=== PATIENT | female | born 1965 | race Caucasian/White ===

== ENCOUNTER → 2018-01-21 | Outpatient (CLI) | payer OTHER ==
[~2018-01-21] MED LIST: CLONAZEPAM 1 MG1 M1 PO; LEXAPRO20 MG PO; NEURONTIN 300M300 M2 PO; NORCO 5-325 TA1 EACH PO; PHENERGAN 25 MG25 M1 PO; SEROQUEL; ZOCOR 10 MG TAB10 MG PO; ZOFRAN4 MG PO; [UNRECOGNIZED DRUG - OTHER] PO
== END ==
LOC: M.NUC 01-15 07:30
DX: K21.9 Gastro-esophageal reflux disease without esophagitis (principal)

== ENCOUNTER 2018-12-30 16:48 | Emergency (ER) | payer OTHER ==
[~2018-12-30] VITALS: Ht 167.6 cm; Wt 104.3 kg
[2018-12-30] MEDS ORDERED: REGLAN 10 MG TA10 MG PO (17:04)
[2018-12-30 17:40] LABS: ABSOLUTE BASOPHILS 0.1 thou/uL (0.0-0.2); ABSOLUTE EOSINOPHILS 0.1 thou/uL (0.0-0.7); ABSOLUTE LYMPHOCYTES 1.3 thou/uL (0.8-5.3); ABSOLUTE MONOCYTES 0.4 thou/uL (0.0-1.2); ABSOLUTE NEUTROPHILS 5.2 thou/uL (1.6-8.1); BASOPHILS 0.7 %; HEMATOCRIT 38.4 % (37.0-47.0); HEMOGLOBIN 13.2 gm/dL (12.0-15.0); LYMPHOCYTES 18.7 %; MCH 30.1 pg (26.0-34.0); MCHC 34.2 g/dL (28.0-37.0); MCV 87.9 fL (80.0-100.0); MPV 8.3 fl. (7.2-11.1); NUCLEATED RBCS 0 /100WBC; PLATELET COUNT* 181 thou/uL (150-400); POLYS 73.6 %; RBC 4.37 mil/uL (4.20-5.00); RDW-CV 15.6 % (10.5-14.5)
[2018-12-30 17:55] LABS: CREATININE 1.1 mg/dL (0.6-1.3)
[2018-12-30 17:58] LABS: POTASSIUM 2.9 mmol/L (3.5-5.1)
[2018-12-30 17:59] LABS: ALBUMIN 3.3 g/dL (3.4-5.0); MAGNESIUM 1.8 mg/dL (1.8-2.4); TOTAL BILIRUBIN 0.2 mg/dL (<0.1-1.0); TOTAL PROTEIN 7.3 g/dL (6.4-8.2)
[2018-12-30 18:52] LABS: URINE BILIRUBIN NEGATIVE (Negative); URINE BLOOD 1+ (Negative); URINE CLARITY CLEAR; URINE COLOR YELLOW; URINE GLUCOSE-RANDOM NEGATIVE (Negative); URINE KETONES NEGATIVE (Negative); URINE LEUKOCYTES-REFLEX NEGATIVE (Negative); URINE NITRITE-REFLEX NEGATIVE (Negative); URINE PROTEIN NEGATIVE (Negative); URINE UROBILINOGEN 0.2 E.U./dl (0.2-1.0)
[2018-12-30 19:02] LABS: BACTERIA-REFLEX 1-9 Few /HPF (None Seen); CRYSTALS None Seen /LPF (None Seen); HYALINE CASTS 0-3 Few /LPF (None Seen); MUCUS 0-3 Light strn/LPF (None Seen); SQUAMOUS >10 Many /LPF (0-3); URINE RBC 0-2 Rare /HPF (0-2); URINE WBC-REFLEX 0-5 Rare /HPF (0-5)
[2018-12-30 19:13] LABS: AMP/METHAMP Negative (Negative); BARBITURATES Negative (Negative); BENZODIAZEPINES POSITIVE (Negative); COCAINE Negative (Negative); METHADONE Negative (Negative); OPIATES Negative (Negative); PCP Negative (Negative); THC POSITIVE (Negative)
[2018-12-30 20:23] VITALS: BP 128/74
--- NOTE | 2018-12-31 10:05 | EKG ---
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: MEKA : 1965 Requested By: Anel Irby Order Number: [id number] MD: Reilly Laughlin Measurements Intervals [place] Rate: 98 P: 38 [place]: 167 QRS: -15 QRSD: 99 T: 62 QT: 369 QTc: 472 Interpretive Statements Sinus rhythm Probable left atrial enlargement Borderline left axis deviation Low voltage, precordial leads Abnormal R-wave progression, early transition No previous ECG available for comparison Electronically Signed On 12-31-2018 10:04:49 CDT by Reilly Laughlin [email or web address] <ELECTRONICALLY SIGNED> By: Reilly Laughlin MD, [facility] 12/31/18 1004 05 05 Reilly Laughlin MD, [facility] /EPI
== END 2018-12-30 19:46 | disposition home or self-care (01) ==
LOC: M.ERS 16:48
PROVIDERS: Personal Emergency Response Attendant
DX: E87.6 Hypokalemia (principal); R20.0 Anesthesia of skin; R20.2 Paresthesia of skin; F32.9 Major depressive disorder, single episode, unspecified; F41.9 Anxiety disorder, unspecified; Z90.710 Acquired absence of both cervix and uterus; Z90.49 Acquired absence of other specified parts of digestive tract; Z85.118 Personal history of other malignant neoplasm of bronchus and lung

== ENCOUNTER 2019-09-27 16:30 | Observation (INO) | payer OTHER ==
[~2019-09-27] VITALS: Ht 167.6 cm; Wt 90.7 kg
[~2019-09-27 16:30] MED LIST changes: +REGLAN 10 MG TA10 MG PO; -SEROQUEL; +SEROQUEL XR150 MG PO
[2019-09-27 16:38] VITALS: BP 126/78
[2019-09-27 16:55] LABS: ABSOLUTE BASOPHILS 0.1 thou/uL (0.0-0.2); ABSOLUTE EOSINOPHILS 0.1 thou/uL (0.0-0.7); ABSOLUTE LYMPHOCYTES 1.6 thou/uL (0.8-5.3); ABSOLUTE MONOCYTES 0.3 thou/uL (0.0-1.2); ABSOLUTE NEUTROPHILS 2.4 thou/uL (1.6-8.1); BASOPHILS 1.2 %; HEMATOCRIT 44.6 % (37.0-47.0); HEMOGLOBIN 15.6 gm/dL (12.0-15.0); LYMPHOCYTES 36.4 %; MCH 35.2 pg (26.0-34.0); MCHC 34.9 g/dL (28.0-37.0); MCV 100.6 fL (80.0-100.0); MONOCYTES 6.7 %; MPV 8.2 fl. (7.2-11.1); NUCLEATED RBCS 0 /100WBC; PLATELET COUNT* 136 thou/uL (150-400); POLYS 53.7 %; RBC 4.43 mil/uL (4.20-5.00); RDW-CV 15.8 % (10.5-14.5); WBC 4.4 thou/uL (4.0-11.0)
[2019-09-27 17:03] LABS: CALCIUM 8.9 mg/dL (8.5-10.1)
[2019-09-27 17:06] LABS: APTT 25.9 Seconds (25.0-31.3); PROTIME 10.7 Seconds (9.20-11.50)
[2019-09-27 17:14] LABS: ALBUMIN 3.4 g/dL (3.4-5.0); TOTAL BILIRUBIN 0.4 mg/dL (<0.1-1.0); TOTAL PROTEIN 6.7 g/dL (6.4-8.2)
[2019-09-27 21:30] LABS: URINE BILIRUBIN NEGATIVE (Negative); URINE BLOOD 1+ (Negative); URINE CLARITY CLEAR; URINE COLOR YELLOW; URINE GLUCOSE-RANDOM NEGATIVE (Negative); URINE KETONES NEGATIVE (Negative); URINE LEUKOCYTES-REFLEX NEGATIVE (Negative); URINE NITRITE-REFLEX NEGATIVE (Negative); URINE PROTEIN NEGATIVE (Negative); URINE SPECIFIC GRAVITY 1.025 (1.005-1.030)
[2019-09-27 21:41] LABS: BACTERIA-REFLEX 1-9 Few /HPF (None Seen); CASTS None Seen /LPF (None Seen); CRYSTALS None Seen /LPF (None Seen); SQUAMOUS 0-3 Few /LPF (0-3); URINE RBC 0-2 Rare /HPF (0-2); URINE WBC-REFLEX 0-5 Rare /HPF (0-5)
[2019-09-27 22:00] VITALS: BP 131/94
[2019-09-27 22:02] VITALS: BP 109/71
[2019-09-28] VITALS (8 sets, daily range): BP systolic 73–132; BP diastolic 51–84
--- NOTE | 2019-09-28 02:59 | NUR ---
ASSUMED CARE OF PT AT 2200 FROM THE ER. PT IS ALERT AND ORIENTED. VSS. PERRLA. NO COMPLAINTS OF PAIN. STEADY GAIT. PT IS IN SINUS RYTHM ON THE TELEMETRY. PT IS RESTING COMFORTABLY IN BED. RESPIRATIONS ARE EVEN AND NONLABORED. WILL CONTINUE TO MONITOR PT.
[2019-09-28] MEDS ORDERED: FLUCONAZOLE 10100 MG PO (07:53)
[2019-09-28] MEDS ORDERED: LEVAQUIN 750 M750 MG PO (07:53)
[2019-09-28 08:37] LABS: ABSOLUTE LYMPHOCYTES 1.1 thou/uL (0.8-5.3); ABSOLUTE MONOCYTES 0.4 thou/uL (0.0-1.2); ABSOLUTE NEUTROPHILS 2.6 thou/uL (1.6-8.1); BASOPHILS 0.7 %; EOSINOPHILS 1.2 %; HEMOGLOBIN 14.2 gm/dL (12.0-15.0); LYMPHOCYTES 25.8 %; MCH 34.8 pg (26.0-34.0); MCHC 34.7 g/dL (28.0-37.0); MCV 100.3 fL (80.0-100.0); MONOCYTES 9.4 %; MPV 7.6 fl. (7.2-11.1); NUCLEATED RBCS 0 /100WBC; PLATELET COUNT* 118 thou/uL (150-400); POLYS 62.9 %; RBC 4.09 mil/uL (4.20-5.00); RDW-CV 15.7 % (10.5-14.5); WBC 4.1 thou/uL (4.0-11.0)
[2019-09-28 09:04] LABS: ALBUMIN 3.2 g/dL (3.4-5.0); CALCIUM 8.3 mg/dL (8.5-10.1); CREATININE 0.9 mg/dL (0.6-1.3); POTASSIUM 3.2 mmol/L (3.5-5.1); TOTAL BILIRUBIN 0.5 mg/dL (<0.1-1.0); TOTAL PROTEIN 6.3 g/dL (6.4-8.2)
--- NOTE | 2019-09-28 13:42 | 2DMMODE ---
[place] [address] 2 D/M-MODE ECHOCARDIOGRAM Name: JAMESON BENOITNikos Knott Room: [address] [place]#: [id number] Admission: 09/27/19 Attend Phys: Rosalina Shepherd, Discharge: Date of : 67 Date of Service: 09/28/19 1341 Report #: [id number] THIS REPORT FOR: cc: Summer Alexander,Summer Valerio,Doug Schilling MD [facility] ~ APPROVED REPORT Study performed: 09/28/2019 10:06:59 EXAM: Comprehensive 2D, Doppler, and color-flow Echocardiogram Patient Location: In-Patient BSA: 2.00 HR: 94 bpm BP: 114/73 mmHg Other Information Study Quality: Fair Indications Atrial Fibrillation 2D Dimensions IVSd: 10.63 (7-11mm) LVOT Diam: 19.92 (18-24mm) LVDd: 44.24 mm PWd: 11.12 (7-11mm) Ascending Ao: 25.64 (22-36mm) LVDs: 35.22 (25-40mm) Aortic Root: 24.91 mm Volumes Left Atrial Volume (Systole) LA ESV Index: 19.60 mL/m2 Aortic Valve AoV Peak Tank.: 1.06 m/s AO Peak Gr.: 4.48 mmHg LVOT Max P.73 mmHg AO Mean Gr.: 2.43 mmHg LVOT Mean P.67 mmHg LVOT Max V: 0.83 m/s AO V2 VTI: 20.86 cm LVOT Mean V: 0.61 m/s JACQUELINE (VTI): 3.10 cm2 LVOT V1 VTI: 20.72 cm Mitral Valve E/A Ratio: 1.15 [place] [address] 2 D/M-MODE ECHOCARDIOGRAM Name: PRICE BENOIT Room: [address]#: [id number] Admission: 09/27/19 Attend Phys: Rosalina Shepherd, Discharge: Date of : 67 Date of Service: 09/28/19 1341 Report #: [id number] MV Decel. Time: 206.16 ms MV E Max Tank.: 0.87 m/s MV PHT: 59.79 ms MVA (PHT): 3.68 cm2 TDI E/Lateral E': 9.67 E/Medial E': 9.67 Medial E' Tank.: 0.09 m/s Lateral E' Tank.: 0.09 m/s Pulmonary Valve PV Peak Tank.: 0.77 m/s PV Peak Gr.: 2.35 mmHg Tricuspid Valve RAP Estimate: 5.00 mmHg TR Peak Gr.: 6.11 mmHg RVSP: 11.11 mmHg PA Pressure: 11.11 mmHg Left Ventricle The left ventricle is normal size. There is normal LV segmental wall motion. There is normal left ventricular wall thickness. Left ventricular systolic function is normal. The left ventricular ejection fraction is within the normal range. LVEF is 60-65%. The left ventricular diastolic function is normal. Right Ventricle The right ventricle is normal size. The right ventricular systolic function is normal. Atria The left atrium size is normal. The right atrium size is normal. Aortic Valve The aortic valve is normal in structure. No aortic regurgitation is present. There is no aortic valvular stenosis. Mitral Valve The mitral valve is normal in structure. There is no mitral valve regurgitation noted. No evidence of mitral valve stenosis. Tricuspid Valve The tricuspid valve is normal in structure. Trace tricuspid regurgitation. [place] [address] 2 D/M-MODE ECHOCARDIOGRAM Name: PRICE BENOIT Room: [address]#: [id number] Admission: 09/27/19 Attend Phys: Rosalina Shepherd, Discharge: Date of : 67 Date of Service: 09/28/19 1341 Report #: [id number] The pulmonary valve is normal in structure. There is no pulmonic valvular regurgitation. Great Vessels The aortic root is normal in size. IVC is normal in size and collapses >50% with inspiration. Pericardium There is no pericardial effusion. <Conclusion> The left ventricle is normal size. There is normal left ventricular wall thickness. Left ventricular systolic function is normal. The left ventricular ejection fraction is within the normal range. LVEF is 60-65%. The left ventricular diastolic function is normal. The right ventricle is normal size. The left atrium size is normal. The aortic valve is normal in structure. The mitral valve is normal in structure. The tricuspid valve is normal in structure. IVC is normal in size and collapses >50% with inspiration. There is no pericardial effusion. There is normal LV segmental wall motion. <ELECTRONICALLY SIGNED> By: Doug King MD, FACC 09/28/19 1341 1341 1341 Doug King MD, FACC /INF
--- NOTE | 2019-09-28 17:00 | NUR ---
ASSUMED CARE OF PT AROUND 0730 THIS AM. REFER TO ASSESSMENT. PT IN SR THIS SHIFT. ECHO OBTAINED. PT GIVEN HEART MONITOR FROM CARDIOLOGY TO TAKE HOME WITH HER. PT GIVEN IV BOLUS X2 TO CORRECT ORTHOSTATIC HYPOTENSION. PT GIVEN ROBERT HOSE TO WEAR AT HOME. OK WITH DISCHARGE FROM CARDIOLOGY AND HOSPITALIST. PT GIVEN DC INSTRUCTIONS AND VERBALIZES UNDERSTANDING. AWAITING US CAROTIDS BEFORE DC. NO OTHER CONCERNS AT THIS TIME. CLWR. WCTM.
--- NOTE | 2019-09-28 17:10 | NUR ---
PT.HAD PHYSICAL THERAPY. THEY RECOMMENDED A FRONT WHEEL WALKER FOR HOME. ROSARIO/PROVIDER [employer]US DAVIDE Knott FWW. ORDER OBTAINED AND FAXED TO HER. ORIGINAL COPY FOR David TO DISPENSE A WALKER FROM THEIR CONSIGNMENT CLOSET, IN FRONT OF CHART.
--- NOTE | 2019-09-29 08:38 | EKG ---
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 : 1965 Requested By: Dheeraj Gomez Order Number: [id number] MD: Jacky Rosenberg Measurements Intervals [place] Rate: 82 P: [place]: QRS: -29 QRSD: 120 T: 62 QT: 396 QTc: 463 Interpretive Statements Sinus rhythm with premature atrial contractions Baseline wander in lead(s) II,aVR,aVF Compared to ECG 12/30/2018 17:06:56 Premature atrial contractions now present Electronically Signed On 09-29-2019 8:38:00 CDT by Jacky Rosenberg [email or web address] <ELECTRONICALLY SIGNED> By: Jacky Rosenberg MD, FACC 09/29/19 0838 170 00 Jacky Rosenberg MD, FACC /EPI
--- NOTE | 2019-09-29 08:39 | EKG ---
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 : 1965 Requested By: Dheeraj Gomez Order Number: [id number] MD: Jacky Rosenberg Measurements Intervals [place] Rate: 81 P: [place]: QRS: -19 QRSD: 108 T: 50 QT: 413 QTc: 480 Interpretive Statements Sinus rhythm with premature atrial contractions borderline prolonged QT interval Compared to ECG 09/27/2019 17:01:19 No significant changes noted Electronically Signed On 09-29-2019 8:38:26 CDT by Jacky Rosenberg [email or web address] <ELECTRONICALLY SIGNED> By: Jacky Rosenberg MD, FAC 09/29/19 0838 1742 1742 Jacky Rosenberg MD, [facility] /EPI
== END 2019-09-28 17:30 | disposition home or self-care (01) ==
LOC: M.ERS 16:30 → M.TBA 18:18 → M.2W 18:18
PROVIDERS: Family Medicine; ADMIT Internal Medicine; ATTEND Internal Medicine
DX: I49.9 Cardiac arrhythmia, unspecified (principal); I48.91 Unspecified atrial fibrillation; I10 Essential (primary) hypertension; R42 Dizziness and giddiness; F41.9 Anxiety disorder, unspecified; F32.9 Major depressive disorder, single episode, unspecified

== ENCOUNTER 2019-10-03 18:16 | Observation (INO) | payer OTHER ==
[~2019-10-03] VITALS: Ht 167.6 cm; Wt 86.2 kg
[~2019-10-03 18:16] MED LIST changes: +FLUCONAZOLE 10100 MG PO; +LEVAQUIN 750 M750 MG PO
[2019-10-03 18:25] VITALS: BP 162/100
[2019-10-03 19:48] LABS: ABSOLUTE MONOCYTES 0.6 thou/uL (0.0-1.2); ABSOLUTE NEUTROPHILS 4.4 thou/uL (1.6-8.1); BASOPHILS 0.5 %; EOSINOPHILS 0.6 %; HEMATOCRIT 41.1 % (37.0-47.0); HEMOGLOBIN 14.2 gm/dL (12.0-15.0); LYMPHOCYTES 16.1 %; MCH 35.2 pg (26.0-34.0); MCHC 34.6 g/dL (28.0-37.0); MCV 101.7 fL (80.0-100.0); MONOCYTES 9.4 %; MPV 8.3 fl. (7.2-11.1); NUCLEATED RBCS 0 /100WBC; PLATELET COUNT* 109 thou/uL (150-400); POLYS 73.4 %; RBC 4.04 mil/uL (4.20-5.00); RDW-CV 15.7 % (10.5-14.5)
[2019-10-03 20:00] LABS: CALCIUM 8.8 mg/dL (8.5-10.1)
[2019-10-03 20:04] LABS: ALBUMIN 3.1 g/dL (3.4-5.0); TOTAL BILIRUBIN 0.5 mg/dL (<0.1-1.0); TOTAL PROTEIN 6.4 g/dL (6.4-8.2)
[2019-10-03 20:05] LABS: POTASSIUM 2.9 mmol/L (3.5-5.1)
[2019-10-03 20:18] LABS: MAGNESIUM 1.4 mg/dL (1.8-2.4)
[2019-10-03 20:51] LABS: URINE BILIRUBIN NEGATIVE (Negative); URINE BLOOD 1+ (Negative); URINE CLARITY CLEAR; URINE COLOR YELLOW; URINE GLUCOSE-RANDOM NEGATIVE (Negative); URINE KETONES NEGATIVE (Negative); URINE LEUKOCYTES-REFLEX NEGATIVE (Negative); URINE NITRITE-REFLEX NEGATIVE (Negative); URINE PROTEIN NEGATIVE (Negative); URINE SPECIFIC GRAVITY 1.025 (1.005-1.030)
[2019-10-03 21:01] LABS: BACTERIA-REFLEX 1-9 Few /HPF (None Seen); CASTS None Seen /LPF (None Seen); CRYSTALS None Seen /LPF (None Seen); SQUAMOUS 0-3 Few /LPF (0-3); URINE RBC 0-2 Rare /HPF (0-2); URINE WBC-REFLEX 0-5 Rare /HPF (0-5)
[2019-10-04] VITALS (7 sets, daily range): BP systolic 113–152; BP diastolic 72–90
[2019-10-04 09:05] LABS: CALCIUM 7.9 mg/dL (8.5-10.1); CREATININE 0.7 mg/dL (0.6-1.3); MAGNESIUM 1.4 mg/dL (1.8-2.4); POTASSIUM 3.1 mmol/L (3.5-5.1)
--- NOTE | 2019-10-04 09:07 | EKG ---
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: IN : 1965 Requested By: Anel Irby Order Number: [id number] MD: Jacky Rosenberg Measurements Intervals [place] Rate: 105 P: 58 NE: 164 QRS: -16 QRSD: 110 T: 84 QT: 364 QTc: 482 Interpretive Statements Sinus tachycardia Borderline left axis deviation Compared to ECG 09/27/2019 17:42:31 No significant changes Electronically Signed On 10-04-2019 9:07:29 CDT by Jacky Rosenberg [email or web address] <ELECTRONICALLY SIGNED> By: Jacky Rosenberg MD, FACC 10/04/19906 15 15 Jacky Rosenberg MD, [facility] /EPI
[2019-10-04 17:25] LABS: URINE POTASSIUM-RANDOM 36.8 mmol/L
[2019-10-04] MEDS ORDERED: SEROQUEL400 MG PO (21:48)
[2019-10-05] VITALS (9 sets, daily range): BP systolic 101–142; BP diastolic 50–91
[2019-10-05 08:09] LABS: POTASSIUM 3.3 mmol/L (3.5-5.1)
[2019-10-05 08:56] LABS: CREATININE 0.7 mg/dL (0.6-1.3); MAGNESIUM 1.5 mg/dL (1.8-2.4); PHOSPHORUS* 2.4 mg/dL (2.5-4.9)
[2019-10-05] MEDS ORDERED: LEVAQUIN 750 M750 MG PO ×3 (09:17→09:45)
[2019-10-05] MEDS ORDERED: FLUCONAZOLE 10100 MG PO ×3 (09:17→09:45)
[2019-10-05] MEDS ORDERED: NORCO 5-325 TA1 EAC1 PO ×2 (09:35→09:45)
[2019-10-05] MEDS ORDERED: ONDANSETRON HCL4 M2 PO ×2 (09:35→09:45)
[2019-10-05] MEDS ORDERED: MIDODRINE HCL 55 M1 PO (16:25)
--- NOTE | 2019-10-07 10:17 | CON ---
[address] [address] CONSULTATION Name: PRICE BENOIT Room: [address] Noelle Cuenca#: [id number] Admission: 10/03/19 Attend Phys: Sonny Drummond Discharge: 10/05/19 Date of : 67 Report #: [id number] THIS REPORT FOR: //name// cc: Summer Alexander Anna S. DO ~ THIS REPORT FOR: //name// CC: Summer Allen DATE OF SERVICE: 10/05/2019 REQUESTING PHYSICIAN: Ed Cannon DO. REASON FOR CONSULTATION: Hypokalemia, which is a recurrent problem. HISTORY OF PRESENT ILLNESS: The patient is a 54-year-old female with medical history significant for orthostatic hypotension, chronic atrial fibrillation, depression, history of COPD, history of lung cancer, restless legs syndrome, she presents with complaints of weakness. She was found to have recurrent syncopal episode and recurrent hypokalemia. Potassium is around 2.9-3.0. MEDICATIONS: At home reviewed. She is not on any medication that can cause hypokalemia. FAMILY HISTORY: Negative for hypokalemia. SOCIAL HISTORY: Former user of tobacco, current use of marijuana. No alcohol abuse. REVIEW OF SYSTEMS: Positive for overall weakness, poor appetite, depression, frequent dizziness. PAST SURGICAL HISTORY: Partial right pneumonectomy due to lung cancer. There is no evidence of residual mass or pneumonia or pneumothorax. PHYSICAL EXAMINATION: GENERAL: Awake, alert, oriented, in no acute distress. VITAL SIGNS: Blood pressure 101/67, heart rate is 95, afebrile. HEENT: Pupils are round. NECK: Fatty. LUNGS: Clear. CARDIOVASCULAR: Regular rate. ABDOMEN: Soft. LOWER EXTREMITIES: [place] [address] CONSULTATION Name: PRICE BENOIT Nikos Room: [address] Noelle Cuenca#: [id number] Admission: 10/03/19 Attend Phys: Sonny p[place] Discharge: 10/05/19 Date of : 67 Report #: [id number] LABORATORY DATA: Serum sodium 142, potassium 3.3, chloride 109, carbon dioxide 27, BUN 5, creatinine 0.7, magnesium 1.5, phosphorus 2.4, calcium 8.0. ASSESSMENT: Hypokalemia, coupled with hypocalcemia, hypophosphatemia and hypomagnesemia. Most likely, I think this is due to poor nutrition. Cannot rule out loss through the urine. PLAN: My plan is to collect a 24-hour urine for total potassium. If her potassium is high in the urine while it is low in the blood that would point towards renal potassium waste. So plan again is a 24-hour urine collection and will follow on potassium. Make sure we replace potassium, replace magnesium per protocol for now. <ELECTRONICALLY SIGNED> By: Paramjit Lora MD 10/07/19 1017 1529 1952Alexmarlon Lora MD /nt
== END 2019-10-05 17:15 | disposition home or self-care (01) ==
LOC: M.ERS 18:16 → M.TBA-ER 23:27 → M.2W 23:27
PROVIDERS: Internal Medicine; Personal Emergency Response Attendant; Registered Nurse; ADMIT Family Medicine; ATTEND Family Medicine
DX: E87.6 Hypokalemia (principal); I95.1 Orthostatic hypotension; M54.9 Dorsalgia, unspecified; G89.29 Other chronic pain; J44.9 Chronic obstructive pulmonary disease, unspecified; F41.9 Anxiety disorder, unspecified; B37.9 Candidiasis, unspecified; C34.91 Malignant neoplasm of unspecified part of right bronchus or lung; E83.51 Hypocalcemia; E83.39 Other disorders of phosphorus metabolism; E83.42 Hypomagnesemia; Z87.891 Personal history of nicotine dependence; Z90.49 Acquired absence of other specified parts of digestive tract; Z79.899 Other long term (current) drug therapy

== ENCOUNTER 2019-10-12 16:35 | Emergency (ER) | payer OTHER ==
[~2019-10-12] VITALS: Ht 167.6 cm; Wt 88.5 kg
[~2019-10-12 16:35] MED LIST changes: +MIDODRINE HCL 55 M1 PO; +NORCO 5-325 TA1 EAC1 PO; +ONDANSETRON HCL4 M2 PO; +SEROQUEL400 MG PO
[2019-10-12 18:50] VITALS: BP 100/69
[2019-10-12 18:56] LABS: URINE BILIRUBIN NEGATIVE (Negative); URINE BLOOD TRACE (Negative); URINE CLARITY CLEAR; URINE COLOR YELLOW; URINE GLUCOSE-RANDOM NEGATIVE (Negative); URINE KETONES NEGATIVE (Negative); URINE LEUKOCYTES-REFLEX NEGATIVE (Negative); URINE NITRITE-REFLEX NEGATIVE (Negative); URINE PROTEIN TRACE (Negative); URINE SPECIFIC GRAVITY >= 1.030 (1.005-1.030)
== END 2019-10-12 18:51 | disposition home or self-care (01) ==
LOC: M.ERS 16:35
PROVIDERS: Family Medicine
DX: E86.0 Dehydration (principal); R33.9 Retention of urine, unspecified; Z90.710 Acquired absence of both cervix and uterus; Z90.49 Acquired absence of other specified parts of digestive tract; Z98.51 Tubal ligation status; Z96.652 Presence of left artificial knee joint; Z85.118 Personal history of other malignant neoplasm of bronchus and lung

== ENCOUNTER 2019-10-17 23:59 | Observation (INO) | payer OTHER ==
[~2019-10-17] VITALS: Ht 170.2 cm; Wt 111.1 kg
[2019-10-18] VITALS (7 sets, daily range): BP systolic 93–138; BP diastolic 65–88
[2019-10-18 00:29] LABS: ABSOLUTE EOSINOPHILS 0.1 thou/uL (0.0-0.7); ABSOLUTE LYMPHOCYTES 1.3 thou/uL (0.8-5.3); ABSOLUTE MONOCYTES 0.4 thou/uL (0.0-1.2); ABSOLUTE NEUTROPHILS 2.8 thou/uL (1.6-8.1); BASOPHILS 0.6 %; EOSINOPHILS 1.5 %; HEMATOCRIT 42.5 % (37.0-47.0); HEMOGLOBIN 14.7 gm/dL (12.0-15.0); LYMPHOCYTES 28.3 %; MCH 35.1 pg (26.0-34.0); MCHC 34.7 g/dL (28.0-37.0); MCV 101.2 fL (80.0-100.0); MPV 7.7 fl. (7.2-11.1); NUCLEATED RBCS 0 /100WBC; PLATELET COUNT* 128 thou/uL (150-400); POLYS 60.6 %; RDW-CV 15.6 % (10.5-14.5); WBC 4.7 thou/uL (4.0-11.0)
[2019-10-18 00:38] LABS: CALCIUM 8.4 mg/dL (8.5-10.1); CREATININE 1.1 mg/dL (0.6-1.3); POTASSIUM 3.3 mmol/L (3.5-5.1)
[2019-10-18 00:42] LABS: TOTAL BILIRUBIN 0.4 mg/dL (<0.1-1.0); TOTAL PROTEIN 6.1 g/dL (6.4-8.2)
[2019-10-18 01:07] LABS: URINE BILIRUBIN NEGATIVE (Negative); URINE BLOOD TRACE (Negative); URINE CLARITY CLEAR; URINE COLOR YELLOW; URINE GLUCOSE-RANDOM NEGATIVE (Negative); URINE KETONES NEGATIVE (Negative); URINE LEUKOCYTES-REFLEX NEGATIVE (Negative); URINE NITRITE-REFLEX NEGATIVE (Negative); URINE PROTEIN NEGATIVE (Negative)
--- NOTE | 2019-10-18 04:06 | NUR ---
DAJUAN NOTIFIED UPON PT RETURN FROM CT. PT CONNECTED TO MONITOR
--- NOTE | 2019-10-18 05:50 | NUR ---
PATIENT PLACED ON HOSPITAL BED IN ED.
[2019-10-18 10:59] LABS: CALCIUM 7.9 mg/dL (8.5-10.1); CREATININE 0.8 mg/dL (0.6-1.3); MAGNESIUM 1.8 mg/dL (1.8-2.4); POTASSIUM 3.6 mmol/L (3.5-5.1)
--- NOTE | 2019-10-18 13:26 | EKG ---
[place] [address] ELECTROCARDIOGRAM REPORT Name: PRICE BENOIT Room: [address]#: [id number] Admission: 10/18/19 Attend Phys: Rosalina Shepherd, Discharge: Date of : 67 Date of Service: 10/18/19 0007 Report #: [id number] THIS REPORT FOR: //name// [facility] ED Test Date: 2019-10-18 Test Time: 00:07:38 Pat Name: PRICE BENOIT Department: Room: 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: : 1965 Requested By: Yola Brown Order Number: [id number] MD: Reilly Laughlin Measurements Intervals [place] Rate: 126 P: 45 [place]: 153 QRS: 13 QRSD: 102 T: 163 QT: 355 QTc: 515 Interpretive Statements Sinus tachycardia Probable left atrial enlargement RSR' in V1 or V2, right VCD or RVH Nonspecific T abnrm, anterolateral leads Prolonged QT interval Compared to ECG 10/03/2019 19:16:45 RSR' in V1 or V2 now present Prolonged QT interval now present Electronically Signed On 10-18-2019 13:26:49 CDT by Reilly Laughlin [email or web address] <ELECTRONICALLY SIGNED> By: Reilly Laughlin MD, [facility] 10/18/19 1326 Reilly Laughlin MD, [facility] /EPI
--- NOTE | 2019-10-18 15:51 | NUR ---
PT ADMITTED TO ROOM 226 AROUND 0825 THIS AM. REFER TO ASSESSMENT. CARDIOLOGY AND PSYCHOLOGY CONSULTED THIS SHIFT. AWAITING PSYCHOLOGISTS RECOMMENDATIONS AT THIS TIME. ANTICIPATE TILT TABLE TEST WITH CARDIOLOGY TOMORROW. PT TO BE NPO AFTER MIDNIGHT. ORTHOSTAT VSS OBTAINED THIS EVENING AND PT POSITIVE. PRN MIDODRINE ADMINISTERED. US TO CAROTIDS OBTAINED THIS SHIFT. POTASSIUM REPLACED THIS SHIFT. FALL PRECAUTIONS IN PLACE. NO OTHER CONCERNS AT THIS TIME. CLWR. WCTM.
--- NOTE | 2019-10-18 16:33 | NUR ---
Pt lives at home with . Pt has RW. Pt struggling with anxiety, medications contributing to symptoms according to the team and nurse says that she has informed the pt at recent previous admissions. Psych consulted. SW to continue to follow to assist with safe dc planning.
[2019-10-19] VITALS (16 sets, daily range): BP systolic 81–139; BP diastolic 52–90
--- NOTE | 2019-10-19 07:48 | NUR ---
Assumed pt care at approx 1930. Pt is awake and oriented x4. surveillance system monitor in place and is tracing SR. Pt is not in any distress. Pt c/o back pain relieved by pain meds given per JUN. Orthostatic BP is positive. Pt said she is not as dizzy as she has been. No acute changes overnight. Pt is advised to have nothing by mouth after midnight. Call light within reach. Hourly rounding done for pt safety. High fall precautions in place.
[2019-10-19] MEDS ORDERED: NEURONTIN 300M300 M2 PO (09:18)
[2019-10-19] MEDS ORDERED: SEROQUEL 100 M100 M1 PO (09:18)
[2019-10-19] MEDS ORDERED: MIDODRINE HCL10 MG PO (12:46)
--- NOTE | 2019-10-19 13:42 | NUR ---
PATIENT NPO FOR TILT TABLE TEST THIS AM, RESULTS SENT TO CARDIOLOGY AND ALEXANDRA GORDON HERE TO SEE PATIENT. PATIENT OK TO DISCHARGE HOME, FIRST DOSE OF INCREASED MIDODRINE GIVEN ORDERED. DR. WEINSTEIN NOTIFIED AND OK TO DISCHARGE. IV DC'D. PATIENT UP WITH ASSISTANCE THIS SHIFT. PRN HYDROCODONE GIVEN FOR BACK PAIN X 1. ORTHOSTATICS THIS AM WERE GIVEN TO DR. WEINSTEIN. VERBALIZES UNDERSTANDING OF PAPERWORK AND SCRIPT. PATIENT TAKEN OUT VIA WHEELCHAIR.
--- NOTE | 2019-10-21 14:43 | PROC ---
[address] [address] PROCEDURE REPORT Name: PRICE BENOIT Room: [address] Noelle Cuenca#: [id number] Admission: 10/18/19 Attend Phys: Rosalina Shepherd MD Discharge: 10/19/19 Date of : 67 Report #: [id number] THIS REPORT FOR: //name// cc: Summer Alexander Anna S. DO THIS REPORT FOR: //name// CC: Summer Shepherd DATE OF SERVICE: 10/19/2019 HEAD UPRIGHT TILT TABLE TEST TITLE OF PROCEDURE: Head upright tilt table testing. INDICATIONS: Head upright tilt-table testing was requested in this patient with a history of dizziness. PROCEDURE IN DETAIL: Head upright table testing was performed by placing the patient in the supine position. Vital signs were obtained in the resting position. ECG monitoring was performed throughout the procedure. RESULTS: The patient initially had a blood pressure of 103/74 with a pulse of 76. ECG showed a normal sinus rhythm. The patient was then elevated in the 70 degrees head upright position on the tilt table. After 5 minutes, the patient became lightheaded and blood pressure noted to be 93/72. The patient continued to complain of lightheadedness and blood pressure noted to be 80/55 with a pulse of 80 and in sinus rhythm. Because of the patient's symptoms and hypotensive findings, the procedure was abandoned. The patient was placed back into the supine position. At this time, blood pressure 134/66, pulse of 90 and she remained in sinus rhythm. IMPRESSION: 1. Suspicious head upright tilt-table testing for neurocardiogenic syncope. 2. The patient did demonstrate an orthostatic hypotensive response to head upright tilt-table testing. 3. Because of hypotension, the patient was not administered sublingual nitroglycerin. 4. There was no true syncope during the procedure. <ELECTRONICALLY SIGNED> By: Reilly Laughlin MD, [facility] 10/21/19 1443 1827 1905Reilly Laughlin MD, [facility] /nt
== END 2019-10-19 13:28 | disposition home or self-care (01) ==
LOC: M.ERS 23:59 → M.2W 10-18 05:24 → M.TBA-ER 10-18 05:24 → M.2W 10-18 08:36
PROVIDERS: Emergency Medicine; Internal Medicine; ADMIT Internal Medicine; ATTEND Internal Medicine
DX: Z03.818 Encounter for observation for suspected exposure to other biological agents ruled out (principal); R55 Syncope and collapse; G25.81 Restless legs syndrome; K31.84 Gastroparesis; G62.9 Polyneuropathy, unspecified; F32.9 Major depressive disorder, single episode, unspecified; F41.1 Generalized anxiety disorder; G47.00 Insomnia, unspecified; J44.9 Chronic obstructive pulmonary disease, unspecified; E87.6 Hypokalemia; Z85.118 Personal history of other malignant neoplasm of bronchus and lung

== ENCOUNTER 2019-10-23 19:34 | Emergency (ER) | payer OTHER ==
[~2019-10-23] VITALS: Ht 167.6 cm; Wt 78.9 kg
[~2019-10-23 19:34] MED LIST changes: +MIDODRINE HCL10 MG PO; +SEROQUEL 100 M100 M1 PO
[2019-10-23] MEDS ORDERED: PROAIR HFA8.5 GM INH (19:46)
[2019-10-23] MEDS ORDERED: SEROQUEL 100 M100 M1 PO (19:49)
[2019-10-23 19:55] LABS: ABSOLUTE BASOPHILS 0.1 thou/uL (0.0-0.2); ABSOLUTE EOSINOPHILS 0.1 thou/uL (0.0-0.7); ABSOLUTE LYMPHOCYTES 2.1 thou/uL (0.8-5.3); ABSOLUTE MONOCYTES 0.5 thou/uL (0.0-1.2); BASOPHILS 0.8 %; EOSINOPHILS 1.8 %; HEMATOCRIT 43.4 % (37.0-47.0); LYMPHOCYTES 30.8 %; MCH 35.3 pg (26.0-34.0); MCHC 34.7 g/dL (28.0-37.0); MCV 101.9 fL (80.0-100.0); MONOCYTES 7.9 %; MPV 7.8 fl. (7.2-11.1); NUCLEATED RBCS 0 /100WBC; PLATELET COUNT* 153 thou/uL (150-400); POLYS 58.7 %; RBC 4.25 mil/uL (4.20-5.00); RDW-CV 15.9 % (10.5-14.5); WBC 6.9 thou/uL (4.0-11.0)
[2019-10-23 20:07] LABS: INR 1.1; PROTIME 10.9 Seconds (9.20-11.50)
[2019-10-23 20:15] LABS: ALBUMIN 3.1 g/dL (3.4-5.0); TOTAL BILIRUBIN 0.4 mg/dL (<0.1-1.0); TOTAL PROTEIN 6.3 g/dL (6.4-8.2)
[2019-10-23 21:08] LABS: URINE BILIRUBIN NEGATIVE (Negative); URINE BLOOD NEGATIVE (Negative); URINE CLARITY CLEAR; URINE COLOR YELLOW; URINE GLUCOSE-RANDOM NEGATIVE (Negative); URINE KETONES NEGATIVE (Negative); URINE LEUKOCYTES-REFLEX NEGATIVE (Negative); URINE NITRITE-REFLEX NEGATIVE (Negative); URINE PROTEIN NEGATIVE (Negative); URINE SPECIFIC GRAVITY 1.025 (1.005-1.030); URINE UROBILINOGEN 0.2 E.U./dl (0.2-1.0)
[2019-10-23 22:47] VITALS: BP 123/85
--- NOTE | 2019-10-24 11:21 | EKG ---
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: : 1965 Requested By: Yola Brown Order Number: [id number] MD: Reilly Laughlin Measurements Intervals [place] Rate: 104 P: 56 MT: 154 QRS: -4 QRSD: 106 T: 88 QT: 330 QTc: 434 Interpretive Statements Sinus tachycardia Probable left atrial enlargement RSR' in V1 or V2, probably normal variant Compared to ECG 10/18/2019 00:07:38 rate has slowed Prolonged QT interval no longer present Electronically Signed On 10-24-2019 11:21:32 CDT by Reilly Laughlin [email or web address] <ELECTRONICALLY SIGNED> By: Reilly Laughlin MD, FAC 10/24/19 1121 1939 1939 Reilly Laughlin MD, [facility] /EPI
[2020-01-28] MEDS ORDERED: FLUDROCORTISON0.1 MG PO (09:21)
== END 2019-10-23 22:48 | disposition home or self-care (01) ==
LOC: M.ERS 19:34
PROVIDERS: Emergency Medicine
DX: F41.9 Anxiety disorder, unspecified (principal); R07.89 Other chest pain; R10.13 Epigastric pain; R10.32 Left lower quadrant pain; G25.81 Restless legs syndrome; G62.9 Polyneuropathy, unspecified; G89.29 Other chronic pain; F32.9 Major depressive disorder, single episode, unspecified; Z90.710 Acquired absence of both cervix and uterus; Z90.49 Acquired absence of other specified parts of digestive tract; Z98.51 Tubal ligation status; Z85.118 Personal history of other malignant neoplasm of bronchus and lung; Z96.652 Presence of left artificial knee joint

== ENCOUNTER 2019-10-24 21:52 | Emergency (ER) | payer OTHER ==
[~2019-10-24] VITALS: Ht 170.2 cm; Wt 81.7 kg
[~2019-10-24 21:52] MED LIST changes: +PROAIR HFA8.5 GM INH
[2019-10-24 22:17] LABS: ABSOLUTE EOSINOPHILS 0.1 thou/uL (0.0-0.7); ABSOLUTE LYMPHOCYTES 1.1 thou/uL (0.8-5.3); ABSOLUTE MONOCYTES 0.4 thou/uL (0.0-1.2); ABSOLUTE NEUTROPHILS 4.6 thou/uL (1.6-8.1); BASOPHILS 0.6 %; HEMATOCRIT 44.9 % (37.0-47.0); HEMOGLOBIN 15.4 gm/dL (12.0-15.0); MCHC 34.2 g/dL (28.0-37.0); MCV 102.3 fL (80.0-100.0); MONOCYTES 5.9 %; MPV 7.8 fl. (7.2-11.1); NUCLEATED RBCS 0 /100WBC; PLATELET COUNT* 149 thou/uL (150-400); POLYS 74.5 %; RBC 4.39 mil/uL (4.20-5.00); RDW-CV 16.2 % (10.5-14.5); WBC 6.2 thou/uL (4.0-11.0)
[2019-10-24 22:27] LABS: CALCIUM 9.2 mg/dL (8.5-10.1)
[2019-10-24 22:32] LABS: ALBUMIN 3.5 g/dL (3.4-5.0); TOTAL BILIRUBIN 0.5 mg/dL (<0.1-1.0); TOTAL PROTEIN 6.7 g/dL (6.4-8.2)
[2019-10-24 23:33] LABS: URINE BILIRUBIN NEGATIVE (Negative); URINE BLOOD TRACE (Negative); URINE CLARITY CLEAR; URINE COLOR YELLOW; URINE GLUCOSE-RANDOM NEGATIVE (Negative); URINE KETONES TRACE (Negative); URINE LEUKOCYTES-REFLEX NEGATIVE (Negative); URINE NITRITE-REFLEX NEGATIVE (Negative); URINE PROTEIN NEGATIVE (Negative); URINE SPECIFIC GRAVITY 1.025 (1.005-1.030); URINE UROBILINOGEN 0.2 E.U./dl (0.2-1.0)
[2019-10-25 00:48] VITALS: BP 146/95
== END 2019-10-25 00:48 | disposition home or self-care (01) ==
LOC: M.ERS 21:52
PROVIDERS: Emergency Medicine
DX: K31.84 Gastroparesis (principal); R11.2 Nausea with vomiting, unspecified; G25.81 Restless legs syndrome; G62.9 Polyneuropathy, unspecified; G89.29 Other chronic pain; F32.9 Major depressive disorder, single episode, unspecified; F41.9 Anxiety disorder, unspecified; Z90.710 Acquired absence of both cervix and uterus; Z90.49 Acquired absence of other specified parts of digestive tract; Z98.51 Tubal ligation status; Z96.652 Presence of left artificial knee joint; Z85.118 Personal history of other malignant neoplasm of bronchus and lung

== ENCOUNTER 2019-10-27 19:55 | Emergency (ER) | payer OTHER ==
[~2019-10-27] VITALS: Ht 167.6 cm; Wt 81.7 kg
[2019-10-27 21:02] LABS: ABSOLUTE LYMPHOCYTES 0.9 thou/uL (0.8-5.3); ABSOLUTE MONOCYTES 0.9 thou/uL (0.0-1.2); ABSOLUTE NEUTROPHILS 6.6 thou/uL (1.6-8.1); BASOPHILS 0.3 %; EOSINOPHILS 0.5 %; HEMATOCRIT 41.1 % (37.0-47.0); HEMOGLOBIN 14.1 gm/dL (12.0-15.0); LYMPHOCYTES 10.8 %; MCH 34.9 pg (26.0-34.0); MCHC 34.4 g/dL (28.0-37.0); MCV 101.5 fL (80.0-100.0); MONOCYTES 10.2 %; MPV 8.1 fl. (7.2-11.1); NUCLEATED RBCS 0 /100WBC; PLATELET COUNT* 124 thou/uL (150-400); POLYS 78.2 %; RBC 4.05 mil/uL (4.20-5.00); RDW-CV 15.7 % (10.5-14.5); WBC 8.4 thou/uL (4.0-11.0)
[2019-10-27 21:10] LABS: CALCIUM 8.6 mg/dL (8.5-10.1); CREATININE 0.9 mg/dL (0.6-1.3); POTASSIUM 3.4 mmol/L (3.5-5.1)
[2019-10-27 21:20] LABS: ALBUMIN 3.2 g/dL (3.4-5.0); TOTAL BILIRUBIN 0.6 mg/dL (<0.1-1.0); TOTAL PROTEIN 5.9 g/dL (6.4-8.2)
[2019-10-27 22:35] LABS: URINE BILIRUBIN NEGATIVE (Negative); URINE BLOOD NEGATIVE (Negative); URINE CLARITY CLEAR; URINE COLOR YELLOW; URINE GLUCOSE-RANDOM NEGATIVE (Negative); URINE KETONES NEGATIVE (Negative); URINE LEUKOCYTES-REFLEX NEGATIVE (Negative); URINE NITRITE-REFLEX NEGATIVE (Negative); URINE PROTEIN NEGATIVE (Negative)
[2019-10-27 22:43] LABS: AMP/METHAMP Negative (Negative); BARBITURATES Negative (Negative); BENZODIAZEPINES Negative (Negative); COCAINE Negative (Negative); METHADONE Negative (Negative); OPIATES POSITIVE (Negative); PCP Negative (Negative); THC POSITIVE (Negative)
[2019-10-27] MEDS ORDERED: HYDROCODON-ACE1 EAC7 PO (23:18)
[2019-10-27] MEDS ORDERED: MELOXICAM15 MG PO (23:18)
[2019-10-27 23:50] VITALS: BP 161/95
[2020-01-28] MEDS ORDERED: FLUDROCORTISON0.1 MG PO (09:21)
== END 2019-10-27 23:50 | disposition home or self-care (01) ==
LOC: M.ERS 19:55
PROVIDERS: Personal Emergency Response Attendant
DX: S83.8X2A Sprain of other specified parts of left knee, initial encounter (principal); I95.1 Orthostatic hypotension; G62.9 Polyneuropathy, unspecified; G25.81 Restless legs syndrome; F32.9 Major depressive disorder, single episode, unspecified; F41.9 Anxiety disorder, unspecified; Z90.710 Acquired absence of both cervix and uterus; Z98.51 Tubal ligation status; Z90.49 Acquired absence of other specified parts of digestive tract; Z96.652 Presence of left artificial knee joint; Z85.118 Personal history of other malignant neoplasm of bronchus and lung; W18.39XA Other fall on same level, initial encounter; Y93.89 Activity, other specified; Y92.89 Other specified places as the place of occurrence of the external cause; Y99.8 Other external cause status

== ENCOUNTER 2019-11-06 23:14 | Emergency (ER) | payer OTHER ==
[~2019-11-06 23:14] MED LIST changes: +HYDROCODON-ACE1 EAC7 PO; +MELOXICAM15 MG PO
[2020-01-05] MEDS ORDERED: GABAPENTIN100 MG PO ×2 (20:15)
[2020-01-05] MEDS ORDERED: QUETIAPINE FUM100 MG PO ×4 (20:16)
[2020-01-05] MEDS ORDERED: MIDODRINE HCL10 MG PO ×2 (20:17)
[2020-01-05] MEDS ORDERED: FLUDROCORTISON0.1 MG PO ×2 (20:18)
[2020-01-08] MEDS ORDERED: PROTONIX40 M2 PO ×2 (12:14)
[2020-01-08] MEDS ORDERED: SENNA S TABLET1 EACH PO ×2 (12:15)
== END 2019-11-06 23:29 | disposition left against medical advice (07) ==
LOC: M.ERS 23:14
DX: Z53.21 Procedure and treatment not carried out due to patient leaving prior to being seen by health care provider (principal)

== ENCOUNTER 2019-11-07 05:41 | Emergency (ER) | payer OTHER ==
[~2019-11-07] VITALS: Ht 167.6 cm; Wt 81.7 kg
[2019-11-07 06:52] LABS: URINE BILIRUBIN NEGATIVE (Negative); URINE BLOOD NEGATIVE (Negative); URINE CLARITY CLEAR; URINE COLOR YELLOW; URINE GLUCOSE-RANDOM NEGATIVE (Negative); URINE KETONES NEGATIVE (Negative); URINE LEUKOCYTES-REFLEX NEGATIVE (Negative); URINE NITRITE-REFLEX NEGATIVE (Negative); URINE PROTEIN NEGATIVE (Negative); URINE UROBILINOGEN 0.2 E.U./dl (0.2-1.0)
[2019-11-07 08:36] VITALS: BP 122/70
== END 2019-11-07 08:37 | disposition home or self-care (01) ==
LOC: M.ERS 05:41
PROVIDERS: Emergency Medicine
DX: R33.9 Retention of urine, unspecified (principal); G89.29 Other chronic pain; G62.9 Polyneuropathy, unspecified; G25.81 Restless legs syndrome; Z90.710 Acquired absence of both cervix and uterus; Z90.49 Acquired absence of other specified parts of digestive tract; Z98.51 Tubal ligation status; Z96.652 Presence of left artificial knee joint; Z85.118 Personal history of other malignant neoplasm of bronchus and lung

== ENCOUNTER 2019-11-21 00:10 | Emergency (ER) | payer OTHER ==
[~2019-11-21] VITALS: Ht 167.6 cm; Wt 81.7 kg
[2019-11-21 01:08] LABS: ABSOLUTE EOSINOPHILS 0.1 thou/uL (0.0-0.7); ABSOLUTE LYMPHOCYTES 1.3 thou/uL (0.8-5.3); ABSOLUTE MONOCYTES 0.5 thou/uL (0.0-1.2); BASOPHILS 0.7 %; HEMATOCRIT 42.9 % (37.0-47.0); HEMOGLOBIN 14.8 gm/dL (12.0-15.0); LYMPHOCYTES 21.9 %; MCHC 34.5 g/dL (28.0-37.0); MCV 101.3 fL (80.0-100.0); MONOCYTES 8.3 %; MPV 7.9 fl. (7.2-11.1); NUCLEATED RBCS 0 /100WBC; PLATELET COUNT* 160 thou/uL (150-400); POLYS 68.1 %; RBC 4.23 mil/uL (4.20-5.00); RDW-CV 15.3 % (10.5-14.5); WBC 5.9 thou/uL (4.0-11.0)
[2019-11-21 01:13] LABS: APTT 25.1 Seconds (25.0-31.3); PROTIME 10.6 Seconds (9.20-11.50)
[2019-11-21 01:18] LABS: ALBUMIN 2.9 g/dL (3.4-5.0); CALCIUM 8.9 mg/dL (8.5-10.1); CREATININE 0.9 mg/dL (0.6-1.3); POTASSIUM 3.6 mmol/L (3.5-5.1); TOTAL BILIRUBIN 0.4 mg/dL (<0.1-1.0); TOTAL PROTEIN 6.2 g/dL (6.4-8.2)
[2019-11-21] MEDS ORDERED: HYDROCODON-ACE1 EAC7 PO (02:29)
[2019-11-21 02:51] VITALS: BP 131/94
--- NOTE | 2019-11-22 14:39 | EKG ---
[place] [address] ELECTROCARDIOGRAM REPORT Name: PRICE BENOIT Room: [facility]#: [id number] Admission: 11/21/19 Attend Phys: Discharge: 11/21/19 Date of : 67 Date of Service: 11/21/19 0016 Report #: [id number] THIS REPORT FOR: //name// [facility] ED Test Date: 2019-11-21 Test Time: 00:16:07 Pat Name: PRICE BENOIT Department: Room: Gender: Pattern Filer: : 1965 Requested By: Anel Irby Order Number: [id number] MD: Doug King Measurements Intervals [place] Rate: 120 P: [place]: QRS: -11 QRSD: 100 T: 88 QT: 315 QTc: 445 Interpretive Statements Sinus tachycardia RSR' in V1 or V2, right VCD or RVH Compared to ECG 10/23/2019 19:39:58 sinus tachycardia persists Electronically Signed On 11-22-2019 14:39:15 CDT by Doug King [email or web address] <ELECTRONICALLY SIGNED> By: Doug King MD, [facility] 11/22/19 1439 0016 0016 Doug King MD, [facility] /EPI
== END 2019-11-21 02:53 | disposition home or self-care (01) ==
LOC: M.ERS 00:10
PROVIDERS: Personal Emergency Response Attendant
DX: S80.02XA Contusion of left knee, initial encounter (principal); R55 Syncope and collapse; G62.9 Polyneuropathy, unspecified; G25.81 Restless legs syndrome; G89.29 Other chronic pain; F32.9 Major depressive disorder, single episode, unspecified; F41.9 Anxiety disorder, unspecified; Z90.710 Acquired absence of both cervix and uterus; Z90.49 Acquired absence of other specified parts of digestive tract; Z98.51 Tubal ligation status; Z96.652 Presence of left artificial knee joint; Z85.118 Personal history of other malignant neoplasm of bronchus and lung; W18.39XA Other fall on same level, initial encounter; Y93.89 Activity, other specified; Y92.89 Other specified places as the place of occurrence of the external cause; Y99.8 Other external cause status

== ENCOUNTER 2019-12-01 20:55 | Emergency (ER) | payer OTHER ==
[~2019-12-01] VITALS: Ht 167.6 cm; Wt 81.7 kg
[2019-12-01 21:52] LABS: ABSOLUTE BASOPHILS 0.1 thou/uL (0.0-0.2); ABSOLUTE EOSINOPHILS 0.1 thou/uL (0.0-0.7); ABSOLUTE LYMPHOCYTES 0.9 thou/uL (0.8-5.3); ABSOLUTE MONOCYTES 0.4 thou/uL (0.0-1.2); ABSOLUTE NEUTROPHILS 6.6 thou/uL (1.6-8.1); BASOPHILS 0.8 %; HEMATOCRIT 46.7 % (37.0-47.0); HEMOGLOBIN 15.9 gm/dL (12.0-15.0); LYMPHOCYTES 11.8 %; MCH 34.5 pg (26.0-34.0); MCHC 34.1 g/dL (28.0-37.0); MCV 101.3 fL (80.0-100.0); MONOCYTES 4.6 %; MPV 8.2 fl. (7.2-11.1); NUCLEATED RBCS 0 /100WBC; PLATELET COUNT* 211 thou/uL (150-400); POLYS 81.8 %; RBC 4.61 mil/uL (4.20-5.00); RDW-CV 15.1 % (10.5-14.5)
[2019-12-01 21:57] LABS: CALCIUM 9.2 mg/dL (8.5-10.1); CREATININE 0.9 mg/dL (0.6-1.3); POTASSIUM 3.8 mmol/L (3.5-5.1)
[2019-12-01 22:01] LABS: ALBUMIN 3.5 g/dL (3.4-5.0); TOTAL BILIRUBIN 0.6 mg/dL (<0.1-1.0); TOTAL PROTEIN 6.9 g/dL (6.4-8.2)
[2019-12-01 23:25] VITALS: BP 141/105
== END 2019-12-01 23:40 | disposition home or self-care (01) ==
LOC: M.ERS 20:55
PROVIDERS: Personal Emergency Response Attendant
DX: K56.41 Fecal impaction (principal); R11.10 Vomiting, unspecified; F12.90 Cannabis use, unspecified, uncomplicated; G25.81 Restless legs syndrome; G89.29 Other chronic pain; Z79.899 Other long term (current) drug therapy; Z90.710 Acquired absence of both cervix and uterus; Z90.49 Acquired absence of other specified parts of digestive tract; Z98.51 Tubal ligation status; Z96.652 Presence of left artificial knee joint; Z85.118 Personal history of other malignant neoplasm of bronchus and lung

== ENCOUNTER 2019-12-02 03:50 | Emergency (ER) | payer OTHER ==
[~2019-12-02] VITALS: Ht 167.6 cm; Wt 81.7 kg
[2019-12-02 06:38] VITALS: BP 137/100
== END 2019-12-02 06:39 | disposition home or self-care (01) ==
LOC: M.ERS 03:50
DX: K31.84 Gastroparesis (principal); G25.81 Restless legs syndrome; G89.29 Other chronic pain; G62.9 Polyneuropathy, unspecified; Z90.710 Acquired absence of both cervix and uterus; Z90.49 Acquired absence of other specified parts of digestive tract; Z98.51 Tubal ligation status; Z96.652 Presence of left artificial knee joint; Z85.118 Personal history of other malignant neoplasm of bronchus and lung

== ENCOUNTER 2020-01-05 20:00 | Observation (INO) | payer OTHER ==
[~2020-01-05] VITALS: Ht 167.6 cm; Wt 82.6 kg
[2020-01-05 20:11] VITALS: BP 105/78
[2020-01-05] MEDS ORDERED: GABAPENTIN100 MG PO (20:15)
[2020-01-05] MEDS ORDERED: QUETIAPINE FUM100 MG PO ×2 (20:16)
[2020-01-05] MEDS ORDERED: MIDODRINE HCL10 MG PO (20:17)
[2020-01-05] MEDS ORDERED: FLUDROCORTISON0.1 MG PO (20:18)
[2020-01-05 20:35] LABS: URINE BILIRUBIN NEGATIVE (Negative); URINE BLOOD TRACE (Negative); URINE CLARITY CLEAR; URINE COLOR DARK YELLOW; URINE GLUCOSE-RANDOM NEGATIVE (Negative); URINE KETONES NEGATIVE (Negative); URINE LEUKOCYTES-REFLEX NEGATIVE (Negative); URINE NITRITE-REFLEX POSITIVE (Negative); URINE PROTEIN TRACE (Negative); URINE SPECIFIC GRAVITY >= 1.030 (1.005-1.030)
[2020-01-05 20:40] LABS: BACTERIA-REFLEX >30 Many /HPF (None Seen); CRYSTALS None Seen /LPF (None Seen); HYALINE CASTS 0-3 Few /LPF (None Seen); MUCUS >6 Heavy strn/LPF (None Seen); SQUAMOUS 0-3 Few /LPF (0-3); URINE RBC 0-2 Rare /HPF (0-2); URINE WBC-REFLEX 0-5 Rare /HPF (0-5)
[2020-01-05 20:58] LABS: ABSOLUTE LYMPHOCYTES 0.9 thou/uL (0.8-5.3); ABSOLUTE MONOCYTES 0.3 thou/uL (0.0-1.2); ABSOLUTE NEUTROPHILS 2.3 thou/uL (1.6-8.1); BASOPHILS 0.7 %; EOSINOPHILS 1.3 %; HEMATOCRIT 43.6 % (37.0-47.0); HEMOGLOBIN 15.1 gm/dL (12.0-15.0); MCH 34.5 pg (26.0-34.0); MCHC 34.7 g/dL (28.0-37.0); MCV 99.5 fL (80.0-100.0); MONOCYTES 8.8 %; MPV 7.9 fl. (7.2-11.1); NUCLEATED RBCS 0 /100WBC; PLATELET COUNT* 131 thou/uL (150-400); POLYS 63.2 %; RBC 4.38 mil/uL (4.20-5.00); RDW-CV 14.5 % (10.5-14.5); WBC 3.6 thou/uL (4.0-11.0)
[2020-01-05 21:08] LABS: CALCIUM 8.7 mg/dL (8.5-10.1)
[2020-01-05 21:12] LABS: ALBUMIN 3.1 g/dL (3.4-5.0); MAGNESIUM 1.7 mg/dL (1.8-2.4); TOTAL BILIRUBIN 0.6 mg/dL (<0.1-1.0)
[2020-01-05 21:17] LABS: POTASSIUM 2.6 mmol/L (3.5-5.1)
[2020-01-06 02:25] VITALS: BP 133/88; BP 142/88
[2020-01-06 08:00] VITALS: BP 114/70
[2020-01-06 11:11] LABS: ABSOLUTE MONOCYTES 0.4 thou/uL (0.0-1.2); BASOPHILS 0.5 %; EOSINOPHILS 0.9 %; HEMATOCRIT 40.9 % (37.0-47.0); HEMOGLOBIN 14.1 gm/dL (12.0-15.0); LYMPHOCYTES 21.5 %; MCH 34.2 pg (26.0-34.0); MCHC 34.3 g/dL (28.0-37.0); MCV 99.6 fL (80.0-100.0); MONOCYTES 8.3 %; MPV 7.8 fl. (7.2-11.1); NUCLEATED RBCS 0 /100WBC; PLATELET COUNT* 143 thou/uL (150-400); POLYS 68.8 %; RBC 4.11 mil/uL (4.20-5.00); RDW-CV 14.6 % (10.5-14.5); WBC 4.4 thou/uL (4.0-11.0)
[2020-01-06 11:19] LABS: CALCIUM 8.2 mg/dL (8.5-10.1); CREATININE 0.9 mg/dL (0.6-1.3); MAGNESIUM 2.2 mg/dL (1.8-2.4)
[2020-01-06 11:22] LABS: POTASSIUM 2.9 mmol/L (3.5-5.1)
[2020-01-06 12:00] VITALS: BP 103/62
--- NOTE | 2020-01-06 13:53 | EKG ---
[place] [address] ELECTROCARDIOGRAM REPORT Name: KAYCEEPRICE Room: [address]#: [id number] Admission: 01/06/20 Attend Phys: Rosalina Shepherd, Discharge: Date of : 67 Date of Service: 01/05/202102 Report #: [id number] THIS REPORT FOR: //name// [facility] ED Test Date: 2020-01-05 Test Time: 21:03:01 Pat Name: PRICE BENOIT Department: Room: [facility] Gender: F Tmh Teacher: : 1965 Requested By: Yola Brown Order Number: [id number] MD: Doug King Measurements Intervals [place] Rate: 109 P: 60 [place]: 163 QRS: -34 QRSD: 109 T: 80 QT: 350 QTc: 472 Interpretive Statements Sinus tachycardia Left axis deviation RSR' in V1 or V2, probably normal variant Compared to ECG 11/21/2019 00:16:07 Left-axis deviation now present Right ventricular hypertrophy no longer present Electronically Signed On 01-06-2020 13:53:16 CDT by Doug King [email or web address] <ELECTRONICALLY SIGNED> By: Doug King MD, FACC 01/06/20 1353 02 02 Doug King MD, FACC /EPI
[2020-01-06 15:58] VITALS: BP 110/70
[2020-01-06 20:00] VITALS: BP 126/77
[2020-01-06 23:40] VITALS: BP 122/80
[2020-01-07 04:00] VITALS: BP 115/76
[2020-01-07 05:09] LABS: HEMATOCRIT 37.1 % (37.0-47.0); HEMOGLOBIN 12.7 gm/dL (12.0-15.0); MCH 34.3 pg (26.0-34.0); MCHC 34.2 g/dL (28.0-37.0); MCV 100.2 fL (80.0-100.0); MPV 8.2 fl. (7.2-11.1); RBC 3.7 mil/uL (4.20-5.00); RDW-CV 14.4 % (10.5-14.5); WBC 3.8 thou/uL (4.0-11.0)
[2020-01-07 05:37] LABS: ALBUMIN 2.4 g/dL (3.4-5.0); CREATININE 0.8 mg/dL (0.6-1.3); MAGNESIUM 1.8 mg/dL (1.8-2.4); TOTAL BILIRUBIN 0.3 mg/dL (<0.1-1.0); TOTAL PROTEIN 4.8 g/dL (6.4-8.2)
[2020-01-07 05:47] LABS: POTASSIUM 2.8 mmol/L (3.5-5.1)
[2020-01-07 07:41] VITALS: BP 120/81
[2020-01-07 12:00] VITALS: BP 118/74
[2020-01-07 16:00] VITALS: BP 114/78
[2020-01-07 20:00] VITALS: BP 132/77
[2020-01-08] VITALS: BP 95/63
[2020-01-08 04:00] VITALS: BP 125/81
[2020-01-08 04:58] LABS: HEMATOCRIT 37.4 % (37.0-47.0); HEMOGLOBIN 12.7 gm/dL (12.0-15.0); MCH 34.1 pg (26.0-34.0); MCHC 33.9 g/dL (28.0-37.0); MCV 100.6 fL (80.0-100.0); MPV 7.9 fl. (7.2-11.1); RBC 3.72 mil/uL (4.20-5.00); RDW-CV 14.3 % (10.5-14.5); WBC 3.3 thou/uL (4.0-11.0)
[2020-01-08 05:27] LABS: ALBUMIN 2.4 g/dL (3.4-5.0); CALCIUM 8.2 mg/dL (8.5-10.1); CREATININE 0.7 mg/dL (0.6-1.3); POTASSIUM 3.3 mmol/L (3.5-5.1); TOTAL BILIRUBIN 0.3 mg/dL (<0.1-1.0); TOTAL PROTEIN 4.8 g/dL (6.4-8.2)
[2020-01-08 07:27] VITALS: BP 135/87
[2020-01-08] MEDS ORDERED: CEFDINIR300 MG PO (09:24)
[2020-01-08 12:00] VITALS: BP 117/77
[2020-01-08] MEDS ORDERED: PROTONIX40 M2 PO (12:14)
[2020-01-08] MEDS ORDERED: SENNA S TABLET1 EACH PO (12:15)
[2020-01-08] MEDS ORDERED: REGLAN 10 MG TA10 MG PO (12:15)
[2020-01-08 12:17] VITALS: BP 135/87
--- NOTE | 2020-01-10 18:07 | PATH ---
[address] [address] PATHOLOGY RPT PROCEDURE Name: SHANNON BENOIT Nikos Room: [address] Noelle Cuenca#: [id number] Admission: 01/06/20 Date of : 67 Discharge: 01/08/20 Report #: [id number] Path Case #: [id number] [facility] Accession Number: [id number] . 01 Material submitted: . PART A: small bowel - SMALL BOWEL BIOPSY PART B: stomach - ANTRAL BIOPSY PART C: colon - MID TRANSVERSE COLON POLYP. Modifiers: mid, transverse PART D: sigmoid colon - SIGMOID COLON POLYP . 01 Clinical history: . A. FOR IRON DEFICIENCY B. FOR H PYLORI HYPOALKEMIA/MAGNESEMIA, UTI, CONSTIPATION, ANOREXIA . 02 Diagnosis: A. Small bowel biopsy: - Moderate non-specific active duodenitis, negative for granulomas, significant intraepithelial lymphocytosis/villous atrophy, viral inclusions and dysplasia. . B. Antral biopsy: - Mild non-specific chronic antral gastritis, negative for Helicobacter pylori organisms, granulomas and dysplasia. . C. Mid transverse colon polyp: - Tubular adenoma, negative for high-grade dysplasia. . D. Sigmoid colon polyp: - Hyperplastic polyp. (EDMUND:pit 01/10/2020) [facility] 01/10/2020 1417 Local . 02 Comment: Special stain on B: H. pylori immuno ([facility]MUND:[facility] 01/10/2020) . 02 Electronically signed: . Tod Arora MD, Pathologist NPI- [id number] . 01 Gross description: . A. The specimen is received in formalin, labeled "Shannon Benoit, small bowel biopsy". Received are two segments of pale coleman soft tissue ranging in size from 0.4 to 0.6 cm in maximum dimensions. The specimen is submitted entirely in cassette A1. . B. The specimen is received in formalin, labeled "Shannon Benoit, [place] [address] PATHOLOGY RPT PROCEDURE Name: SHANNON BENOIT Room: [address]#: [id number] Admission: 01/06/20 Date of : 67 Discharge: 01/08/20 Report #: [id number] Path Case #: [id number] biopsy". Received are two segments of pale coleman soft tissue ranging in size from 0.5 to 0.7 cm in maximum dimensions. The specimen is submitted entirely in cassette B1. . C. The specimen is received in formalin, labeled "Shannon Grazyna, mid transverse colon polyp". Received is a segment of pale coleman soft tissue measuring 0.5 cm in maximum dimensions. The specimen is submitted entirely in cassette C1. . D. The specimen is received in formalin, labeled "Shannon Grazyna, sigmoid colon polyp". Received is a segment of pale coleman soft tissue measuring 0.4 cm in maximum dimensions. The specimen is submitted entirely in cassette D1. ([facility]; 01/09/2020) QAC/QAC 01/09/2020 1738 Local . 02 Pathologist provided ICD-10: K29.80, K29.50, D12.3, K63.5 . 02 CPT . 418105, 307225, 702609, 637440, J00947 Specimen Comment: A courtesy copy of this report has been sent to [phone] Specimen Comment: [phone], Specimen Comment: Report sent to ,DR PETERSEN / DR AKHTAR Performed at: 01 [facility] [address] [place] [address] [address], [place], [place] [id number] MD Steven Chirinos MD Phone: [phone] Performed at: [address] [facility] [address], [place] [id number] MD Tod Arora MD Phone: [phone]
--- NOTE | 2020-01-13 07:38 | CON ---
[address] [address] CONSULTATION Name: PRICE BENOIT Room: [address] Noelle Cuenca#: [id number] Admission: 01/06/20 Attend Phys: Rosalina Shepherd MD Discharge: 01/08/20 Date of : 67 Report #: [id number] THIS REPORT FOR: //name// cc: Summer Alexander Anna S. DO THIS REPORT FOR: //name// CC: Summer Renee DICTATED BY: Ashley Childs [facility] DATE OF SERVICE: 01/06/2020 PRIMARY CARE PHYSICIAN: Dr. Summer Alexander. Please note at the time of this dictation, the patient was seen and physically examined by myself. REASON FOR CONSULTATION: Abdominal pain, constipation. HISTORY OF PRESENT ILLNESS: This is a 54-year-old female who presented to the Emergency Room after having difficulty with urinating for the last 3-4 days, but she has also been having issues of constipation, which has gotten worse over the last couple of months. She states typically she goes about every 3-4 days, but this time, it seems like it has been a little bit longer and they have been very hard pellets. She did get a suppository last night and she had a small, she states, evacuation at that time. She does not typically take anything for her bowels at this time. She did have a colonoscopy back in 2018 that showed 4 out of the 6 polyps were tubular adenoma with repeat in 3 years. She also had an upper scope that showed hiatal hernia 2 cm that was noted and also on the colonoscopy some external hemorrhoids at that time. She also was noted to have idiopathic gastroparesis. The patient has noticed that over the last month, she has had a 30-pound weight loss and a decreased appetite and has not been wanting to eat very much, which could be contributing to her constipation that is keeping her very full and decreasing her appetite. Otherwise, no other issues noted at this time. ALLERGIES: No known drug allergies. MEDICATIONS: From home include clonazepam, metoclopramide, albuterol, ProAir inhaler, gabapentin, Seroquel, midodrine, fludrocortisone acetate, Zofran and some pantoprazole. PAST MEDICAL HISTORY: Idiopathic gastroparesis, constipation, [place] [address] CONSULTATION Name: PRICE BENOIT Room: [address]#: [id number] Admission: 01/06/20 Attend Phys: Rosalina Shepherd MD Discharge: 01/08/20 Date of : 67 Report #: [id number] cancer and some mental health issues. PAST SURGICAL HISTORY: Cholecystectomy, hysterectomy, tubal ligation and a right lobectomy for her lung cancer. FAMILY HISTORY: Negative for any GI or female cancers. SOCIAL HISTORY: Quit smoking about a year ago. She smokes marijuana about once a month and denies any alcohol use. REVIEW OF SYSTEMS: Twelve-point review of systems is essentially negative except what is mentioned in the HPI. PHYSICAL EXAMINATION: VITAL SIGNS: Temperature 36.3, pulse 104, respirations 18, blood pressure 142/88. HEART: Regular rate and rhythm. LUNGS: Diminished, absent on the right upper lobe. ABDOMEN: Soft, positive bowel sounds in all 4 quadrants with some left lower quadrant tenderness noted to palpation. LABORATORY DATA: Hemoglobin 15.1, white count 3.6, platelets 131. Potassium was low at 2.6 and getting replaced. GFR is 58 and she had positive nitrites. CT scan shows circumferential wall thickening in the lower rectum with adjacent edema. IMPRESSION: 1. Abdominal pain, left lower quadrant. 2. Chronic constipation. 3. Decreased appetite. 4. Weight loss about 30 pounds. 5. Idiopathic gastroparesis. 6. History of colon polyps, tubular adenoma, colonoscopy due next year in 2020. 7. Urinary tract infection. PLAN: 1. Dulcolax 5 mg 4 tablets now. 2. Continue with her clear liquids. 3. Await above results. She is also on MiraLax b.i.d. 4. The patient may benefit from a colonoscopy while she is here with her abnormality in the lower rectal area. Further recommendations to be made once Dr. Izaguirre sees [place] [address] CONSULTATION Name: PRICE BENOIT Nikos Room: [address] Noelle Cuenca#: [id number] Admission: 01/06/20 Attend Phys: Rosalina Shepherd MD Discharge: 01/08/20 Date of : 67 Report #: [id number] Thank you for allowing us to participate in this patient's care. Please do not hesitate to call with any questions in regard to this consult. <ELECTRONICALLY SIGNED> By: Milad Izaguirre DO 01/13/20 0738 1106 1159Milad Izaguirre DO /nt
== END 2020-01-08 16:11 | disposition home or self-care (01) ==
LOC: M.ERS 20:00 → M.TBA-ER 01-06 00:06 → M.2W 01-06 00:06
PROVIDERS: Emergency Medicine; Internal Medicine; ADMIT Internal Medicine; ATTEND Internal Medicine
DX: R10.9 Unspecified abdominal pain (principal); K59.00 Constipation, unspecified; E87.6 Hypokalemia; E83.42 Hypomagnesemia; N39.0 Urinary tract infection, site not specified; B96.89 Other specified bacterial agents as the cause of diseases classified elsewhere; F32.9 Major depressive disorder, single episode, unspecified; G47.00 Insomnia, unspecified; F41.1 Generalized anxiety disorder; J44.9 Chronic obstructive pulmonary disease, unspecified; R33.9 Retention of urine, unspecified; G25.81 Restless legs syndrome; I95.1 Orthostatic hypotension; M54.9 Dorsalgia, unspecified; G89.29 Other chronic pain; G62.9 Polyneuropathy, unspecified; Z85.118 Personal history of other malignant neoplasm of bronchus and lung; Z87.891 Personal history of nicotine dependence; Z79.899 Other long term (current) drug therapy

== ENCOUNTER 2020-01-26 04:17 | Emergency (ER) | payer OTHER ==
[~2020-01-26] VITALS: Ht 167.6 cm; Wt 79.4 kg
[~2020-01-26 04:17] MED LIST changes: +CEFDINIR300 MG PO; +FLUDROCORTISON0.1 MG PO; +GABAPENTIN100 MG PO; +PROTONIX40 M2 PO; +QUETIAPINE FUM100 MG PO; +SENNA S TABLET1 EACH PO
[2020-01-26 04:37] LABS: ABSOLUTE LYMPHOCYTES 0.6 thou/uL (0.8-5.3); ABSOLUTE MONOCYTES 0.4 thou/uL (0.0-1.2); ABSOLUTE NEUTROPHILS 4.6 thou/uL (1.6-8.1); BASOPHILS 0.7 %; EOSINOPHILS 0.4 %; HEMATOCRIT 43.2 % (37.0-47.0); HEMOGLOBIN 14.7 gm/dL (12.0-15.0); LYMPHOCYTES 10.9 %; MCH 33.6 pg (26.0-34.0); MCHC 34.1 g/dL (28.0-37.0); MCV 98.6 fL (80.0-100.0); MONOCYTES 7.1 %; MPV 7.3 fl. (7.2-11.1); NUCLEATED RBCS 0 /100WBC; PLATELET COUNT* 170 thou/uL (150-400); POLYS 80.9 %; RBC 4.38 mil/uL (4.20-5.00); RDW-CV 15.3 % (10.5-14.5); WBC 5.7 thou/uL (4.0-11.0)
[2020-01-26 04:54] LABS: CALCIUM 8.9 mg/dL (8.5-10.1); CREATININE 0.8 mg/dL (0.6-1.3); POTASSIUM 3.6 mmol/L (3.5-5.1)
[2020-01-26 04:58] LABS: ALBUMIN 2.9 g/dL (3.4-5.0); TOTAL BILIRUBIN 0.5 mg/dL (<0.1-1.0); TOTAL PROTEIN 6.3 g/dL (6.4-8.2)
[2020-01-26 06:06] LABS: URINE BILIRUBIN NEGATIVE (Negative); URINE BLOOD TRACE (Negative); URINE CLARITY CLEAR; URINE COLOR YELLOW; URINE GLUCOSE-RANDOM NEGATIVE (Negative); URINE KETONES TRACE (Negative); URINE LEUKOCYTES-REFLEX NEGATIVE (Negative); URINE NITRITE-REFLEX NEGATIVE (Negative); URINE PROTEIN NEGATIVE (Negative)
[2020-01-26 06:34] VITALS: BP 148/96
[2020-01-28] MEDS ORDERED: FLUDROCORTISON0.1 MG PO (09:21)
== END 2020-01-26 06:35 | disposition home or self-care (01) ==
LOC: M.ERS 04:17
PROVIDERS: Family Medicine
DX: R11.2 Nausea with vomiting, unspecified (principal); K59.00 Constipation, unspecified; R10.9 Unspecified abdominal pain; J44.9 Chronic obstructive pulmonary disease, unspecified; Z90.710 Acquired absence of both cervix and uterus; Z90.49 Acquired absence of other specified parts of digestive tract; Z79.899 Other long term (current) drug therapy

== ENCOUNTER 2020-01-27 02:30 | Observation (INO) | payer OTHER ==
[~2020-01-27] VITALS: Ht 167.6 cm; Wt 75.3 kg
[2020-01-27] VITALS (9 sets, daily range): BP systolic 83–160; BP diastolic 40–89
--- NOTE | ~2020-01-27 | CON ---
[address] [address] CONSULTATION Name: PRICE BENOIT Room: [address] MToyR.#: [id number] Admission: 01/27/20 Attend Phys: Gautam Arias MD Discharge: Date of : 67 Report #: [id number] THIS REPORT FOR: //name// cc: Summer Alexander Anna S. DO ~ DATE OF SERVICE: 01/27/2020 CONSULT REQUESTED BY: Ed Cannon DO. INDICATION FOR CONSULTATION: Shortness of breath and cough. HISTORY OF PRESENT ILLNESS: A 54-year-old female, extensive history of smoking, COPD as well as lung cancer, non-small cell, for which she has had surgery in the past. The patient also has a longstanding history of back pain and has had significant orthostatic hypotension. The patient is on Florinef as well as midodrine long-term for orthostatic hypotension. This time the patient is again admitted with a syncopal episode. She had fallen down and passed out, had injury to her left leg. She does have significant electrolyte abnormalities including markedly decreased potassium level and a low magnesium level as well. She does have shortness of breath as well as a cough, however, does not state that this is significantly worse than her baseline. She has some white sputum production, but again does not state that this is more than her baseline. She does not have chest pain. She does not have upper respiratory complaints. There is minor swelling of lower extremities, she has some pain in the left leg, which she attributes to the injury she has had earlier. REVIEW OF SYSTEMS: For 12 points is negative except as mentioned above. PAST MEDICAL HISTORY: Carcinoma lung. She had surgery for this. I do not have records available, but her history is consistent with non-small cell carcinoma in the right lung, status post resection in 2018. COPD, not on long-term oxygen, not on long-term prednisone. Hysterectomy, vaginal and rectal fistula repair, cholecystectomy, tubal ligation, anxiety, left knee replacement, insomnia, orthostatic hypotension requiring both midodrine as well as Florinef, longstanding back pain requiring stimulator, urine retention long-term, and peripheral neuropathy. Last available echocardiogram shows a normal left ventricular ejection fraction without significant elevation in right heart pressures. SOCIAL HISTORY: There is an extensive history of smoking more than 2 packs a day for more than 4 decades has now discontinued. No known history of heavy alcohol use or illegal drug use. CURRENT MEDICATIONS: List in [place] reviewed. HOME MEDICATIONS: [place] [address] CONSULTATION Name: PRICE BENOIT Room: [address] M.R.#: [id number] Admission: 01/27/20 Attend Phys: Gautam Arias MD Discharge: Date of : 67 Report #: [id number] FAMILY HISTORY: There is no pertinent family history known at this time. PHYSICAL EXAMINATION: GENERAL: She is alert, awake and oriented, does not appear in distress at this time. VITAL SIGNS: Pulse of 95 and a blood pressure of 102/50, saturating 98% on 2 liters nasal cannula with a respiratory rate of 16-17, afebrile with a temperature of 36.5. HEENT: Head is normocephalic and atraumatic. Pupils are equal and reactive. There is no throat erythema. There is no thrush in her throat. NECK: Does not show raised JVP, asymmetry, mass or lymph nodes. CHEST: Symmetrical expansion on inspection and palpation. On auscultation, breath sounds are bilaterally equal, but decreased. Expirations are prolonged. There are end-expiratory wheezes noted. HEART: Regular. There is no murmur. ABDOMEN: Soft and nontender. EXTREMITIES: Lower extremities show trace edema bilaterally. There is some bruising on her left leg. LABORATORY DATA: The patient's chest x-rays noted. There are some increase in interstitial markings are more on the left side, but these are more likely to be chronic changes than a new infiltrate. I see similar findings on the patient's previous chest x-rays as well. The patient's CT head as well as carotid artery Dopplers are in [facility] and these are reviewed. The patient's lab work, which does show severe hypokalemia as well as hypomagnesemia in [facility] reviewed. COVID-19 screen was negative. ASSESSMENT AND PLAN: 1. Chronic obstructive pulmonary disease. There are occasional end-expiratory wheezes on her exam; however, I do not get a definite sense that she is in an exacerbation and she does not describe her respiratory symptoms to be significantly worse than her baseline. Therefore, for now, I only ordered nebulized bronchodilators and I ordered one dose of Solu-Medrol depending on her response. If indicated, then a prednisone taper or more Solu-Medrol could be considered tomorrow. The patient may be hypoxemic, while asleep. It will also be possible that she has underlying obstructive sleep apnea, I recommend these be evaluated as an outpatient if not already done. 2. Interstitial infiltrates. There are some interstitial infiltrates noted in the left lung field, but this is not significantly changed compared with the patient's previous chest x-rays, that appears more likely to me that this is secondary to chronic scarring rather than pneumonia. I do not feel that I have enough to start antibiotics at this time; however, I will order a sputum culture in case the patient's respiratory status worsens certainly antibiotics can be considered. 3. Orthostatic hypotension/syncopal episode. Defer management to the [address] [address] CONSULTATION Name: PRICE BENOIT Room: [address] Noelle Cuenca#: [id number] Admission: 01/27/20 Attend Phys: Gautam Arias MD Discharge: Date of : 67 Report #: [id number] service and Cardiology. 4. Severe hypokalemia and hypomagnesemia. Note that the patient is on Florinef long-term, Florinef does drop potassium levels. The patient may therefore benefit from long-term close monitoring of her potassium and magnesium levels and replacement as indicated. 5. Deep vein thrombosis prophylaxis. Suggest considering subcutaneous Lovenox. Thanks for this consultation. By: [id number] 1554Aike Herman MD /nt
[2020-01-27 03:01] LABS: ABSOLUTE LYMPHOCYTES 1.3 thou/uL (0.8-5.3); ABSOLUTE MONOCYTES 0.4 thou/uL (0.0-1.2); BASOPHILS 0.8 %; HEMATOCRIT 41.2 % (37.0-47.0); HEMOGLOBIN 13.9 gm/dL (12.0-15.0); LYMPHOCYTES 26.7 %; MCH 33.7 pg (26.0-34.0); MCHC 33.7 g/dL (28.0-37.0); MONOCYTES 8.6 %; MPV 7.6 fl. (7.2-11.1); NUCLEATED RBCS 0 /100WBC; PLATELET COUNT* 147 thou/uL (150-400); POLYS 62.9 %; RBC 4.12 mil/uL (4.20-5.00); RDW-CV 15.6 % (10.5-14.5); WBC 4.7 thou/uL (4.0-11.0)
[2020-01-27 03:09] LABS: CALCIUM 8.6 mg/dL (8.5-10.1)
[2020-01-27 03:10] LABS: APTT 23.1 Seconds (25.0-31.3); PROTIME 10.6 Seconds (9.20-11.50)
[2020-01-27 03:14] LABS: ALBUMIN 2.8 g/dL (3.4-5.0); TOTAL BILIRUBIN 0.6 mg/dL (<0.1-1.0)
--- NOTE | 2020-01-27 03:52 | NUR ---
PATIENT ABLE TO STAND WITH ASSISTANCE AND TRANSFER TO COMMODE WITH ASSISTANCE
[2020-01-27 03:56] LABS: URINE BILIRUBIN NEGATIVE (Negative); URINE BLOOD NEGATIVE (Negative); URINE CLARITY CLEAR; URINE COLOR YELLOW; URINE GLUCOSE-RANDOM NEGATIVE (Negative); URINE KETONES NEGATIVE (Negative); URINE LEUKOCYTES-REFLEX NEGATIVE (Negative); URINE NITRITE-REFLEX NEGATIVE (Negative); URINE PROTEIN NEGATIVE (Negative)
--- NOTE | 2020-01-27 10:04 | NUR ---
CM SPOKE TO THE PT TO DISCUSS HER HOME SITUATION, DISCHARGE PLANNING, ADN TO INFORM OF THE ROLE OF CM. PT A&O, AND INDEPENDENT WITH ADL'S. PT INFORMS THAT SHE IS LEGALLY BLIND. PT RESIDES AT HOME WITH SPOUSE AND HE DOES ALL COOKING, CLEANING, AND DRIVING. PT HAS 0 HX OF HH OR SNF. PT INFORMS THAT SHE USES 0 DME. HOWEVER REVIEW OD PT'S CHART INFORMS THAT DURING HER PREVIOUS ADMISSION SHE WAS USING A WALKER FOR MOBILITY. PT CURRENTLY ON 2L OXYGEN. PT DOES NOT USE HOME O2. CM RECIEVED CONSULT FOR PLACEMENT FOR THIS PT. CM TO DISCUSS THIS WITH HOSPITALIST WELL NEED FOR PT AND OT EVALS FOR PT. CM WILL REMAIN AVAILABLE TO ASSIST AND FOLLOW NEEDED.
--- NOTE | 2020-01-27 11:30 | NUR ---
ASSUMED CARE OF PATIENT AT THIS TIME. REPORT RECEIVED FROM ET ORTIZ.
[2020-01-27 11:31] LABS: CALCIUM 8.3 mg/dL (8.5-10.1); CREATININE 0.9 mg/dL (0.6-1.3)
[2020-01-27 11:34] LABS: MAGNESIUM 1.7 mg/dL (1.8-2.4); PHOSPHORUS* 2.7 mg/dL (2.5-4.9)
[2020-01-27 11:35] LABS: POTASSIUM 2.8 mmol/L (3.5-5.1)
--- NOTE | 2020-01-27 15:13 | EKG ---
[place] [address] ELECTROCARDIOGRAM REPORT Name: KAYCEEPRICE A Room: [address]#: [id number] Admission: 01/27/20 Attend Phys: Gautam Arias, Discharge: Date of : 67 Date of Service: 01/27/20 0235 Report #: [id number] THIS REPORT FOR: //name// [facility] ED Test Date: 2020-01-27 Test Time: 02:35:03 Pat Name: PRICE BENOIT Department: Room: [facility] Gender: F Crozer Operator: [place] : 1965 Requested By: Dheeraj Gomez Order Number: [id number] MD: Doug King Measurements Intervals [place] Rate: 107 P: 62 NM: 157 QRS: -34 QRSD: 107 T: 81 QT: 360 QTc: 481 Interpretive Statements Sinus tachycardia RSR' in V1 or V2, probably normal variant Inferior infarct, old Baseline wander in lead(s) II,III,aVR,aVL,aVF Compared to ECG 01/05/2020 21:03:01 Myocardial infarct finding now present Left-axis deviation no longer present Electronically Signed On 01-27-2020 15:13:09 CDT by Doug King [email or web address] <ELECTRONICALLY SIGNED> By: Doug King MD, [facility] 01/27/20 1513 4 023 Doug King MD, [facility] /EPI
--- NOTE | 2020-01-27 15:34 | 2DMMODE ---
[place] [address] 2 D/M-MODE ECHOCARDIOGRAM Name: PRICE BENOIT Room: [address] MToyR.#: [id number] Admission: 01/27/20 Attend Phys: Gauatm Arias, Discharge: Date of : 67 Date of Service: 01/27/20 1533 Report #: [id number] THIS REPORT FOR: cc: Summer Alexander,Summer Valerio,Doug Schilling MD [facility] ~ APPROVED REPORT Study performed: 01/27/2020 13:37:57 EXAM: Comprehensive 2D, Doppler, and color-flow Echocardiogram Patient Location: Bedside BSA: 1.85 HR: 94 bpm BP: 160/78 mmHg Other Information Study Quality: Adequate Indications CAD Syncope 2D Dimensions IVSd: 15.75 (7-11mm) LVOT Diam: 20.64 (18-24mm) LVDd: 39.90 mm PWd: 10.73 (7-11mm) Ascending Ao: 28.40 (22-36mm) LVDs: 29.47 (25-40mm) Aortic Root: 22.05 mm Volumes Left Atrial Volume (Systole) LA ESV Index: 17.90 mL/m2 Aortic Valve AoV Peak Tank.: 1.36 m/s AO Peak Gr.: 7.38 mmHg LVOT Max P.22 mmHg AO Mean Gr.: 4.00 mmHg LVOT Mean P.80 mmHg LVOT Max V: 1.14 m/s AO V2 VTI: 23.50 cm LVOT Mean V: 0.79 m/s JACQUELINE (VTI): 3.00 cm2 LVOT V1 VTI: 21.03 [place] [address] 2 D/M-MODE ECHOCARDIOGRAM Name: PRICE BENOIT Room: [address] M.R.#: [id number] Admission: 01/27/20 Attend Phys: Gautam Arias, Discharge: Date of : 67 Date of Service: 01/27/20 1533 Report #: [id number] E/A Ratio: 1.36 MV Decel. Time: 111.88 ms MV E Max Tank.: 0.56 m/s MV PHT: 32.45 ms MVA (PHT): 6.78 cm2 TDI E/Lateral E': 5.60 E/Medial E': 5.60 Medial E' Tank.: 0.10 m/s Lateral E' Tank.: 0.10 m/s Pulmonary Valve PV Peak Tank.: 0.85 m/s PV Peak Gr.: 2.89 mmHg Tricuspid Valve RAP Estimate: 5.00 mmHg TR Peak Gr.: 15.94 mmHg RVSP: 20.94 mmHg PA Pressure: 20.94 mmHg Left Ventricle The left ventricle is normal size. There is normal LV segmental wall motion. There is normal left ventricular wall thickness. Left ventricular systolic function is normal. The left ventricular ejection fraction is within the normal range. LVEF is 60-65%. The left ventricular diastolic function is normal. Right Ventricle The right ventricle is normal size. The right ventricular systolic function is normal. Atria The left atrium size is normal. The right atrium size is normal. Aortic Valve The aortic valve is normal in structure. No aortic regurgitation is present. There is no aortic valvular stenosis. Mitral Valve The mitral valve is normal in structure. There is no mitral valve regurgitation noted. No evidence of mitral valve stenosis. Tricuspid Valve The tricuspid valve is normal in structure. [place] [address] 2 D/M-MODE ECHOCARDIOGRAM Name: PRICE BENOIT [address] [id number] Admission: 01/27/20 Attend Phys: Gautam Arias, Discharge: Date of : 67 Date of Service: 01/27/20 1533 Report #: [id number] Pulmonic Valve The pulmonary valve is normal in structure. There is no pulmonic valvular regurgitation. Great Vessels The aortic root is normal in size. IVC is normal in size and collapses >50% with inspiration. Pericardium There is no pericardial effusion. <Conclusion> The left ventricle is normal size. Left ventricular systolic function is normal. The left ventricular ejection fraction is within the normal range. LVEF is 60-65%. The left ventricular diastolic function is normal. The right ventricle is normal size. The left atrium size is normal. The aortic valve is normal in structure. The mitral valve is normal in structure. The tricuspid valve is normal in structure. IVC is normal in size and collapses >50% with inspiration. There is no pericardial effusion. There is normal LV segmental wall motion. <ELECTRONICALLY SIGNED> By: Doug King MD, FACC 01/27/20 1533 1533 1533 Doug King MD, FACC /INF
--- NOTE | 2020-01-27 18:00 | NUR ---
PATIENT RESTING IN BED. PATIENT IS UP STANDBY ASSIST. PATIENT IS POSITIVE FOR ORTHOSTATIC HYPOTENSION. PATIENT SEEN BY CARDIOLOGY AND PULMONOLOGY TODAY. PATIENT DENIES ANY PAIN. PATIENT IS ON ROOM AIR. BREATHING TREATMENTS STARTED, ONE TIME DOSE SOLUMEDROL GIVEN ORDERED. PATIENT DENIES ANY NEEDS AT THIS TIME. CALL LIGHT WITHIN REACH.
[2020-01-27 20:11] LABS: MAGNESIUM 2.4 mg/dL (1.8-2.4)
[2020-01-27 20:12] LABS: POTASSIUM 5.2 mmol/L (3.5-5.1)
[2020-01-28 00:03] VITALS: BP 100/60
[2020-01-28 02:06] LABS: GLYCOHEMOGLOBIN (HGB A1C) 4.8 % (4.8-5.6)
--- NOTE | 2020-01-28 02:26 | NUR ---
ASSUMED CARE OF PT AT 1900. PT IS ALERT AND ORIENTED. VSS. PERRLA. NO COMPLAINTS OF PAIN. UP WITH 1 ASSIST. PT IS IN SINUS RYTHM ON THE TELEMETRY. PT IS RESTING COMFORTABLY IN BED. RESPIRATIONS ARE EVEN AND NONLABORED. WILL CONTINUE TO MONITOR PT.
[2020-01-28 04:54] VITALS: BP 126/80
[2020-01-28] MEDS ORDERED: FLUDROCORTISON0.1 MG PO ×2 (09:21)
[2020-01-28 11:22] VITALS: BP 126/80
--- NOTE | 2020-01-31 09:39 | NUR ---
PT. DISCHARGED TO FAMILY'S HOUSE ON 01/27 PRIOR TO O.T. EVAL. PLEASE ORDER FURTHER O.T. SERVICES IF NEEDED.
== END 2020-01-28 11:51 | disposition home or self-care (01) ==
LOC: M.ERS 02:30 → M.2W 03:35 → M.TBA-ER 03:35 → M.2W 04:18
PROVIDERS: Family Medicine; Internal Medicine; ADMIT Internal Medicine; ATTEND Internal Medicine
DX: R55 Syncope and collapse (principal); I95.9 Hypotension, unspecified; E11.43 Type 2 diabetes mellitus with diabetic autonomic (poly)neuropathy; R11.10 Vomiting, unspecified; F12.20 Cannabis dependence, uncomplicated; E44.1 Mild protein-calorie malnutrition; J44.9 Chronic obstructive pulmonary disease, unspecified; I25.10 Atherosclerotic heart disease of native coronary artery without angina pectoris; K31.84 Gastroparesis; G62.9 Polyneuropathy, unspecified; F32.9 Major depressive disorder, single episode, unspecified; F41.9 Anxiety disorder, unspecified; G89.29 Other chronic pain; K59.00 Constipation, unspecified; R33.9 Retention of urine, unspecified; I48.91 Unspecified atrial fibrillation; Z79.899 Other long term (current) drug therapy; Z87.891 Personal history of nicotine dependence; Z20.828 Contact with and (suspected) exposure to other viral communicable diseases

== ENCOUNTER 2020-02-24 09:48 | Inpatient (IN) | payer OTHER ==
[~2020-02-24] VITALS: Ht 167.6 cm; Wt 76.7 kg
[2020-02-24 09:51] VITALS: BP 145/83
[2020-02-24 10:38] LABS: ABSOLUTE LYMPHOCYTES 0.9 thou/uL (0.8-5.3); ABSOLUTE MONOCYTES 0.9 thou/uL (0.0-1.2); ABSOLUTE NEUTROPHILS 9.3 thou/uL (1.6-8.1); BASOPHILS 0.4 %; EOSINOPHILS 0.1 %; HEMATOCRIT 36.9 % (37.0-47.0); HEMOGLOBIN 12.5 gm/dL (12.0-15.0); LYMPHOCYTES 7.8 %; MCH 32.8 pg (26.0-34.0); MCHC 33.9 g/dL (28.0-37.0); MCV 96.8 fL (80.0-100.0); MONOCYTES 8.1 %; MPV 8.1 fl. (7.2-11.1); NUCLEATED RBCS 0 /100WBC; PLATELET COUNT* 346 thou/uL (150-400); POLYS 83.6 %; RBC 3.82 mil/uL (4.20-5.00); RDW-CV 14.2 % (10.5-14.5); WBC 11.1 thou/uL (4.0-11.0)
[2020-02-24 10:47] LABS: CALCIUM 9.3 mg/dL (8.5-10.1); CREATININE 0.7 mg/dL (0.6-1.3)
[2020-02-24 10:49] LABS: APTT 24.8 Seconds (25.0-31.3); PROTIME 10.9 Seconds (9.20-11.50)
[2020-02-24 10:58] LABS: ALBUMIN 3.5 g/dL (3.4-5.0); TOTAL BILIRUBIN 0.8 mg/dL (<0.1-1.0); TOTAL PROTEIN 7.2 g/dL (6.4-8.2)
[2020-02-24 12:10] LABS: URINE BLOOD 1+ (Negative); URINE CLARITY CLEAR; URINE COLOR BROWN; URINE GLUCOSE-RANDOM NEGATIVE (Negative); URINE KETONES NEGATIVE (Negative); URINE LEUKOCYTES-REFLEX NEGATIVE (Negative); URINE PROTEIN 2+ (Negative); URINE SPECIFIC GRAVITY >= 1.030 (1.005-1.030)
[2020-02-24 12:12] LABS: URINE BILIRUBIN 2+ (Negative); URINE NITRITE-REFLEX POSITIVE (Negative)
[2020-02-24 12:13] LABS: ICTOTEST (BILI CONFIRMATORY) Negative (Negative)
[2020-02-24 12:15] LABS: SQUAMOUS >10 Many /LPF (0-3)
[2020-02-24 12:16] LABS: URINE WBC-REFLEX None Seen /HPF (0-5)
[2020-02-24 12:17] LABS: BACTERIA-REFLEX >30 Many /HPF (None Seen); CASTS None Seen /LPF (None Seen); CRYSTALS None Seen /LPF (None Seen); MUCUS 0-3 Light strn/LPF (None Seen); URINE RBC 3-10 Few /HPF (0-2)
--- NOTE | 2020-02-24 13:07 | EKG ---
[place] [address] ELECTROCARDIOGRAM REPORT Name: PRICE BENOIT Room: [place] [address] ADM IN [facility]#: [id number] Admission: 02/24/20 Attend Phys: Ed Cannon Discharge: Date of : 67 Date of Service: 02/24/20 1018 Report #: [id number] THIS REPORT FOR: //name// [facility] ED Test Date: 2020-02-24 Test Time: 10:18:26 Pat Name: PRICE BENOIT Department: Room: [facility] Gender: F Cutter Aluminum Sheet: MOUNIKA : 1965 Requested By: Elio Gold Order Number: [id number] MD: Reilly Laughlin Measurements Intervals [place] Rate: 98 P: 59 DC: 158 QRS: -20 QRSD: 104 T: 66 QT: 367 QTc: 469 Interpretive Statements Sinus rhythm Probable left atrial enlargement Borderline left axis deviation RSR' in V1 or V2, right VCD or RVH Baseline wander in lead(s) V2 Compared to ECG 01/27/2020 02:35:03 Sinus tachycardia no longer present Electronically Signed On 02-24-2020 13:07:22 WELDER/INSTALLER by Reilly Laughlin [email or web address] <ELECTRONICALLY SIGNED> By: Reilly Laughlin MD, FACC 02/24/20 1307 1018 1018 Reilly Laughlin MD, [facility] /EPI
[2020-02-24 15:52] VITALS: BP 125/70
[2020-02-24 16:00] VITALS: BP 115/74
[2020-02-24 16:15] VITALS: BP 135/73
[2020-02-24 18:23] LABS: CALCIUM 8.8 mg/dL (8.5-10.1); CREATININE 0.8 mg/dL (0.6-1.3); POTASSIUM 3.3 mmol/L (3.5-5.1)
[2020-02-24 18:26] LABS: MAGNESIUM 1.8 mg/dL (1.8-2.4); PHOSPHORUS* 3.6 mg/dL (2.5-4.9)
[2020-02-24 20:00] VITALS: BP 117/75
[2020-02-25 00:10] VITALS: BP 105/61
[2020-02-25 05:14] VITALS: BP 108/64
[2020-02-25 08:45] VITALS: BP 123/75
[2020-02-25 16:00] VITALS: BP 92/49
[2020-02-25 20:00] VITALS: BP 119/66
[2020-02-26] VITALS: BP 114/67
[2020-02-26 04:30] VITALS: BP 121/75
[2020-02-26 08:00] VITALS: BP 108/56
[2020-02-26] MEDS ORDERED: CELECOXIB100 MG PO (09:41)
[2020-02-26] MEDS ORDERED: HYDROCODON-ACE1 EAC7 PO (09:41)
[2020-02-26] MEDS ORDERED: CIPRO500 MG PO (10:52)
[2020-02-26 11:04] VITALS: BP 108/56
== END 2020-02-26 12:12 | disposition home or self-care (01) | DRG 640 ==
LOC: M.ERS 09:48 → M.TBA-ER 12:37 → M.2W 12:37
PROVIDERS: Emergency Medicine Emergency Medical Services; ADMIT Internal Medicine; ATTEND Internal Medicine
DX: E87.6 Hypokalemia (principal); G93.41 Metabolic encephalopathy; R65.11 Systemic inflammatory response syndrome (SIRS) of non-infectious origin with acute organ dysfunction; N39.0 Urinary tract infection, site not specified; C34.90 Malignant neoplasm of unspecified part of unspecified bronchus or lung; T43.595A Adverse effect of other antipsychotics and neuroleptics, initial encounter; F32.9 Major depressive disorder, single episode, unspecified; F41.1 Generalized anxiety disorder; G47.00 Insomnia, unspecified; I95.1 Orthostatic hypotension; G25.81 Restless legs syndrome; G89.29 Other chronic pain; M54.9 Dorsalgia, unspecified; R31.9 Hematuria, unspecified; G62.9 Polyneuropathy, unspecified; K59.00 Constipation, unspecified; R25.1 Tremor, unspecified; J44.9 Chronic obstructive pulmonary disease, unspecified; Z20.828 Contact with and (suspected) exposure to other viral communicable diseases; Z96.652 Presence of left artificial knee joint; Y92.89 Other specified places as the place of occurrence of the external cause; Z90.710 Acquired absence of both cervix and uterus; Z90.49 Acquired absence of other specified parts of digestive tract; Z79.899 Other long term (current) drug therapy; Z87.891 Personal history of nicotine dependence

== ENCOUNTER 2020-03-02 17:40 | Emergency (ER) | payer OTHER ==
[~2020-03-02] VITALS: Ht 167.6 cm; Wt 79.4 kg
[~2020-03-02 17:40] MED LIST changes: +CELECOXIB100 MG PO; +CIPRO500 MG PO
[2020-03-02 17:42] VITALS: BP 142/88
[2020-03-02 18:06] LABS: HEMATOCRIT 42.3 % (37.0-47.0); HEMOGLOBIN 14.2 gm/dL (12.0-15.0); MCH 32.5 pg (26.0-34.0); MCHC 33.5 g/dL (28.0-37.0); MPV 8.5 fl. (7.2-11.1); NUCLEATED RBCS 0 /100WBC; PLATELET COUNT* 281 thou/uL (150-400); RBC 4.36 mil/uL (4.20-5.00); RDW-CV 13.4 % (10.5-14.5); WBC 15.7 thou/uL (4.0-11.0)
[2020-03-02 18:17] LABS: CALCIUM 9.7 mg/dL (8.5-10.1); POTASSIUM 3.5 mmol/L (3.5-5.1)
[2020-03-02 18:18] LABS: APTT 23.9 Seconds (25.0-31.3); PROTIME 10.9 Seconds (9.20-11.50)
[2020-03-02 18:30] LABS: ALBUMIN 3.7 g/dL (3.4-5.0); TOTAL BILIRUBIN 0.5 mg/dL (<0.1-1.0); TOTAL PROTEIN 7.7 g/dL (6.4-8.2)
[2020-03-02 18:52] VITALS: BP 173/97
[2020-03-02 19:21] LABS: ABSOLUTE LYMPHOCYTES 0.6 thou/uL (0.8-5.3); ABSOLUTE MONOCYTES 0.6 thou/uL (0.0-1.2); ABSOLUTE NEUTROPHILS 14.4 thou/uL (1.6-8.1); PLATELET ESTIMATE ADEQUATE
--- NOTE | 2020-03-03 12:45 | EKG ---
[place] [address] ELECTROCARDIOGRAM REPORT Name: PRICE BENOIT Room: [facility]#: [id number] Admission: 03/02/20 Attend Phys: Discharge: 03/02/20 Date of : 67 Date of Service: 03/02/2018[address] Report #: [id number] THIS REPORT FOR: //name// [facility] ED Test Date: 2020-03-02 Test Time: 18:11:15 Pat Name: PRICE BENOIT Department: Room: [facility] Gender: F Bakery Technician: [place] : 1965 Requested By: Dheeraj Gomez Order Number: [id number] MD: Jacky Rosenberg Measurements Intervals [place] Rate: 120 P: 63 SD: 153 QRS: -33 QRSD: 97 T: 86 QT: 318 QTc: 450 Interpretive Statements Sinus tachycardia Left axis deviation RSR' in V1 or V2, right VCD or RVH Baseline wander in lead(s) II,III,aVL,aVF,V1,V2,V3 Compared to ECG 02/24/2020 10:18:26 Sinus rhythm no longer present Electronically Signed On 03-03-2020 12:45:45 HARP MAKER by Jacky Rosenberg [email or web address] <ELECTRONICALLY SIGNED> By: Jacky Rosenberg MD, FACC 03/03/20 1245 10 10 Jacky Rosenberg MD, FACC /EPI
== END 2020-03-02 18:52 | disposition home or self-care (01) ==
LOC: M.ERS 17:40 → M.TBA-ER 18:31 → M.ERS 18:31
PROVIDERS: Family Medicine
DX: F41.9 Anxiety disorder, unspecified (principal); R11.2 Nausea with vomiting, unspecified; R06.00 Dyspnea, unspecified; G25.81 Restless legs syndrome; J44.9 Chronic obstructive pulmonary disease, unspecified; G89.29 Other chronic pain; G62.9 Polyneuropathy, unspecified; Z90.710 Acquired absence of both cervix and uterus; Z90.49 Acquired absence of other specified parts of digestive tract; Z98.51 Tubal ligation status; Z85.118 Personal history of other malignant neoplasm of bronchus and lung; Z96.652 Presence of left artificial knee joint

== ENCOUNTER 2020-03-25 07:48 | Emergency (ER) | payer OTHER ==
[~2020-03-25] VITALS: Ht 167.6 cm; Wt 59.0 kg
[2020-03-25 08:55] LABS: HEMATOCRIT 40.2 % (37.0-47.0); HEMOGLOBIN 13.6 gm/dL (12.0-15.0); MCH 31.7 pg (26.0-34.0); MCHC 33.9 g/dL (28.0-37.0); MCV 93.7 fL (80.0-100.0); MPV 7.9 fl. (7.2-11.1); NUCLEATED RBCS 0 /100WBC; PLATELET COUNT* 225 thou/uL (150-400); RBC 4.29 mil/uL (4.20-5.00); WBC 5.9 thou/uL (4.0-11.0)
[2020-03-25 09:01] LABS: CALCIUM 8.9 mg/dL (8.5-10.1); CREATININE 0.8 mg/dL (0.6-1.3)
[2020-03-25 09:06] LABS: ALBUMIN 3.4 g/dL (3.4-5.0); POTASSIUM 2.9 mmol/L (3.5-5.1); TOTAL BILIRUBIN 0.5 mg/dL (<0.1-1.0); TOTAL PROTEIN 7.1 g/dL (6.4-8.2)
[2020-03-25 09:40] LABS: URINE BLOOD 2+ (Negative); URINE CLARITY SL CLOUDY; URINE COLOR DARK YELLOW; URINE GLUCOSE-RANDOM NEGATIVE (Negative); URINE KETONES TRACE (Negative); URINE LEUKOCYTES-REFLEX NEGATIVE (Negative); URINE NITRITE-REFLEX NEGATIVE (Negative); URINE PROTEIN 2+ (Negative); URINE SPECIFIC GRAVITY >= 1.030 (1.005-1.030); URINE UROBILINOGEN 0.2 E.U./dl (0.2-1.0)
[2020-03-25 09:56] LABS: ICTOTEST (BILI CONFIRMATORY) Positive (Negative); URINE BILIRUBIN 1+ (Negative)
[2020-03-25 10:04] LABS: ABSOLUTE LYMPHOCYTES 0.6 thou/uL (0.8-5.3); ABSOLUTE NEUTROPHILS 5.3 thou/uL (1.6-8.1); PLATELET ESTIMATE ADEQUATE
[2020-03-25 10:15] LABS: BACTERIA-REFLEX 1-9 Few /HPF (None Seen); CASTS None Seen /LPF (None Seen); CRYSTALS None Seen /LPF (None Seen); MUCUS None Seen strn/LPF (None Seen); SQUAMOUS 4-10 Moderate /LPF (0-3); URINE WBC-REFLEX 0-5 Rare /HPF (0-5)
[2020-03-25 10:20] LABS: AMP/METHAMP Negative (Negative); BARBITURATES Negative (Negative); BENZODIAZEPINES Negative (Negative); COCAINE Negative (Negative); METHADONE Negative (Negative); OPIATES Negative (Negative); PCP Negative (Negative); THC POSITIVE (Negative)
[2020-03-25] MEDS ORDERED: PROMS25 WY RECTAL (11:33)
[2020-03-25] MEDS ORDERED: PHENERGAN 25 MG25 M1 PO (11:33)
[2020-03-25 11:45] VITALS: BP 168/101
== END 2020-03-25 11:45 | disposition home or self-care (01) ==
LOC: M.ERS 07:48
PROVIDERS: Personal Emergency Response Attendant
DX: R11.2 Nausea with vomiting, unspecified (principal); Z20.828 Contact with and (suspected) exposure to other viral communicable diseases; G25.81 Restless legs syndrome; G62.9 Polyneuropathy, unspecified; J44.9 Chronic obstructive pulmonary disease, unspecified; Z90.710 Acquired absence of both cervix and uterus; Z90.49 Acquired absence of other specified parts of digestive tract; Z98.51 Tubal ligation status; Z85.118 Personal history of other malignant neoplasm of bronchus and lung; Z96.652 Presence of left artificial knee joint; Z79.899 Other long term (current) drug therapy

== ENCOUNTER 2020-04-25 10:07 | Inpatient (IN) | payer OTHER ==
[~2020-04-25] VITALS: Ht 167.6 cm; Wt 72.6 kg
--- NOTE | ~2020-04-25 | PROC ---
[address] [address] PROCEDURE REPORT Name: PRICE BENOIT Room: [address] IN M.R.#: [id number] Admission: 04/25/20 Attend Phys: Gautam Arias MD Discharge: 04/29/20 Date of : 67 Report #: [id number] THIS REPORT FOR: cc: Summer Alexander Anna S. DO ~ [facility],Medical Records Staff For GI report, please see the Provation report in Perceptive 7 content. By: [id number] Records Staff [facility] /[place]
[~2020-04-25 10:07] MED LIST changes: +PROMS25 WY RECTAL
[2020-04-25 10:17] VITALS: BP 161/102
[2020-04-25 10:32] LABS: HEMATOCRIT 46.7 % (37.0-47.0); HEMOGLOBIN 15.8 gm/dL (12.0-15.0); MCH 31.4 pg (26.0-34.0); MCHC 33.8 g/dL (28.0-37.0); MPV 7.9 fl. (7.2-11.1); NUCLEATED RBCS 0 /100WBC; PLATELET COUNT* 286 thou/uL (150-400); RBC 5.02 mil/uL (4.20-5.00); WBC 9.7 thou/uL (4.0-11.0)
[2020-04-25 10:40] LABS: CALCIUM 10.6 mg/dL (8.5-10.1); CREATININE 1.2 mg/dL (0.6-1.3); POTASSIUM 3.7 mmol/L (3.5-5.1)
[2020-04-25 10:44] LABS: ALBUMIN 4.2 g/dL (3.4-5.0); TOTAL BILIRUBIN 0.4 mg/dL (<0.1-1.0); TOTAL PROTEIN 8.5 g/dL (6.4-8.2)
[2020-04-25 10:54] LABS: ABSOLUTE LYMPHOCYTES 0.9 thou/uL (0.8-5.3); ABSOLUTE MONOCYTES 0.2 thou/uL (0.0-1.2); ABSOLUTE NEUTROPHILS 8.6 thou/uL (1.6-8.1); PLATELET ESTIMATE ADEQUATE
[2020-04-25 10:55] LABS: ANISOCYTOSIS 1+; POIKILOCYTOSIS 1+
[2020-04-25 11:23] LABS: URINE BLOOD 3+ (Negative); URINE CLARITY CLEAR; URINE COLOR DARK YELLOW; URINE GLUCOSE-RANDOM NEGATIVE (Negative); URINE KETONES TRACE (Negative); URINE LEUKOCYTES-REFLEX NEGATIVE (Negative); URINE NITRITE-REFLEX NEGATIVE (Negative); URINE PROTEIN 3+ (Negative); URINE SPECIFIC GRAVITY 1.025 (1.005-1.030)
[2020-04-25 11:31] LABS: ICTOTEST (BILI CONFIRMATORY) Negative (Negative); URINE BILIRUBIN 1+ (Negative)
[2020-04-25 11:34] LABS: BACTERIA-REFLEX 1-9 Few /HPF (None Seen); HYALINE CASTS 0-3 Few /LPF (None Seen); MUCUS >6 Heavy strn/LPF (None Seen); SQUAMOUS 0-3 Few /LPF (0-3); URINE RBC 3-10 Few /HPF (0-2); URINE WBC-REFLEX 0-5 Rare /HPF (0-5)
[2020-04-25 11:35] LABS: CRYSTALS None Seen /LPF (None Seen)
[2020-04-25 13:30] LABS: CALCIUM 9.1 mg/dL (8.5-10.1); CREATININE 1.9 mg/dL (0.6-1.3); POTASSIUM 4.3 mmol/L (3.5-5.1)
[2020-04-25 13:33] LABS: MAGNESIUM 2.4 mg/dL (1.8-2.4); PHOSPHORUS* 3.9 mg/dL (2.5-4.9)
--- NOTE | 2020-04-25 15:53 | EKG ---
[place] [address] ELECTROCARDIOGRAM REPORT Name: PRICE BENOIT Room: [place] [address] ADM IN [facility]#: [id number] Admission: 04/25/20 Attend Phys: Gautam Arias, Discharge: Date of : 67 Date of Service: 04/25/20 1047 Report #: [id number] THIS REPORT FOR: //name// [facility] ED Test Date: 2020-04-25 Test Time: 10:47:24 Pat Name: PRICE BENOIT Department: Room: [facility] Gender: F Inspector Watch Train: : 1965 Requested By: Elio Gold Order Number: [id number] MD: Reilly Laughlin Measurements Intervals [place] Rate: 133 P: -20 SC: 127 QRS: -90 QRSD: 162 T: 67 QT: 388 QTc: 578 Interpretive Statements Sinus tachycardia early transition Nonspecific IVCD with LAD Inferior infarct, old Lateral infarct, old Baseline wander in lead(s) I,II,III,aVL,aVF,V1,V2,V5,V6 Compared to ECG 03/02/2020 18:11:15 Intraventricular conduction delay now present Myocardial infarct finding now present Electronically Signed On 04-25-2020 15:53:35 HEAD OF ACQUISITIONS by Reilly Laughlin [email or web address] <ELECTRONICALLY SIGNED> By: Reilly Laughlin MD, [facility] 04/25/20 1553 1047 1047 Reilly Laughlin MD, [facility] /EPI
[2020-04-25 17:00] VITALS: BP 134/85
[2020-04-25 20:00] VITALS: BP 136/80; BP 160/94
[2020-04-26 00:20] VITALS: BP 146/89
[2020-04-26 04:08] LABS: HEMATOCRIT 39.4 % (37.0-47.0); MCH 31.4 pg (26.0-34.0); MCHC 33.8 g/dL (28.0-37.0); MCV 93.1 fL (80.0-100.0); RBC 4.23 mil/uL (4.20-5.00); RDW-CV 13.8 % (10.5-14.5); WBC 10.1 thou/uL (4.0-11.0)
[2020-04-26 04:24] LABS: HEMOGLOBIN 13.3 gm/dL (12.0-15.0)
[2020-04-26 04:27] LABS: CALCIUM 9.3 mg/dL (8.5-10.1); POTASSIUM 3.6 mmol/L (3.5-5.1)
[2020-04-26 04:32] VITALS: BP 154/92
[2020-04-26 04:32] LABS: ALBUMIN 3.4 g/dL (3.4-5.0); CREATININE 0.8 mg/dL (0.6-1.3); MAGNESIUM 1.8 mg/dL (1.8-2.4); TOTAL BILIRUBIN 0.4 mg/dL (<0.1-1.0); TOTAL PROTEIN 6.8 g/dL (6.4-8.2)
[2020-04-26 07:30] VITALS: BP 151/100
--- NOTE | 2020-04-26 07:39 | NUR ---
PT ADMITTED TO RN 210 @ ABOUT 1999. ALERT AND ORIENTED. VSS ON RA. PT ORIENTED TO RM AND CALL LIGHT. PT VERY ANXIOUS. VOICED BEING BIPOLAR. RLS. HOME MED RECONCILED. PT NPO. PT WANTED HER PO SEROQUEL. DR WEINSTEIN VOICED NOT BEING ABLE TO ORDER SEROQUEL PT HAS GASTRIC OBSTRUCTION. IV ATIVAN AND BENADRYL GIVEN THIS SHIFT. PRN IV PAIN MED ALSO GIVEN THIS SHIFT FOR LOWER BACK PAIN. PT HAS NEUROSTIMULATOR FOR HER BACK PAIN WHICH SHE VOICED DOES NOT WORK. PT CALLED OUT ALMOST CONSTANTLY TO HAVE A BM BUT NEVER HAD ANY. ALONSO IN PLACE FOR VOIDING. FALL PRECAUTION IN PLACE. CALL LIGHT WITHIN REACH. HOURLY ROUNDINGS MADE. GI CONSULT. WILL CONTINUE TO MONITOR.
[2020-04-26 12:27] VITALS: BP 146/102
--- NOTE | 2020-04-26 12:48 | NUR ---
Pt is A&O. Resides at home with her . assists with ADLs and completes IADLs. Pt states that she primarily uses a wc for mobility, has a walker, but states that when she stands her BP drops and she passes out. No home o2. No hx of HH or SNF. Goal is home at dc. Pt to have gastric emptying test today. Anticipate dc in a few days. No needs anticipated, Pt declined HH.
[2020-04-26 16:37] LABS: AMP/METHAMP Negative (Negative); BARBITURATES Negative (Negative); BENZODIAZEPINES Negative (Negative); COCAINE Negative (Negative); METHADONE Negative (Negative); OPIATES Negative (Negative); PCP Negative (Negative); THC POSITIVE (Negative)
[2020-04-26 16:43] VITALS: BP 165/88
[2020-04-26 20:00] VITALS: BP 152/96
[2020-04-27] VITALS: BP 165/97
[2020-04-27 03:58] LABS: ABSOLUTE LYMPHOCYTES 0.9 thou/uL (0.8-5.3); ABSOLUTE MONOCYTES 0.4 thou/uL (0.0-1.2); ABSOLUTE NEUTROPHILS 4.1 thou/uL (1.6-8.1); BASOPHILS 0.4 %; EOSINOPHILS 0.1 %; HEMATOCRIT 40.4 % (37.0-47.0); HEMOGLOBIN 13.7 gm/dL (12.0-15.0); LYMPHOCYTES 15.8 %; MCH 31.4 pg (26.0-34.0); MCHC 33.9 g/dL (28.0-37.0); MCV 92.6 fL (80.0-100.0); MONOCYTES 7.1 %; MPV 7.9 fl. (7.2-11.1); NUCLEATED RBCS 0 /100WBC; PLATELET COUNT* 215 thou/uL (150-400); POLYS 76.6 %; RBC 4.36 mil/uL (4.20-5.00); RDW-CV 14.1 % (10.5-14.5); WBC 5.4 thou/uL (4.0-11.0)
[2020-04-27 04:00] VITALS: BP 169/98
[2020-04-27 04:22] LABS: ALBUMIN 3.4 g/dL (3.4-5.0); CALCIUM 9.2 mg/dL (8.5-10.1); CREATININE 0.8 mg/dL (0.6-1.3); POTASSIUM 3.8 mmol/L (3.5-5.1); TOTAL BILIRUBIN 0.5 mg/dL (<0.1-1.0); TOTAL PROTEIN 6.8 g/dL (6.4-8.2)
--- NOTE | 2020-04-27 04:45 | NUR ---
ASSUMED PT CARE AT 1915. NURSING ASSESSMENT COMPLETED AT START OF SHIFT. PT ANXIOUS AND RESTLESS THIS SHIFT. C/O ABDOMINAL AND BACK PAIN THROUGHOUT SHIFT. C/O NAUSEA. PRN MEDS ADMINISTERED. SEE EMAR FOR DOCUMENTATION. NPO AFTER MIDNIGHT FOR GASTRIC EMPTYING TEST. SR ON ENGINEERING PRODUCTION LIAISON. HIGH FALL PRECAUTIONS IN PLACE. CALL LIGHT WITHIN REACH.
[2020-04-27 08:00] VITALS: BP 166/102
[2020-04-27] MEDS ORDERED: REGLAN10 MG PO (08:51)
[2020-04-27] MEDS ORDERED: ZOFRAN ODT4 MG PO (08:52)
[2020-04-27 14:00] VITALS: BP 131/82
[2020-04-27 21:00] VITALS: BP 160/97
[2020-04-28 00:23] VITALS: BP 114/74
--- NOTE | 2020-04-28 05:28 | NUR ---
Pt still complains of intermittent abdominal pain rated 8-9. Pt given fentanyl 25mcg x3 this shift with partial relief. Pt also had 1 episode of nausea, given x1 zofran with relief. Pt urban cath intact. Pt call light within reach, safety precaution in placed.
[2020-04-28 07:48] LABS: ABSOLUTE EOSINOPHILS 0.1 thou/uL (0.0-0.7); ABSOLUTE LYMPHOCYTES 1.7 thou/uL (0.8-5.3); ABSOLUTE MONOCYTES 0.4 thou/uL (0.0-1.2); ABSOLUTE NEUTROPHILS 2.4 thou/uL (1.6-8.1); BASOPHILS 1.1 %; EOSINOPHILS 1.5 %; HEMATOCRIT 36.4 % (37.0-47.0); HEMOGLOBIN 12.2 gm/dL (12.0-15.0); LYMPHOCYTES 37.2 %; MCH 30.9 pg (26.0-34.0); MCHC 33.6 g/dL (28.0-37.0); MCV 92.1 fL (80.0-100.0); MONOCYTES 9.1 %; MPV 8.1 fl. (7.2-11.1); NUCLEATED RBCS 0 /100WBC; PLATELET COUNT* 190 thou/uL (150-400); POLYS 51.1 %; RBC 3.96 mil/uL (4.20-5.00); RDW-CV 14.1 % (10.5-14.5); WBC 4.7 thou/uL (4.0-11.0)
[2020-04-28 07:53] LABS: CALCIUM 8.6 mg/dL (8.5-10.1); CREATININE 0.9 mg/dL (0.6-1.3); POTASSIUM 3.3 mmol/L (3.5-5.1)
[2020-04-28 08:00] VITALS: BP 147/87
[2020-04-28 15:30] VITALS: BP 132/52
--- NOTE | 2020-04-28 19:48 | NUR ---
ASSUMED CARE OF PATIENT THIS AM AT 0730. PATIENT IS ALERT AND ORIENTED X 4. SHE C/O ABD PAIN AND BACK PAIN THIS AM. PATIENT KEPT NPO FOR EGD THIS AM. CONSENT SIGNED AND PATIENT TAKEN TO PACU FOR PROCEDURE PER W/C. PATIENT RETURNED TO THE ROOM PER W/C IN THE AFTERNOON. PATIENT WAS MEDICATED FOR PAIN AGAIN THIS AFTERNOON AND EVENING. SHE NOW DENIES NAUSEA. ALONSO CATH DISCONTINUED THIS AM PER ORDER. PATIENT ASSISTED TO THE BSC THROUGHOUT THE DAY. NO FALLS OR INJURY. SHE IS TOLERATING HER MEALS WITHOUT DIFFICULTY.
[2020-04-28 23:56] VITALS: BP 100/60
[2020-04-29 04:30] LABS: CALCIUM 8.9 mg/dL (8.5-10.1); CREATININE 0.9 mg/dL (0.6-1.3); MAGNESIUM 2.1 mg/dL (1.8-2.4); POTASSIUM 3.2 mmol/L (3.5-5.1)
--- NOTE | 2020-04-29 07:39 | NUR ---
ASSUMED PT'S CARE @ ABOUT 1900. ALERT AND ORIENTED. VSS ON RA. MEDS GIVEN PER EMAR. PT SLEPT WELL THIS SHIFT. PAIN MED GIVEN PER EMAR. FALL PRECAUTION IN PLACE. CALL LIGHT WITHIN REACH. HOURLY ROUNDINGS MADE. WILL CONTINUE TO MONITOR.
[2020-04-29 08:00] VITALS: BP 137/84
[2020-04-29] MEDS ORDERED: REGLAN 5 MG TAB5 MG PO (08:30)
--- NOTE | 2020-04-29 14:41 | NUR ---
ASSUMED CARE OF PATIENT THIS AM AT 0730. PATIENT IS ALERT AND ORIENTED X 4. SHE C/O CONTINUED ABD AND BACK PAIN. PATIENT MEDICATED WITH PO TYLENOL. DR IN TO ROUND AND DISCHARGE ORDERS WERE WRITTEN. PATIENT IS TO DISCHARGE TODAY. POTASSIUM LEVEL WAS LOW. K+ REPLACEMENT GIVEN. PATIENT EDUCATED ON DISCHARGE PROCEDURE. ASSISTED WITH ADLS THROUGHOUT THE DAY. NO FALLS OR INJURY.
[2020-04-29 14:48] VITALS: BP 137/84
[2020-05-02] MEDS ORDERED: PROMS25 WY RECTAL (06:00)
== END 2020-04-29 15:45 | disposition home or self-care (01) | DRG 391 ==
LOC: M.ERS 10:07 → M.TBA-ER 13:06 → M.2W 13:06
PROVIDERS: Emergency Medicine Emergency Medical Services; Internal Medicine; Internal Medicine Gastroenterology; ADMIT Internal Medicine; ATTEND Internal Medicine
PROC: 0DJ08ZZ Inspection of Upper Intestinal Tract, Via Natural or Artificial Opening Endoscopic (ICD-10-PCS; principal; 2020-04-28)
DX: K31.84 Gastroparesis (principal); N17.0 Acute kidney failure with tubular necrosis; K31.1 Adult hypertrophic pyloric stenosis; D75.1 Secondary polycythemia; F32.9 Major depressive disorder, single episode, unspecified; F41.9 Anxiety disorder, unspecified; G62.9 Polyneuropathy, unspecified; J44.9 Chronic obstructive pulmonary disease, unspecified; G89.29 Other chronic pain; G25.81 Restless legs syndrome; F41.1 Generalized anxiety disorder; G47.00 Insomnia, unspecified; Z96.652 Presence of left artificial knee joint; R33.9 Retention of urine, unspecified; E86.9 Volume depletion, unspecified; F12.90 Cannabis use, unspecified, uncomplicated; Z20.822 Contact with and (suspected) exposure to COVID-19; E83.52 Hypercalcemia; K44.9 Diaphragmatic hernia without obstruction or gangrene; Z79.899 Other long term (current) drug therapy; Z90.710 Acquired absence of both cervix and uterus; Z90.49 Acquired absence of other specified parts of digestive tract; Z85.118 Personal history of other malignant neoplasm of bronchus and lung; Z87.891 Personal history of nicotine dependence

== ENCOUNTER 2020-05-02 04:48 | Emergency (ER) | payer OTHER ==
[~2020-05-02] VITALS: Ht 167.6 cm; Wt 72.6 kg
[~2020-05-02 04:48] MED LIST changes: +REGLAN 5 MG TAB5 MG PO; +REGLAN10 MG PO; +ZOFRAN ODT4 MG PO
[2020-05-02 05:19] LABS: HEMATOCRIT 45.9 % (37.0-47.0); HEMOGLOBIN 15.1 gm/dL (12.0-15.0); MCH 30.6 pg (26.0-34.0); MCHC 32.9 g/dL (28.0-37.0); MCV 93.2 fL (80.0-100.0); MPV 8.2 fl. (7.2-11.1); RBC 4.92 mil/uL (4.20-5.00); RDW-CV 14.6 % (10.5-14.5); WBC 6.5 thou/uL (4.0-11.0)
[2020-05-02 05:21] LABS: CALCIUM 9.3 mg/dL (8.5-10.1); POTASSIUM 3.8 mmol/L (3.5-5.1)
[2020-05-02 05:26] LABS: ALBUMIN 3.7 g/dL (3.4-5.0); TOTAL BILIRUBIN 0.3 mg/dL (<0.1-1.0); TOTAL PROTEIN 7.1 g/dL (6.4-8.2)
[2020-05-02 05:35] LABS: URINE BILIRUBIN NEGATIVE (Negative); URINE BLOOD 1+ (Negative); URINE CLARITY CLEAR; URINE COLOR YELLOW; URINE GLUCOSE-RANDOM NEGATIVE (Negative); URINE KETONES NEGATIVE (Negative); URINE LEUKOCYTES-REFLEX NEGATIVE (Negative); URINE NITRITE-REFLEX NEGATIVE (Negative); URINE PROTEIN NEGATIVE (Negative); URINE SPECIFIC GRAVITY 1.025 (1.005-1.030); URINE UROBILINOGEN 0.2 E.U./dl (0.2-1.0)
[2020-05-02 05:42] LABS: AMP/METHAMP Negative (Negative); BARBITURATES Negative (Negative); BENZODIAZEPINES Negative (Negative); COCAINE Negative (Negative); METHADONE Negative (Negative); OPIATES Negative (Negative); PCP Negative (Negative); THC POSITIVE (Negative)
[2020-05-02 05:50] LABS: BACTERIA-REFLEX 1-9 Few /HPF (None Seen); SQUAMOUS 4-10 Moderate /LPF (0-3); URINE RBC 3-10 Few /HPF (0-2); URINE WBC-REFLEX 0-5 Rare /HPF (0-5)
[2020-05-02 05:51] LABS: CASTS None Seen /LPF (None Seen); CRYSTALS None Seen /LPF (None Seen); MUCUS 0-3 Light strn/LPF (None Seen)
[2020-05-02] MEDS ORDERED: PROMS25 WY RECTAL ×2 (06:00)
[2020-05-02 06:49] VITALS: BP 172/99
[2020-05-03] MEDS ORDERED: PROMS25 WY RECTAL (17:12)
[2020-05-03] MEDS ORDERED: ROXICODONE5 M2 PO (17:12)
== END 2020-05-02 06:49 | disposition home or self-care (01) ==
LOC: M.ERS 04:48
PROVIDERS: Personal Emergency Response Attendant
DX: R11.2 Nausea with vomiting, unspecified (principal); G89.29 Other chronic pain; R10.84 Generalized abdominal pain; J44.9 Chronic obstructive pulmonary disease, unspecified; Z90.49 Acquired absence of other specified parts of digestive tract; Z90.710 Acquired absence of both cervix and uterus; Z79.899 Other long term (current) drug therapy

== ENCOUNTER 2020-05-02 13:41 | Emergency (ER) | payer OTHER ==
[~2020-05-02] VITALS: Ht 167.6 cm; Wt 73.9 kg
[2020-05-02 14:42] LABS: ABSOLUTE LYMPHOCYTES 0.8 thou/uL (0.8-5.3); ABSOLUTE MONOCYTES 0.4 thou/uL (0.0-1.2); ABSOLUTE NEUTROPHILS 6.4 thou/uL (1.6-8.1); BASOPHILS 0.5 %; EOSINOPHILS 0.1 %; HEMATOCRIT 42.5 % (37.0-47.0); HEMOGLOBIN 14.2 gm/dL (12.0-15.0); LYMPHOCYTES 10.6 %; MCHC 33.5 g/dL (28.0-37.0); MCV 92.7 fL (80.0-100.0); MONOCYTES 5.4 %; NUCLEATED RBCS 0 /100WBC; PLATELET COUNT* 257 thou/uL (150-400); POLYS 83.4 %; RBC 4.58 mil/uL (4.20-5.00); RDW-CV 14.2 % (10.5-14.5); WBC 7.7 thou/uL (4.0-11.0)
[2020-05-02 14:49] LABS: CALCIUM 9.4 mg/dL (8.5-10.1); POTASSIUM 3.9 mmol/L (3.5-5.1)
[2020-05-02 14:53] LABS: ALBUMIN 3.6 g/dL (3.4-5.0); TOTAL BILIRUBIN 0.3 mg/dL (<0.1-1.0); TOTAL PROTEIN 7.1 g/dL (6.4-8.2)
[2020-05-02 16:12] VITALS: BP 159/99
--- NOTE | 2020-05-03 15:57 | EKG ---
[place] [address] ELECTROCARDIOGRAM REPORT Name: PRICE BENOIT Nikos Room: [facility]#: [id number] Admission: 05/02/20 Attend Phys: Discharge: 05/02/20 Date of : 67 Date of Service: 05/02/20 1436 Report #: [id number] THIS REPORT FOR: //name// [facility] ED Test Date: 2020-05-02 Test Time: 14:36:15 Pat Name: PRICE BENOIT Department: Room: Gender: Radio Personality: LEVI : 1965 Requested By: Airam Singer Order Number: [id number] MD: Jacky Rosenberg Measurements Intervals [place] Rate: 103 P: [place]: QRS: -28 QRSD: 91 T: 47 QT: 369 QTc: 483 Interpretive Statements Sinus tachycardia Left atrial enlargement, possible Borderline left axis deviation Abnormal R-wave progression, early transition Artifact in lead(s) I,II,III,aVR,aVL,aVF Compared to ECG 04/25/2020 10:47:24 Intraventricular conduction delay no longer present Myocardial infarct finding no longer present Electronically Signed On 05-03-2020 15:57:19 TEST SPECIALIST by Jacky Rosenberg [email or web address] <ELECTRONICALLY SIGNED> By: Jacky Rosenberg MD, FAC 05/03/20 1557 1436 1436 Jacky Rosenberg MD, [facility] /EPI
[2020-05-03] MEDS ORDERED: PROMS25 WY RECTAL (17:12)
[2020-05-03] MEDS ORDERED: ROXICODONE5 M2 PO (17:12)
== END 2020-05-02 16:13 | disposition home or self-care (01) ==
LOC: M.ERS 13:41
PROVIDERS: Nurse Practitioner Family
DX: R11.15 Cyclical vomiting syndrome unrelated to migraine (principal); K31.84 Gastroparesis; J44.9 Chronic obstructive pulmonary disease, unspecified; Z90.49 Acquired absence of other specified parts of digestive tract; Z90.710 Acquired absence of both cervix and uterus; Z79.899 Other long term (current) drug therapy

== ENCOUNTER 2020-05-03 16:56 | Emergency (ER) | payer OTHER ==
[~2020-05-03] VITALS: Ht 167.6 cm; Wt 73.9 kg
[2020-05-03 17:02] VITALS: BP 178/144
[2020-05-03] MEDS ORDERED: ROXICODONE5 M2 PO (17:12)
[2020-05-03] MEDS ORDERED: PROMS25 WY RECTAL (17:12)
== END 2020-05-03 17:23 | disposition home or self-care (01) ==
LOC: M.ERS 16:56
DX: R11.2 Nausea with vomiting, unspecified (principal); J44.9 Chronic obstructive pulmonary disease, unspecified; G25.81 Restless legs syndrome; G62.9 Polyneuropathy, unspecified; K31.84 Gastroparesis; Z90.710 Acquired absence of both cervix and uterus; Z90.49 Acquired absence of other specified parts of digestive tract; Z96.652 Presence of left artificial knee joint; Z85.118 Personal history of other malignant neoplasm of bronchus and lung

== ENCOUNTER 2020-05-05 12:03 | Emergency (ER) | payer OTHER ==
[~2020-05-05] VITALS: Ht 167.6 cm; Wt 70.8 kg
[~2020-05-05 12:03] MED LIST changes: +ROXICODONE5 M2 PO
[2020-05-05 12:52] LABS: ABSOLUTE EOSINOPHILS 0.1 thou/uL (0.0-0.7); ABSOLUTE LYMPHOCYTES 0.8 thou/uL (0.8-5.3); ABSOLUTE MONOCYTES 0.3 thou/uL (0.0-1.2); ABSOLUTE NEUTROPHILS 4.5 thou/uL (1.6-8.1); BASOPHILS 0.8 %; EOSINOPHILS 1.5 %; HEMATOCRIT 42.8 % (37.0-47.0); HEMOGLOBIN 14.3 gm/dL (12.0-15.0); LYMPHOCYTES 14.2 %; MCH 31.1 pg (26.0-34.0); MCHC 33.5 g/dL (28.0-37.0); MCV 92.8 fL (80.0-100.0); MONOCYTES 5.9 %; MPV 7.4 fl. (7.2-11.1); NUCLEATED RBCS 0 /100WBC; PLATELET COUNT* 206 thou/uL (150-400); POLYS 77.6 %; RBC 4.61 mil/uL (4.20-5.00); RDW-CV 14.2 % (10.5-14.5); WBC 5.8 thou/uL (4.0-11.0)
[2020-05-05 12:59] LABS: CALCIUM 9.2 mg/dL (8.5-10.1); CREATININE 1.1 mg/dL (0.6-1.3); POTASSIUM 3.5 mmol/L (3.5-5.1)
[2020-05-05 13:03] LABS: ALBUMIN 3.5 g/dL (3.4-5.0); TOTAL PROTEIN 6.9 g/dL (6.4-8.2)
[2020-05-05 14:26] LABS: ICTOTEST (BILI CONFIRMATORY) Negative (Negative); URINE BILIRUBIN 1+ (Negative); URINE BLOOD NEGATIVE (Negative); URINE CLARITY CLEAR; URINE COLOR YELLOW; URINE GLUCOSE-RANDOM NEGATIVE (Negative); URINE KETONES NEGATIVE (Negative); URINE LEUKOCYTES-REFLEX NEGATIVE (Negative); URINE NITRITE-REFLEX NEGATIVE (Negative); URINE PROTEIN NEGATIVE (Negative)
[2020-05-05 14:34] LABS: AMP/METHAMP Negative (Negative); BARBITURATES Negative (Negative); BENZODIAZEPINES Negative (Negative); COCAINE Negative (Negative); METHADONE Negative (Negative); OPIATES Negative (Negative); PCP Negative (Negative); THC POSITIVE (Negative)
[2020-05-05 15:48] VITALS: BP 155/89
--- NOTE | 2020-05-07 13:21 | EKG ---
[place] [address] ELECTROCARDIOGRAM REPORT Name: PRICE BENOIT Room: [facility]#: [id number] Admission: 05/05/20 Attend Phys: Discharge: 05/05/20 Date of : 67 Date of Service: 05/05/20 1219 Report #: [id number] THIS REPORT FOR: //name// [facility] ED Test Date: 2020-05-05 Test Time: 12:19:04 Pat Name: PRICE BENOIT Department: Room: Gender: Substitute Nurse: ARCHIE : 1965 Requested By: Cheryl Mcclellan Order Number: [id number] Reading MD: Reilly Laughlin Measurements Intervals [place] Rate: 129 P: 53 OR: 147 QRS: 13 QRSD: 83 T: 82 QT: 304 QTc: 446 Interpretive Statements Sinus tachycardia Atrial premature complex LAE, consider biatrial enlargement Abnormal R-wave progression, early transition Nonspecific T abnormalities, lateral leads Baseline wander in lead(s) I,III,aVR,aVL Compared to ECG 05/02/2020 14:36:15 Atrial premature complex(es) now present Electronically Signed On 05-07-2020 13:21:29 REMANUFACTURING TECHNICIAN by Reilly Laughlin [email or web address] <ELECTRONICALLY SIGNED> By: Reilly Laughlin MD, FACC 05/07/20 1321 1219 1219 Reilly Laughlin MD, [facility] /EPI
== END 2020-05-05 15:49 | disposition home or self-care (01) ==
LOC: M.ERS 12:03
PROVIDERS: Physician Assistant
DX: R10.31 Right lower quadrant pain (principal); R10.32 Left lower quadrant pain; R11.2 Nausea with vomiting, unspecified; R94.5 Abnormal results of liver function studies; J44.9 Chronic obstructive pulmonary disease, unspecified; G25.81 Restless legs syndrome; G89.29 Other chronic pain; G62.9 Polyneuropathy, unspecified; K31.84 Gastroparesis; Z90.710 Acquired absence of both cervix and uterus; Z90.49 Acquired absence of other specified parts of digestive tract; Z98.51 Tubal ligation status; Z85.118 Personal history of other malignant neoplasm of bronchus and lung; Z96.652 Presence of left artificial knee joint; Z79.899 Other long term (current) drug therapy

== ENCOUNTER 2020-05-10 10:33 | Emergency (ER) | payer OTHER ==
[~2020-05-10] VITALS: Ht 167.6 cm; Wt 70.3 kg
[2020-05-10 11:06] LABS: ABSOLUTE BASOPHILS 0.1 thou/uL (0.0-0.2); ABSOLUTE EOSINOPHILS 0.1 thou/uL (0.0-0.7); ABSOLUTE MONOCYTES 0.6 thou/uL (0.0-1.2); ABSOLUTE NEUTROPHILS 5.4 thou/uL (1.6-8.1); BASOPHILS 0.8 %; EOSINOPHILS 1.2 %; HEMATOCRIT 40.8 % (37.0-47.0); HEMOGLOBIN 13.8 gm/dL (12.0-15.0); LYMPHOCYTES 13.5 %; MCH 31.1 pg (26.0-34.0); MCHC 33.9 g/dL (28.0-37.0); MCV 91.7 fL (80.0-100.0); MONOCYTES 8.2 %; NUCLEATED RBCS 0 /100WBC; PLATELET COUNT* 206 thou/uL (150-400); POLYS 76.3 %; RBC 4.45 mil/uL (4.20-5.00); RDW-CV 14.4 % (10.5-14.5); WBC 7.1 thou/uL (4.0-11.0)
[2020-05-10 11:22] LABS: CALCIUM 9.2 mg/dL (8.5-10.1); CREATININE 1.1 mg/dL (0.6-1.3)
[2020-05-10 11:23] LABS: POTASSIUM 2.8 mmol/L (3.5-5.1)
[2020-05-10 11:27] LABS: ALBUMIN 3.3 g/dL (3.4-5.0); DIRECT BILIRUBIN 0.2 mg/dL (<0.1-0.3); MAGNESIUM 1.8 mg/dL (1.8-2.4); TOTAL BILIRUBIN 0.6 mg/dL (<0.1-1.0); TOTAL PROTEIN 6.5 g/dL (6.4-8.2)
[2020-05-10 12:02] LABS: URINE BILIRUBIN NEGATIVE (Negative); URINE BLOOD NEGATIVE (Negative); URINE CLARITY CLEAR; URINE COLOR YELLOW; URINE GLUCOSE-RANDOM TRACE (Negative); URINE KETONES NEGATIVE (Negative); URINE LEUKOCYTES NEGATIVE (Negative); URINE NITRITE NEGATIVE (Negative); URINE PROTEIN TRACE (Negative)
[2020-05-10] MEDS ORDERED: KLOR-CON 10 ER10 MEQ PO (12:36)
[2020-05-10] MEDS ORDERED: PHENERGAN 25 MG25 M1 PO ×2 (12:36→12:46)
[2020-05-10] MEDS ORDERED: PROMS25 WY RECTAL ×2 (12:36→12:53)
[2020-05-10] MEDS ORDERED: KLOR-CON 1010 MEQ PO (12:46)
[2020-05-10 13:12] VITALS: BP 128/81
== END 2020-05-10 13:12 | disposition home or self-care (01) ==
LOC: M.ERS 10:33
PROVIDERS: Emergency Medicine
DX: S00.83XA Contusion of other part of head, initial encounter (principal); R55 Syncope and collapse; K31.84 Gastroparesis; E87.6 Hypokalemia; G89.29 Other chronic pain; J44.9 Chronic obstructive pulmonary disease, unspecified; Z79.899 Other long term (current) drug therapy; Z90.710 Acquired absence of both cervix and uterus; Z98.51 Tubal ligation status; W22.8XXA Striking against or struck by other objects, initial encounter; Y93.01 Activity, walking, marching and hiking; Y92.091 Bathroom in other non-institutional residence as the place of occurrence of the external cause; Y99.9 Unspecified external cause status

== ENCOUNTER 2020-06-24 18:39 | Emergency (ER) | payer OTHER ==
[~2020-06-24] VITALS: Ht 167.6 cm; Wt 74.8 kg
[~2020-06-24 18:39] MED LIST changes: +KLOR-CON 10 ER10 MEQ PO; +KLOR-CON 1010 MEQ PO
[2020-06-24] MEDS ORDERED: HALOPERIDOL 1 MG1 MG PO (18:52)
[2020-06-24 19:17] LABS: ABSOLUTE LYMPHOCYTES 0.8 thou/uL (0.8-5.3); ABSOLUTE MONOCYTES 0.6 thou/uL (0.0-1.2); BASOPHILS 0.5 %; EOSINOPHILS 0.3 %; HEMATOCRIT 41.6 % (37.0-47.0); HEMOGLOBIN 13.9 gm/dL (12.0-15.0); LYMPHOCYTES 10.6 %; MCH 31.5 pg (26.0-34.0); MCHC 33.4 g/dL (28.0-37.0); MCV 94.3 fL (80.0-100.0); MONOCYTES 7.5 %; MPV 7.2 fl. (7.2-11.1); NUCLEATED RBCS 0 /100WBC; PLATELET COUNT* 305 thou/uL (150-400); POLYS 81.1 %; RBC 4.41 mil/uL (4.20-5.00); RDW-CV 15.2 % (10.5-14.5); WBC 7.4 thou/uL (4.0-11.0)
[2020-06-24 19:20] LABS: CALCIUM 8.9 mg/dL (8.5-10.1); CREATININE 1.1 mg/dL (0.6-1.3); POTASSIUM 3.5 mmol/L (3.5-5.1)
[2020-06-24 19:24] LABS: ALBUMIN 3.8 g/dL (3.4-5.0); TOTAL BILIRUBIN 0.6 mg/dL (<0.1-1.0); TOTAL PROTEIN 7.7 g/dL (6.4-8.2)
[2020-06-24 23:00] VITALS: BP 153/93
--- NOTE | 2020-06-25 17:34 | EKG ---
[place] [address] ELECTROCARDIOGRAM REPORT Name: PRICE BENOIT Room: [facility]#: [id number] Admission: 06/24/20 Attend Phys: Discharge: 06/24/20 Date of : 67 Date of Service: 06/24/20 1900 Report #: [id number] THIS REPORT FOR: //name// [facility] ED Test Date: 2020-06-24 Test Time: 19:00:13 Pat Name: PRICE BENOIT Department: Room: Gender: Digital Program Manager: : 1965 Requested By: Anel Irby Order Number: [id number] Rhys MD: Doug King Measurements Intervals [place] Rate: 115 P: 64 [place]: 140 QRS: 9 QRSD: 93 T: 81 QT: 330 QTc: 457 Interpretive Statements Sinus tachycardia Consider right atrial enlargement Abnormal R-wave progression, early transition Compared to ECG 06/24/2020 18:51:31 Early repolarization no longer present Possible ischemia no longer present Electronically Signed On 06-25-2020 17:34:37 CDT by Doug King [email or web address] <ELECTRONICALLY SIGNED> By: Doug King MD, FAC 06/25/20 1734 1900 1900 Doug King MD, [facility] /EPI
--- NOTE | 2020-06-25 17:35 | EKG ---
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: : 1965 Requested By: Anel Irby Order Number: [id number] Reading MD: Jacky Rosenberg Measurements Intervals [place] Rate: 119 P: [place]: QRS: -23 QRSD: 86 T: 106 QT: 317 QTc: 447 Interpretive Statements Sinus tachycardia borderline left axis deviation Abnormal R-wave progression, early transition Baseline artifact Compared to ECG 05/05/2020 12:19:04 Atrial premature complex(es) no longer present T-wave abnormality no longer present Electronically Signed On 06-25-2020 17:35:19 CDT by Jacky Rosenberg [email or web address] <ELECTRONICALLY SIGNED> By: Jacky Rosenberg MD, FACC 06/25/20 1735 50 50 Jacky Rosenberg MD, FAC /EPI
== END 2020-06-24 23:00 | disposition home or self-care (01) ==
LOC: M.ERS 18:39
PROVIDERS: Physician Assistant
DX: R11.2 Nausea with vomiting, unspecified (principal); Z20.822 Contact with and (suspected) exposure to COVID-19; J44.9 Chronic obstructive pulmonary disease, unspecified; G25.81 Restless legs syndrome; K31.84 Gastroparesis; G89.29 Other chronic pain; Z87.891 Personal history of nicotine dependence; Z90.710 Acquired absence of both cervix and uterus; Z90.49 Acquired absence of other specified parts of digestive tract; Z98.51 Tubal ligation status; Z96.652 Presence of left artificial knee joint; Z85.118 Personal history of other malignant neoplasm of bronchus and lung

== ENCOUNTER 2020-08-20 07:35 | Emergency (ER) | payer OTHER ==
[~2020-08-20] VITALS: Ht 167.6 cm; Wt 90.7 kg
[~2020-08-20 07:35] MED LIST changes: +HALOPERIDOL 1 MG1 MG PO
[2020-08-20] MEDS ORDERED: MIDODRINE HCL10 MG PO (07:52)
[2020-08-20 08:11] LABS: HEMATOCRIT 47.2 % (37.0-47.0); HEMOGLOBIN 15.7 gm/dL (12.0-15.0); MCH 29.7 pg (26.0-34.0); MCHC 33.2 g/dL (28.0-37.0); MCV 89.4 fL (80.0-100.0); MPV 7.5 fl. (7.2-11.1); NUCLEATED RBCS 0 /100WBC; PLATELET COUNT* 353 thou/uL (150-400); RBC 5.28 mil/uL (4.20-5.00); RDW-CV 14.8 % (10.5-14.5); WBC 13.3 thou/uL (4.0-11.0)
[2020-08-20 08:25] LABS: ALBUMIN 3.9 g/dL (3.4-5.0); CALCIUM 9.7 mg/dL (8.5-10.1); CREATININE 1.1 mg/dL (0.6-1.3); POTASSIUM 3.9 mmol/L (3.5-5.1); TOTAL BILIRUBIN 0.2 mg/dL (<0.1-1.0); TOTAL PROTEIN 8.3 g/dL (6.4-8.2)
[2020-08-20 08:59] LABS: ABSOLUTE LYMPHOCYTES 1.1 thou/uL (0.8-5.3); ABSOLUTE MONOCYTES 0.4 thou/uL (0.0-1.2); ABSOLUTE NEUTROPHILS 11.8 thou/uL (1.6-8.1); ATYPICAL LYMPHS 1 %; PLATELET ESTIMATE ADEQUATE
[2020-08-20 09:35] LABS: URINE BILIRUBIN NEGATIVE (Negative); URINE BLOOD TRACE (Negative); URINE CLARITY CLEAR; URINE COLOR YELLOW; URINE GLUCOSE-RANDOM NEGATIVE (Negative); URINE KETONES NEGATIVE (Negative); URINE LEUKOCYTES-REFLEX NEGATIVE (Negative); URINE NITRITE-REFLEX NEGATIVE (Negative); URINE PROTEIN 1+ (Negative); URINE SPECIFIC GRAVITY <= 1.005 (1.005-1.030); URINE UROBILINOGEN 0.2 E.U./dl (0.2-1.0)
[2020-08-20 09:45] LABS: BACTERIA-REFLEX 1-9 Few /HPF (None Seen); CASTS None Seen /LPF (None Seen); CRYSTALS None Seen /LPF (None Seen); MUCUS None Seen strn/LPF (None Seen); SQUAMOUS 0-3 Few /LPF (0-3); URINE RBC 0-2 Rare /HPF (0-2); URINE WBC-REFLEX 0-5 Rare /HPF (0-5)
[2020-08-20 10:15] LABS: AMP/METHAMP Negative (Negative); BARBITURATES Negative (Negative); BENZODIAZEPINES Negative (Negative); COCAINE Negative (Negative); METHADONE Negative (Negative); OPIATES Negative (Negative); PCP Negative (Negative); THC POSITIVE (Negative)
--- NOTE | 2020-08-20 10:36 | EKG ---
[place] [address] ELECTROCARDIOGRAM REPORT Name: KAYCEEPRICE Fitch Room: [facility]#: [id number] Admission: 08/20/20 Attend Phys: Discharge: Date of : 67 Date of Service: 08/20/20 0759 Report #: [id number] THIS REPORT FOR: //name// [facility] ED Test Date: 2020-08-20 Test Time: 07:59:49 Pat Name: PRICE BENOIT Department: Room: Gender: F Silk Snapper: : 1965 Requested By: Elio Gold Order Number: [id number] MD: Reilly Laughlin Measurements Intervals [place] Rate: 128 P: [place]: QRS: -13 QRSD: 84 T: 86 QT: 300 QTc: 438 Interpretive Statements sinus tachycardia Abnormal R-wave progression, early transition Artifact in lead(s) II,aVR,aVF,V2,V4,V5,V6 Compared to ECG 06/24/2020 19:00:13 no change Electronically Signed On 08-20-2020 10:36:39 CDT by Reilly Laughlin [email or web address] <ELECTRONICALLY SIGNED> By: Reilly Laughlin MD, [facility] 08/20/20 1036 0759 0759 Reilly Laughlin MD, [facility] /EPI
[2020-08-20 11:11] VITALS: BP 165/98
== END 2020-08-20 11:13 | disposition home or self-care (01) ==
LOC: M.ERS 07:35
PROVIDERS: Emergency Medicine Emergency Medical Services
DX: R11.2 Nausea with vomiting, unspecified (principal); G25.81 Restless legs syndrome; J44.9 Chronic obstructive pulmonary disease, unspecified; K31.84 Gastroparesis; Z87.891 Personal history of nicotine dependence; Z90.710 Acquired absence of both cervix and uterus; Z90.49 Acquired absence of other specified parts of digestive tract; Z98.51 Tubal ligation status; Z85.118 Personal history of other malignant neoplasm of bronchus and lung; Z96.652 Presence of left artificial knee joint; Z79.899 Other long term (current) drug therapy

== ENCOUNTER 2020-08-20 14:47 | Emergency (ER) | payer OTHER ==
[~2020-08-20] VITALS: Ht 167.6 cm; Wt 90.7 kg
[2020-08-20 15:47] LABS: URINE BILIRUBIN NEGATIVE (Negative); URINE BLOOD NEGATIVE (Negative); URINE CLARITY CLEAR; URINE COLOR YELLOW; URINE GLUCOSE-RANDOM NEGATIVE (Negative); URINE KETONES NEGATIVE (Negative); URINE LEUKOCYTES-REFLEX NEGATIVE (Negative); URINE NITRITE-REFLEX NEGATIVE (Negative); URINE PROTEIN 2+ (Negative); URINE SPECIFIC GRAVITY <= 1.005 (1.005-1.030); URINE UROBILINOGEN 0.2 E.U./dl (0.2-1.0)
[2020-08-20 15:56] LABS: HEMATOCRIT 44.1 % (37.0-47.0); HEMOGLOBIN 14.6 gm/dL (12.0-15.0); MCH 29.9 pg (26.0-34.0); MCV 90.6 fL (80.0-100.0); MPV 7.3 fl. (7.2-11.1); NUCLEATED RBCS 0 /100WBC; PLATELET COUNT* 244 thou/uL (150-400); RBC 4.87 mil/uL (4.20-5.00); RDW-CV 15.1 % (10.5-14.5); WBC 11.5 thou/uL (4.0-11.0)
[2020-08-20 16:01] LABS: BACTERIA-REFLEX None Seen /HPF (None Seen); SQUAMOUS 0-3 Few /LPF (0-3); URINE RBC None Seen /HPF (0-2); URINE WBC-REFLEX None Seen /HPF (0-5)
[2020-08-20 16:02] LABS: CALCIUM 9.7 mg/dL (8.5-10.1); CREATININE 1.1 mg/dL (0.6-1.3); POTASSIUM 3.7 mmol/L (3.5-5.1)
[2020-08-20 16:02] LABS: CASTS None Seen /LPF (None Seen); CRYSTALS None Seen /LPF (None Seen)
[2020-08-20 16:33] LABS: ABSOLUTE LYMPHOCYTES 0.7 thou/uL (0.8-5.3); ABSOLUTE MONOCYTES 0.3 thou/uL (0.0-1.2); ABSOLUTE NEUTROPHILS 10.5 thou/uL (1.6-8.1)
[2020-08-20 16:34] LABS: PLATELET ESTIMATE ADEQUATE
[2020-08-20 16:45] VITALS: BP 140/81
== END 2020-08-20 16:45 | disposition home or self-care (01) ==
LOC: M.ERS 14:47
PROVIDERS: Nurse Practitioner Family
DX: R11.15 Cyclical vomiting syndrome unrelated to migraine (principal); G89.29 Other chronic pain; M54.5 Low back pain; F12.90 Cannabis use, unspecified, uncomplicated; G25.81 Restless legs syndrome; J44.9 Chronic obstructive pulmonary disease, unspecified; Z87.891 Personal history of nicotine dependence; Z90.710 Acquired absence of both cervix and uterus; Z90.49 Acquired absence of other specified parts of digestive tract; Z98.51 Tubal ligation status; Z85.118 Personal history of other malignant neoplasm of bronchus and lung; Z96.652 Presence of left artificial knee joint

== ENCOUNTER 2020-08-22 19:22 | Inpatient (IN) | payer OTHER ==
[~2020-08-22] VITALS: Ht 170.2 cm; Wt 90.7 kg
[2020-08-22 19:31] VITALS: BP 183/108
[2020-08-22 20:05] LABS: ABSOLUTE BASOPHILS 0.1 thou/uL (0.0-0.2); ABSOLUTE LYMPHOCYTES 0.9 thou/uL (0.8-5.3); ABSOLUTE MONOCYTES 0.5 thou/uL (0.0-1.2); ABSOLUTE NEUTROPHILS 7.7 thou/uL (1.6-8.1); BASOPHILS 0.7 %; EOSINOPHILS 0.4 %; HEMOGLOBIN 15.5 gm/dL (12.0-15.0); LYMPHOCYTES 10.1 %; MCHC 33.8 g/dL (28.0-37.0); MONOCYTES 5.5 %; MPV 7.4 fl. (7.2-11.1); NUCLEATED RBCS 0 /100WBC; PLATELET COUNT* 278 thou/uL (150-400); POLYS 83.3 %; RBC 5.17 mil/uL (4.20-5.00); RDW-CV 14.6 % (10.5-14.5); WBC 9.2 thou/uL (4.0-11.0)
[2020-08-22 20:33] LABS: CALCIUM 9.8 mg/dL (8.5-10.1); CREATININE 0.9 mg/dL (0.6-1.3); POTASSIUM 3.9 mmol/L (3.5-5.1); TOTAL BILIRUBIN 0.4 mg/dL (<0.1-1.0); TOTAL PROTEIN 8.3 g/dL (6.4-8.2)
[2020-08-22 21:26] LABS: URINE BILIRUBIN NEGATIVE (Negative); URINE BLOOD NEGATIVE (Negative); URINE CLARITY CLEAR; URINE COLOR YELLOW; URINE GLUCOSE-RANDOM NEGATIVE (Negative); URINE KETONES NEGATIVE (Negative); URINE LEUKOCYTES NEGATIVE (Negative); URINE NITRITE NEGATIVE (Negative); URINE PROTEIN NEGATIVE (Negative); URINE UROBILINOGEN 0.2 E.U./dl (0.2-1.0)
[2020-08-22 21:35] LABS: AMP/METHAMP Negative (Negative); BARBITURATES Negative (Negative); BENZODIAZEPINES Negative (Negative); COCAINE Negative (Negative); METHADONE Negative (Negative); OPIATES Negative (Negative); PCP Negative (Negative); THC POSITIVE (Negative)
[2020-08-22 23:03] VITALS: BP 162/92
[2020-08-22 23:33] VITALS: BP 157/93
[2020-08-23 08:00] VITALS: BP 178/107
--- NOTE | 2020-08-23 09:39 | EKG ---
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: [place] : 1965 Requested By: Christel Barajas Order Number: [id number] MD: Reilly Laughlin Measurements Intervals [place] Rate: 125 P: 65 [place]: 152 QRS: -29 QRSD: 100 T: 78 QT: 320 QTc: 462 Interpretive Statements Sinus tachycardia Borderline left axis deviation Artifact in lead(s) I,II,III,aVR,aVL,aVF,V2,V4 and baseline wander in lead(s) V1,V2 Compared to ECG 08/20/2020 07:59:49 No significant changes Electronically Signed On 08-23-2020 9:39:35 CDT by Reilly Laughlin [email or web address] <ELECTRONICALLY SIGNED> By: Reilly Laughlin MD, [facility] 08/23/20 0939 32 32 Reilly Laughlin MD, [facility] /EPI
[2020-08-23 16:00] VITALS: BP 170/92
[2020-08-23 20:00] VITALS: BP 157/90
[2020-08-24 07:57] LABS: HEMATOCRIT 41.5 % (37.0-47.0); MCH 30.1 pg (26.0-34.0); MCHC 33.7 g/dL (28.0-37.0); MCV 89.3 fL (80.0-100.0); MPV 7.5 fl. (7.2-11.1); RBC 4.65 mil/uL (4.20-5.00); RDW-CV 14.4 % (10.5-14.5); WBC 7.5 thou/uL (4.0-11.0)
[2020-08-24 08:02] LABS: CALCIUM 8.4 mg/dL (8.5-10.1); CREATININE 0.6 mg/dL (0.6-1.3); POTASSIUM 3.6 mmol/L (3.5-5.1)
[2020-08-24 08:03] VITALS: BP 162/95
[2020-08-24 08:20] VITALS: BP 162/95
[2020-08-24 16:41] VITALS: BP 157/92
[2020-08-24 20:45] VITALS: BP 149/91
[2020-08-25 03:48] LABS: HEMATOCRIT 40.5 % (37.0-47.0); HEMOGLOBIN 13.4 gm/dL (12.0-15.0); MCH 29.6 pg (26.0-34.0); MCV 89.7 fL (80.0-100.0); MPV 7.5 fl. (7.2-11.1); RBC 4.51 mil/uL (4.20-5.00); RDW-CV 14.6 % (10.5-14.5)
[2020-08-25 04:21] LABS: CALCIUM 8.4 mg/dL (8.5-10.1); CREATININE 0.6 mg/dL (0.6-1.3); POTASSIUM 3.5 mmol/L (3.5-5.1)
[2020-08-25 06:54] LABS: URINE BLOOD TRACE (Negative); URINE CLARITY CLEAR; URINE COLOR YELLOW; URINE GLUCOSE-RANDOM TRACE (Negative); URINE KETONES 1+ (Negative); URINE LEUKOCYTES NEGATIVE (Negative); URINE NITRITE NEGATIVE (Negative); URINE PROTEIN NEGATIVE (Negative); URINE SPECIFIC GRAVITY 1.025 (1.005-1.030)
[2020-08-25 07:11] LABS: ICTOTEST (BILI CONFIRMATORY) Negative (Negative); URINE BILIRUBIN 1+ (Negative)
[2020-08-25 08:10] VITALS: BP 140/82
[2020-08-25 15:51] VITALS: BP 151/89
[2020-08-25 21:00] VITALS: BP 159/97
[2020-08-26 04:44] LABS: HEMATOCRIT 41.7 % (37.0-47.0); HEMOGLOBIN 13.8 gm/dL (12.0-15.0); MCH 29.2 pg (26.0-34.0); MCHC 33.1 g/dL (28.0-37.0); MCV 88.1 fL (80.0-100.0); MPV 7.7 fl. (7.2-11.1); RBC 4.73 mil/uL (4.20-5.00); RDW-CV 14.8 % (10.5-14.5); WBC 6.7 thou/uL (4.0-11.0)
[2020-08-26 05:01] LABS: CALCIUM 8.6 mg/dL (8.5-10.1); CREATININE 0.6 mg/dL (0.6-1.3); POTASSIUM 3.3 mmol/L (3.5-5.1)
[2020-08-26] MEDS ORDERED: TRANSDERM-SCOP1 EACH TRANSDERM (07:08)
[2020-08-26] MEDS ORDERED: REGLAN 5 MG TAB5 MG PO (07:08)
[2020-08-26 07:50] VITALS: BP 160/89
[2020-08-26 13:04] VITALS: BP 160/89
== END 2020-08-26 13:30 | disposition home or self-care (01) | DRG 440 ==
LOC: M.ERS 19:22 → M.TBA-ER 21:15 → M.ORTHSURG 21:15
PROVIDERS: Internal Medicine; Physician Assistant; ADMIT Family Medicine; ATTEND Family Medicine
DX: K85.90 Acute pancreatitis without necrosis or infection, unspecified (principal); K31.84 Gastroparesis; G89.29 Other chronic pain; M54.9 Dorsalgia, unspecified; F32.9 Major depressive disorder, single episode, unspecified; F41.1 Generalized anxiety disorder; G47.00 Insomnia, unspecified; G62.9 Polyneuropathy, unspecified; G25.81 Restless legs syndrome; J44.9 Chronic obstructive pulmonary disease, unspecified; F12.90 Cannabis use, unspecified, uncomplicated; Z96.652 Presence of left artificial knee joint; Z20.822 Contact with and (suspected) exposure to COVID-19; Z85.118 Personal history of other malignant neoplasm of bronchus and lung; Z90.710 Acquired absence of both cervix and uterus; Z79.899 Other long term (current) drug therapy; Z68.33 Body mass index [BMI] 33.0-33.9, adult

== ENCOUNTER 2020-09-11 21:40 | Emergency (ER) | payer OTHER ==
[~2020-09-11] VITALS: Ht 167.6 cm; Wt 90.7 kg
[~2020-09-11 21:40] MED LIST changes: +TRANSDERM-SCOP1 EACH TRANSDERM
[2020-09-11] MEDS ORDERED: LINZESS145 MCG PO (21:52)
[2020-09-11 22:21] LABS: URINE BILIRUBIN NEGATIVE (Negative); URINE BLOOD TRACE (Negative); URINE CLARITY CLEAR; URINE COLOR YELLOW; URINE GLUCOSE-RANDOM NEGATIVE (Negative); URINE KETONES NEGATIVE (Negative); URINE LEUKOCYTES-REFLEX NEGATIVE (Negative); URINE NITRITE-REFLEX NEGATIVE (Negative); URINE PROTEIN NEGATIVE (Negative); URINE SPECIFIC GRAVITY >= 1.030 (1.005-1.030); URINE UROBILINOGEN 0.2 E.U./dl (0.2-1.0)
[2020-09-11 22:21] LABS: HEMATOCRIT 44.8 % (37.0-47.0); HEMOGLOBIN 15.1 gm/dL (12.0-15.0); MCH 29.5 pg (26.0-34.0); MCHC 33.8 g/dL (28.0-37.0); MCV 87.2 fL (80.0-100.0); NUCLEATED RBCS 0 /100WBC; PLATELET COUNT* 282 thou/uL (150-400); RBC 5.13 mil/uL (4.20-5.00); RDW-CV 15.7 % (10.5-14.5); WBC 8.2 thou/uL (4.0-11.0)
[2020-09-11 22:23] LABS: CALCIUM 9.4 mg/dL (8.5-10.1)
[2020-09-11 22:27] LABS: TOTAL BILIRUBIN 0.3 mg/dL (<0.1-1.0); TOTAL PROTEIN 8.1 g/dL (6.4-8.2)
[2020-09-12] MEDS ORDERED: PHENERGAN 25 MG25 M1 PO (00:17)
[2020-09-12] MEDS ORDERED: COLACE100 MG PO (00:17)
[2020-09-12] MEDS ORDERED: PROMS25 WY RECTAL (00:17)
[2020-09-12 00:23] LABS: ABSOLUTE LYMPHOCYTES 1.1 thou/uL (0.8-5.3); ABSOLUTE MONOCYTES 0.3 thou/uL (0.0-1.2); ABSOLUTE NEUTROPHILS 6.7 thou/uL (1.6-8.1); GIANT PLATELETS RARE; PLATELET ESTIMATE ADEQUATE
[2020-09-12 00:24] LABS: POLYCHROMASIA 1+
[2020-09-12 00:33] VITALS: BP 163/92
--- NOTE | 2020-09-12 14:14 | EKG ---
[place] [address] ELECTROCARDIOGRAM REPORT Name: PRICE BENOIT Room: [facility]#: [id number] Admission: 09/11/20 Attend Phys: Discharge: 09/12/20 Date of : 67 Date of Service: 09/11/202212 Report #: [id number] THIS REPORT FOR: //name// [facility] ED Test Date: 2020-09-11 Test Time: 22:13:26 Pat Name: PRICE BENOIT Department: Room: Gender: Behavioral Geneticist: SYED : 1965 Requested By: Anel Irby Order Number: [id number] MD: Doug King Measurements Intervals [place] Rate: 118 P: 47 [place]: 160 QRS: -32 QRSD: 101 T: 76 QT: 322 QTc: 452 Interpretive Statements Sinus tachycardia LAE, consider biatrial enlargement Left axis deviation Abnormal R-wave progression, early transition Artifact in lead(s) I,II,III,aVR,aVL,aVF Compared to ECG 08/22/2020 19:33:03 No significant interval change Electronically Signed On 09-12-2020 14:14:24 CDT by Doug King [email or web address] <ELECTRONICALLY SIGNED> By: Doug King MD, [facility] 09/12/20 1414 12 221 Doug King MD, [facility] /EPI
[2020-09-13] MEDS ORDERED: ZOFRAN ODT4 MG PO (21:35)
== END 2020-09-12 00:33 | disposition home or self-care (01) ==
LOC: M.ERS 21:40
PROVIDERS: Personal Emergency Response Attendant
DX: R11.15 Cyclical vomiting syndrome unrelated to migraine (principal); Z20.822 Contact with and (suspected) exposure to COVID-19; K59.00 Constipation, unspecified; J44.9 Chronic obstructive pulmonary disease, unspecified; F41.1 Generalized anxiety disorder; F32.9 Major depressive disorder, single episode, unspecified; G62.9 Polyneuropathy, unspecified; Z90.711 Acquired absence of uterus with remaining cervical stump; Z90.49 Acquired absence of other specified parts of digestive tract; Z98.51 Tubal ligation status; Z85.118 Personal history of other malignant neoplasm of bronchus and lung; Z96.652 Presence of left artificial knee joint; Z79.899 Other long term (current) drug therapy; Z87.891 Personal history of nicotine dependence

== ENCOUNTER 2020-09-12 04:53 | Emergency (ER) | payer OTHER ==
[~2020-09-12] VITALS: Ht 167.6 cm; Wt 90.7 kg
[~2020-09-12 04:53] MED LIST changes: +COLACE100 MG PO; +LINZESS145 MCG PO
[2020-09-12 06:24] VITALS: BP 167/92
[2020-09-13] MEDS ORDERED: ZOFRAN ODT4 MG PO (21:35)
== END 2020-09-12 06:25 | disposition home or self-care (01) ==
LOC: M.ERS 04:53
DX: R11.2 Nausea with vomiting, unspecified (principal); R10.32 Left lower quadrant pain; K59.00 Constipation, unspecified; F32.9 Major depressive disorder, single episode, unspecified; F41.9 Anxiety disorder, unspecified; M25.562 Pain in left knee; J44.9 Chronic obstructive pulmonary disease, unspecified; G62.9 Polyneuropathy, unspecified; Z90.710 Acquired absence of both cervix and uterus; Z90.49 Acquired absence of other specified parts of digestive tract; Z98.51 Tubal ligation status; Z85.118 Personal history of other malignant neoplasm of bronchus and lung; Z79.899 Other long term (current) drug therapy; Z87.891 Personal history of nicotine dependence

== ENCOUNTER 2020-09-13 20:37 | Emergency (ER) | payer OTHER ==
[~2020-09-13] VITALS: Ht 167.6 cm; Wt 90.7 kg
[2020-09-13] MEDS ORDERED: ZOFRAN ODT4 MG PO (21:35)
[2020-09-13 22:10] VITALS: BP 165/95
== END 2020-09-13 22:10 | disposition home or self-care (01) ==
LOC: M.ERS 20:37
DX: M25.561 Pain in right knee (principal); R11.2 Nausea with vomiting, unspecified; Z76.0 Encounter for issue of repeat prescription; Z87.891 Personal history of nicotine dependence; Z79.899 Other long term (current) drug therapy; Z90.710 Acquired absence of both cervix and uterus; Z90.49 Acquired absence of other specified parts of digestive tract

== ENCOUNTER 2020-09-14 18:22 | Emergency (ER) | payer OTHER ==
[~2020-09-14] VITALS: Ht 167.6 cm; Wt 90.7 kg
[2020-09-14 19:56] LABS: HEMATOCRIT 45.1 % (37.0-47.0); HEMOGLOBIN 15.2 gm/dL (12.0-15.0); MCH 29.2 pg (26.0-34.0); MCHC 33.7 g/dL (28.0-37.0); MCV 86.7 fL (80.0-100.0); MPV 7.3 fl. (7.2-11.1); NUCLEATED RBCS 0 /100WBC; PLATELET COUNT* 258 thou/uL (150-400); RDW-CV 15.9 % (10.5-14.5); WBC 12.7 thou/uL (4.0-11.0)
[2020-09-14 20:04] LABS: CALCIUM 8.9 mg/dL (8.5-10.1); CREATININE 0.8 mg/dL (0.6-1.3); POTASSIUM 3.5 mmol/L (3.5-5.1)
[2020-09-14 20:08] LABS: ALBUMIN 3.7 g/dL (3.4-5.0); TOTAL BILIRUBIN 0.5 mg/dL (<0.1-1.0); TOTAL PROTEIN 7.6 g/dL (6.4-8.2)
[2020-09-14 20:44] LABS: ABSOLUTE MONOCYTES 0.5 thou/uL (0.0-1.2); ABSOLUTE NEUTROPHILS 11.2 thou/uL (1.6-8.1); PLATELET ESTIMATE ADEQUATE
[2020-09-14 20:52] LABS: URINE BILIRUBIN NEGATIVE (Negative); URINE BLOOD TRACE (Negative); URINE CLARITY CLEAR; URINE COLOR YELLOW; URINE GLUCOSE-RANDOM NEGATIVE (Negative); URINE KETONES NEGATIVE (Negative); URINE LEUKOCYTES-REFLEX TRACE (Negative); URINE NITRITE-REFLEX NEGATIVE (Negative); URINE PROTEIN 1+ (Negative); URINE SPECIFIC GRAVITY 1.015 (1.005-1.030)
[2020-09-14 21:00] LABS: BACTERIA-REFLEX 1-9 Few /HPF (None Seen); CASTS None Seen /LPF (None Seen); SQUAMOUS 0-3 Few /LPF (0-3); URINE RBC 0-2 Rare /HPF (0-2); URINE WBC-REFLEX 0-5 Rare /HPF (0-5)
[2020-09-14 21:01] LABS: CRYSTALS None Seen /LPF (None Seen)
[2020-09-14 22:20] VITALS: BP 152/95
== END 2020-09-14 22:20 | disposition home or self-care (01) ==
LOC: M.ERS 18:22
PROVIDERS: Physician Assistant
DX: R11.15 Cyclical vomiting syndrome unrelated to migraine (principal); R10.84 Generalized abdominal pain; Z79.899 Other long term (current) drug therapy; Z90.710 Acquired absence of both cervix and uterus; Z90.49 Acquired absence of other specified parts of digestive tract; Z98.51 Tubal ligation status

== ENCOUNTER 2020-09-20 17:12 | Emergency (ER) | payer OTHER | END 2020-09-20 17:36 | disposition left against medical advice (07) | LOC: M.ERS 17:12 | DX: Z53.21 Procedure and treatment not carried out due to patient leaving prior to being seen by health care provider (principal) ==

== ENCOUNTER 2020-09-21 00:03 | Emergency (ER) | payer OTHER ==
[~2020-09-21] VITALS: Ht 167.6 cm; Wt 86.2 kg
[2020-09-21 02:55] LABS: HEMOGLOBIN 15.2 gm/dL (12.0-15.0); MCH 29.5 pg (26.0-34.0); MCHC 33.9 g/dL (28.0-37.0); MCV 86.8 fL (80.0-100.0); MPV 7.9 fl. (7.2-11.1); NUCLEATED RBCS 0 /100WBC; PLATELET COUNT* 218 thou/uL (150-400); RBC 5.18 mil/uL (4.20-5.00); RDW-CV 17.1 % (10.5-14.5); WBC 7.8 thou/uL (4.0-11.0)
[2020-09-21 03:04] LABS: ANION GAP 5 mmol/L (7-16); BUN 12 mg/dL (7-18); CALCIUM 9.4 mg/dL (8.5-10.1); CHLORIDE 104 mmol/L (98-107); CO2 33 mmol/L (21-32); CREATININE 0.8 mg/dL (0.6-1.3); GLUCOSE 148 mg/dL (70-99); POTASSIUM 3.5 mmol/L (3.5-5.1); SODIUM 142 mmol/L (136-145)
[2020-09-21 03:08] LABS: ALBUMIN 3.4 g/dL (3.4-5.0); ALKALINE PHOSPHATASE 174 U/L (46-116); LIPASE 139 U/L (73-393); MAGNESIUM 1.8 mg/dL (1.8-2.4); SGOT 12 U/L (15-37); SGPT 17 U/L (30-65); TOTAL BILIRUBIN < 0.1 mg/dL (<0.1-1.0); TOTAL PROTEIN 7.3 g/dL (6.4-8.2)
[2020-09-21 03:35] LABS: ABSOLUTE LYMPHOCYTES 0.9 thou/uL (0.8-5.3); ABSOLUTE MONOCYTES 0.2 thou/uL (0.0-1.2); ABSOLUTE NEUTROPHILS 6.7 thou/uL (1.6-8.1)
[2020-09-21 03:37] LABS: ANISOCYTOSIS 1+; PLATELET ESTIMATE ADEQUATE
[2020-09-21 05:24] LABS: URINE BILIRUBIN NEGATIVE (Negative); URINE BLOOD TRACE (Negative); URINE CLARITY CLEAR; URINE COLOR YELLOW; URINE GLUCOSE-RANDOM NEGATIVE (Negative); URINE KETONES TRACE (Negative); URINE LEUKOCYTES-REFLEX NEGATIVE (Negative); URINE NITRITE-REFLEX NEGATIVE (Negative); URINE PROTEIN TRACE (Negative); URINE SPECIFIC GRAVITY 1.015 (1.005-1.030); URINE UROBILINOGEN 0.2 E.U./dl (0.2-1.0)
[2020-09-21 07:10] VITALS: BP 150/87
== END 2020-09-21 07:10 | disposition home or self-care (01) ==
LOC: M.ERS 00:03
PROVIDERS: Emergency Medicine
DX: R11.2 Nausea with vomiting, unspecified (principal); R10.33 Periumbilical pain; R10.13 Epigastric pain; R10.84 Generalized abdominal pain; Z87.891 Personal history of nicotine dependence; J44.9 Chronic obstructive pulmonary disease, unspecified; Z90.710 Acquired absence of both cervix and uterus; Z90.49 Acquired absence of other specified parts of digestive tract; Z98.51 Tubal ligation status; Z85.118 Personal history of other malignant neoplasm of bronchus and lung; Z96.652 Presence of left artificial knee joint; G25.81 Restless legs syndrome; G62.9 Polyneuropathy, unspecified

== ENCOUNTER 2020-09-24 18:19 | Emergency (ER) | payer OTHER ==
[~2020-09-24] VITALS: Ht 167.6 cm; Wt 90.7 kg
[2020-09-24 19:05] LABS: ABSOLUTE BASOPHILS 0.1 thou/uL (0.0-0.2); ABSOLUTE LYMPHOCYTES 0.9 thou/uL (0.8-5.3); ABSOLUTE MONOCYTES 0.3 thou/uL (0.0-1.2); BASOPHILS 0.8 %; EOSINOPHILS 0.4 %; HEMATOCRIT 45.8 % (37.0-47.0); HEMOGLOBIN 15.8 gm/dL (12.0-15.0); LYMPHOCYTES 10.9 %; MCH 29.7 pg (26.0-34.0); MCHC 34.5 g/dL (28.0-37.0); MCV 86.2 fL (80.0-100.0); MONOCYTES 3.5 %; MPV 7.8 fl. (7.2-11.1); NUCLEATED RBCS 0 /100WBC; PLATELET COUNT* 246 thou/uL (150-400); POLYS 84.4 %; RBC 5.32 mil/uL (4.20-5.00); RDW-CV 17.4 % (10.5-14.5); WBC 8.3 thou/uL (4.0-11.0)
[2020-09-24 19:15] LABS: CREATININE 0.9 mg/dL (0.6-1.3)
[2020-09-24 19:21] LABS: URINE BILIRUBIN NEGATIVE (Negative); URINE BLOOD NEGATIVE (Negative); URINE CLARITY CLOUDY; URINE COLOR YELLOW; URINE GLUCOSE-RANDOM NEGATIVE (Negative); URINE KETONES NEGATIVE (Negative); URINE LEUKOCYTES-REFLEX NEGATIVE (Negative); URINE NITRITE-REFLEX NEGATIVE (Negative); URINE PROTEIN NEGATIVE (Negative); URINE UROBILINOGEN 0.2 E.U./dl (0.2-1.0)
[2020-09-24 19:27] LABS: ALBUMIN 3.6 g/dL (3.4-5.0); TOTAL BILIRUBIN 0.3 mg/dL (<0.1-1.0); TOTAL PROTEIN 7.6 g/dL (6.4-8.2)
[2020-09-24 19:29] LABS: MUCUS None Seen strn/LPF (None Seen); SQUAMOUS 0-3 Few /LPF (0-3)
[2020-09-24 19:30] LABS: AMORPHOUS PHOSPHATES Many /LPF (None Seen); BACTERIA-REFLEX 1-9 Few /HPF (None Seen); CASTS None Seen /LPF (None Seen); CRYSTALS None Seen /LPF (None Seen); URINE RBC None Seen /HPF (0-2); URINE WBC-REFLEX 0-5 Rare /HPF (0-5)
[2020-09-24] MEDS ORDERED: PROMS25 WY RECTAL (20:43)
[2020-09-24] MEDS ORDERED: PHENERGAN 25 MG25 M1 PO (20:43)
[2020-09-24 21:50] VITALS: BP 199/106
--- NOTE | 2020-09-25 11:06 | EKG ---
[place] [address] ELECTROCARDIOGRAM REPORT Name: PRICE BENOIT Room: [facility]#: [id number] Admission: 09/24/20 Attend Phys: Discharge: 09/24/20 Date of : 67 Date of Service: 09/24/201926 Report #: [id number] THIS REPORT FOR: //name// [facility] ED Test Date: 2020-09-24 Test Time: 19:27:02 Pat Name: PRICE BENOIT Department: Room: Gender: Remote Sensing Technologist: : 1965 Requested By: Airam Singer Order Number: [id number] MD: Doug King Measurements Intervals [place] Rate: 105 P: 51 [place]: 169 QRS: -46 QRSD: 91 T: 67 QT: 353 QTc: 467 Interpretive Statements Sinus tachycardia Consider right atrial enlargement Left anterior fascicular block Abnormal R-wave progression, early transition Artifact in lead(s) I,II,III,aVR,aVL,aVF Compared to ECG 09/11/2020 22:13:26 Left anterior fascicular block persists Electronically Signed On 09-25-2020 11:06:04 CDT by Doug King [email or web address] <ELECTRONICALLY SIGNED> By: Doug King MD, [facility] 09/25/20 1106 26 26 Doug King MD, [facility] /EPI
== END 2020-09-24 21:50 | disposition home or self-care (01) ==
LOC: M.ERS 18:19
PROVIDERS: Nurse Practitioner Family
DX: R11.15 Cyclical vomiting syndrome unrelated to migraine (principal); R19.7 Diarrhea, unspecified; R10.32 Left lower quadrant pain; J44.9 Chronic obstructive pulmonary disease, unspecified; G25.81 Restless legs syndrome; K31.84 Gastroparesis; G62.9 Polyneuropathy, unspecified; Z87.891 Personal history of nicotine dependence; Z90.710 Acquired absence of both cervix and uterus; Z90.49 Acquired absence of other specified parts of digestive tract; Z98.51 Tubal ligation status; Z85.118 Personal history of other malignant neoplasm of bronchus and lung; Z96.652 Presence of left artificial knee joint

== ENCOUNTER 2020-09-26 18:29 | Emergency (ER) | payer OTHER ==
[~2020-09-26] VITALS: Ht 167.6 cm; Wt 90.7 kg
[2020-09-26 19:05] LABS: ABSOLUTE BASOPHILS 0.1 thou/uL (0.0-0.2); ABSOLUTE LYMPHOCYTES 0.9 thou/uL (0.8-5.3); ABSOLUTE MONOCYTES 0.6 thou/uL (0.0-1.2); ABSOLUTE NEUTROPHILS 9.4 thou/uL (1.6-8.1); BASOPHILS 0.9 %; EOSINOPHILS 0.3 %; HEMATOCRIT 45.6 % (37.0-47.0); HEMOGLOBIN 15.6 gm/dL (12.0-15.0); MCH 29.6 pg (26.0-34.0); MCHC 34.3 g/dL (28.0-37.0); MCV 86.3 fL (80.0-100.0); MONOCYTES 5.4 %; MPV 7.4 fl. (7.2-11.1); NUCLEATED RBCS 0 /100WBC; PLATELET COUNT* 250 thou/uL (150-400); POLYS 85.4 %; RBC 5.29 mil/uL (4.20-5.00); RDW-CV 17.3 % (10.5-14.5)
[2020-09-26 19:13] LABS: CALCIUM 9.3 mg/dL (8.5-10.1); CREATININE 0.9 mg/dL (0.6-1.3); POTASSIUM 3.6 mmol/L (3.5-5.1)
[2020-09-26 19:18] LABS: ALBUMIN 3.8 g/dL (3.4-5.0); TOTAL BILIRUBIN 0.3 mg/dL (<0.1-1.0); TOTAL PROTEIN 7.9 g/dL (6.4-8.2)
[2020-09-26 22:30] VITALS: BP 144/76
== END 2020-09-26 22:30 | disposition home or self-care (01) ==
LOC: M.ERS 18:29
PROVIDERS: Physician Assistant
DX: R11.2 Nausea with vomiting, unspecified (principal); R19.7 Diarrhea, unspecified; F17.210 Nicotine dependence, cigarettes, uncomplicated; Z90.710 Acquired absence of both cervix and uterus; Z98.51 Tubal ligation status

== ENCOUNTER 2020-10-17 08:55 | Emergency (ER) | payer OTHER ==
[~2020-10-17] VITALS: Ht 157.5 cm; Wt 72.6 kg
[2020-10-17 09:35] LABS: HEMATOCRIT 44.1 % (37.0-47.0); HEMOGLOBIN 15.3 gm/dL (12.0-15.0); MCHC 34.7 g/dL (28.0-37.0); MCV 86.5 fL (80.0-100.0); MPV 7.5 fl. (7.2-11.1); NUCLEATED RBCS 0 /100WBC; PLATELET COUNT* 234 thou/uL (150-400); RBC 5.09 mil/uL (4.20-5.00); RDW-CV 19.5 % (10.5-14.5); WBC 9.6 thou/uL (4.0-11.0)
[2020-10-17 09:40] LABS: CALCIUM 9.5 mg/dL (8.5-10.1); CREATININE 1.2 mg/dL (0.6-1.3); POTASSIUM 3.7 mmol/L (3.5-5.1)
[2020-10-17 09:44] LABS: ALBUMIN 3.7 g/dL (3.4-5.0); TOTAL BILIRUBIN 0.3 mg/dL (<0.1-1.0); TOTAL PROTEIN 7.6 g/dL (6.4-8.2)
[2020-10-17 10:06] LABS: ABSOLUTE LYMPHOCYTES 0.3 thou/uL (0.8-5.3); ABSOLUTE MONOCYTES 0.2 thou/uL (0.0-1.2); ABSOLUTE NEUTROPHILS 9.1 thou/uL (1.6-8.1); PLATELET ESTIMATE ADEQUATE
[2020-10-17] MEDS ORDERED: ZOFRAN ODT4 MG DISSOLVE (12:20)
[2020-10-17] MEDS ORDERED: DULCOLAX STOOL100 M1 PO (12:21)
[2020-10-17 12:45] VITALS: BP 156/99
[2020-10-17 12:53] LABS: URINE BILIRUBIN NEGATIVE (Negative); URINE BLOOD TRACE (Negative); URINE CLARITY CLEAR; URINE COLOR YELLOW; URINE GLUCOSE-RANDOM NEGATIVE (Negative); URINE KETONES NEGATIVE (Negative); URINE LEUKOCYTES-REFLEX NEGATIVE (Negative); URINE NITRITE-REFLEX NEGATIVE (Negative); URINE PROTEIN TRACE (Negative); URINE UROBILINOGEN 0.2 E.U./dl (0.2-1.0)
--- NOTE | 2020-10-17 16:33 | EKG ---
[place] [address] ELECTROCARDIOGRAM REPORT Name: KAYCEE,PRICE A Room: [facility]#: [id number] Admission: 10/17/20 Attend Phys: Discharge: 10/17/20 Date of : 67 Date of Service: 10/17/20 0917 Report #: [id number] THIS REPORT FOR: //name// [facility] ED Test Date: 2020-10-17 Test Time: 09:17:08 Pat Name: PRICE BENOIT Department: Room: Gender: Boiler Helper: MOUNIKA : 1965 Requested By: Elio Gold Order Number: [id number] MD: Doug King Measurements Intervals [place] Rate: 120 P: 54 [place]: 154 QRS: -37 QRSD: 94 T: 81 QT: 329 QTc: 465 Interpretive Statements Pacemaker spikes or artifacts Sinus tachycardia Probable left atrial enlargement Left axis deviation RSR' in V1 or V2, right VCD Artifact in lead(s) I,II,III,aVL,V1,V3,V4,V5,V6 Compared to ECG 09/24/2020 19:27:02 Left-axis deviation persists RSR' in V1 or V2 now present Electronically Signed On 10-17-2020 16:33:06 CDT by Doug King [email or web address] <ELECTRONICALLY SIGNED> By: Doug King MD, [facility] 10/17/20 1633 6 6 Doug King MD, [facility] /EPI
--- NOTE | 2020-10-17 16:34 | EKG ---
[place] [address] ELECTROCARDIOGRAM REPORT Name: KAYCEE,GIA Nikos Room: [facility]#: [id number] Admission: 10/17/20 Attend Phys: Discharge: 10/17/20 Date of : 67 Date of Service: 10/17/20917 Report #: [id number] THIS REPORT FOR: //name// [facility] ED Test Date: 2020-10-17 Test Time: 09:18:42 Pat Name: PRICE BENOIT Department: Room: Gender: Narrow Fabric Calenderer: MOUNIKA : 1965 Requested By: Elio Gold Order Number: [id number] Rhys MD: Doug King Measurements Intervals [place] Rate: 119 P: 39 [place]: 150 QRS: -33 QRSD: 95 T: 85 QT: 329 QTc: 463 Interpretive Statements Pacemaker spikes or artifacts Sinus tachycardia Probable left atrial enlargement Left axis deviation RSR' in V1 or V2, probably normal variant Borderline ST depression, lateral leads Artifact in lead(s) I,II,III,aVR,aVL,V1,V2,V3,V4,V5,V6 Compared to ECG 10/17/2020 09:17:0 No significant interval change Electronically Signed On 10-17-2020 16:33:52 CDT by Doug King [email or web address] <ELECTRONICALLY SIGNED> By: Doug King MD, [facility] 10/17/20 1633 7 7 Doug King MD, [facility] /EPI
== END 2020-10-17 12:45 | disposition home or self-care (01) ==
LOC: M.ERS 08:55
PROVIDERS: Emergency Medicine Emergency Medical Services
DX: R10.32 Left lower quadrant pain (principal); R11.2 Nausea with vomiting, unspecified; F17.210 Nicotine dependence, cigarettes, uncomplicated; J44.9 Chronic obstructive pulmonary disease, unspecified; K31.84 Gastroparesis; Z79.899 Other long term (current) drug therapy; Z90.49 Acquired absence of other specified parts of digestive tract; Z85.118 Personal history of other malignant neoplasm of bronchus and lung; Z98.51 Tubal ligation status; Z90.710 Acquired absence of both cervix and uterus

== ENCOUNTER 2020-11-10 22:09 | Emergency (ER) | payer OTHER ==
[~2020-11-10] VITALS: Ht 167.6 cm; Wt 90.7 kg
[~2020-11-10 22:09] MED LIST changes: +DULCOLAX STOOL100 M1 PO; +ZOFRAN ODT4 MG DISSOLVE
[2020-11-11 00:08] LABS: HEMATOCRIT 46.3 % (37.0-47.0); HEMOGLOBIN 15.3 gm/dL (12.0-15.0); MCH 29.8 pg (26.0-34.0); MCHC 33.2 g/dL (28.0-37.0); MCV 89.7 fL (80.0-100.0); RBC 5.16 mil/uL (4.20-5.00); RDW-CV 20.8 % (10.5-14.5); WBC 8.3 thou/uL (4.0-11.0)
[2020-11-11 00:12] LABS: CALCIUM 9.2 mg/dL (8.5-10.1); POTASSIUM 3.7 mmol/L (3.5-5.1)
[2020-11-11] MEDS ORDERED: PHENERGAN 25 MG25 M1 PO (01:39)
[2020-11-11 01:51] VITALS: BP 109/69
--- NOTE | 2020-11-11 09:19 | EKG ---
[place] [address] ELECTROCARDIOGRAM REPORT Name: PRICE BENOIT Room: [facility]#: [id number] Admission: 11/10/20 Attend Phys: Discharge: 11/11/20 Date of : 67 Date of Service: 11/10/202219 Report #: [id number] THIS REPORT FOR: //name// [facility] ED Test Date: 2020-11-10 Test Time: 22:20:24 Pat Name: PRICE BENOIT Department: Room: Gender: Glory Hole Tender: [place] : 1965 Requested By: Anel Irby Order Number: [id number] MD: Reilly Laughlin Measurements Intervals [place] Rate: 125 P: 49 ID: 149 QRS: -28 QRSD: 88 T: 86 QT: 329 QTc: 475 Interpretive Statements Sinus tachycardia Borderline left axis deviation RSR' in V1 or V2, right VCD or RVH Compared to ECG 10/17/2020 09:18:42 no change Electronically Signed On 11-11-2020 9:19:33 CDT by Reilly Laughlin [email or web address] <ELECTRONICALLY SIGNED> By: Reilly Laughlin MD, [facility] 11/11/20 0919 2220 19 Reilly Laughlin MD, [facility] /EPI
== END 2020-11-11 01:51 | disposition home or self-care (01) ==
LOC: M.ERS 22:09
PROVIDERS: Personal Emergency Response Attendant
DX: R10.84 Generalized abdominal pain (principal); R11.2 Nausea with vomiting, unspecified; F32.9 Major depressive disorder, single episode, unspecified; F41.9 Anxiety disorder, unspecified; G25.81 Restless legs syndrome; K31.84 Gastroparesis; J44.9 Chronic obstructive pulmonary disease, unspecified; Z79.899 Other long term (current) drug therapy; Z98.51 Tubal ligation status; Z90.49 Acquired absence of other specified parts of digestive tract; Z90.710 Acquired absence of both cervix and uterus; Z87.891 Personal history of nicotine dependence

== ENCOUNTER 2021-01-01 02:29 | Emergency (ER) | payer OTHER ==
[~2021-01-01] VITALS: Ht 167.6 cm; Wt 90.7 kg
[2021-01-01 05:57] VITALS: BP 174/103
== END 2021-01-01 05:58 | disposition home or self-care (01) ==
LOC: M.ERS 02:29
DX: R11.2 Nausea with vomiting, unspecified (principal); R25.1 Tremor, unspecified; R10.13 Epigastric pain; F41.9 Anxiety disorder, unspecified; G62.9 Polyneuropathy, unspecified; J44.9 Chronic obstructive pulmonary disease, unspecified; Z90.711 Acquired absence of uterus with remaining cervical stump; Z90.49 Acquired absence of other specified parts of digestive tract; Z98.51 Tubal ligation status; F32.9 Major depressive disorder, single episode, unspecified; Z96.652 Presence of left artificial knee joint; Z79.899 Other long term (current) drug therapy; Z87.891 Personal history of nicotine dependence

== ENCOUNTER 2021-01-27 07:17 | Emergency (ER) | payer OTHER ==
[~2021-01-27] VITALS: Ht 167.6 cm; Wt 83.9 kg
[2021-01-27 09:52] LABS: URINE BILIRUBIN NEGATIVE (Negative); URINE BLOOD NEGATIVE (Negative); URINE CLARITY CLEAR; URINE COLOR YELLOW; URINE GLUCOSE-RANDOM NEGATIVE (Negative); URINE KETONES NEGATIVE (Negative); URINE LEUKOCYTES-REFLEX NEGATIVE (Negative); URINE NITRITE-REFLEX NEGATIVE (Negative); URINE PROTEIN NEGATIVE (Negative); URINE UROBILINOGEN 0.2 E.U./dl (0.2-1.0)
--- NOTE | 2021-01-27 10:05 | EKG ---
[place] [address] ELECTROCARDIOGRAM REPORT Name: PRICE BENOIT Room: [facility]#: [id number] Admission: 01/27/21 Attend Phys: Discharge: Date of : 67 Date of Service: 01/27/21 0754 Report #: [id number] THIS REPORT FOR: //name// [facility] ED Test Date: 2021-01-27 Test Time: 07:54:36 Pat Name: PRICE BENOIT Department: Room: Gender: Agronomy Manager: : 1965 Requested By: Elio Gold Order Number: [id number] MD: Clay Oneil Measurements Intervals [place] Rate: 114 P: 37 [place]: 178 QRS: -23 QRSD: 88 T: 70 QT: 323 QTc: 445 Interpretive Statements Sinus tachycardia Probable left atrial enlargement Borderline left axis deviation Abnormal R-wave progression, early transition Compared to ECG 11/10/2020 22:20:24 Right ventricular hypertrophy no longer present Electronically Signed On 01-27-2021 10:05:42 CDT by Clay Oneil [email or web address] <ELECTRONICALLY SIGNED> By: Armani Oneil MD, [facility] 01/27/21 1005 0754 0754 Armani Oneil MD, [facility] /EPI
[2021-01-27 11:30] LABS: CALCIUM 9.4 mg/dL (8.5-10.1); CREATININE 0.8 mg/dL (0.6-1.3); POTASSIUM 4.4 mmol/L (3.5-5.1)
[2021-01-27 11:34] LABS: ALBUMIN 3.6 g/dL (3.4-5.0); TOTAL BILIRUBIN 0.3 mg/dL (<0.1-1.0); TOTAL PROTEIN 7.1 g/dL (6.4-8.2)
[2021-01-27 11:52] LABS: ABSOLUTE BASOPHILS 0.1 thou/uL (0.0-0.2); ABSOLUTE LYMPHOCYTES 0.8 thou/uL (0.8-5.3); ABSOLUTE MONOCYTES 0.4 thou/uL (0.0-1.2); ABSOLUTE NEUTROPHILS 5.9 thou/uL (1.6-8.1); BASOPHILS 0.7 %; HEMATOCRIT 42.2 % (37.0-47.0); HEMOGLOBIN 14.2 gm/dL (12.0-15.0); LYMPHOCYTES 10.8 %; MCH 31.9 pg (26.0-34.0); MCHC 33.7 g/dL (28.0-37.0); MCV 94.6 fL (80.0-100.0); MONOCYTES 5.8 %; MPV 7.3 fl. (7.2-11.1); NUCLEATED RBCS 0 /100WBC; PLATELET COUNT* 220 thou/uL (150-400); POLYS 82.7 %; RBC 4.46 mil/uL (4.20-5.00); RDW-CV 14.4 % (10.5-14.5); WBC 7.1 thou/uL (4.0-11.0)
[2021-01-27 12:29] VITALS: BP 141/70
== END 2021-01-27 12:30 | disposition home or self-care (01) ==
LOC: M.ERS 07:17
PROVIDERS: Emergency Medicine Emergency Medical Services
DX: R11.2 Nausea with vomiting, unspecified (principal); R10.13 Epigastric pain; F41.0 Panic disorder [episodic paroxysmal anxiety]; G62.9 Polyneuropathy, unspecified; J44.9 Chronic obstructive pulmonary disease, unspecified; Z90.711 Acquired absence of uterus with remaining cervical stump; Z98.890 Other specified postprocedural states; Z90.49 Acquired absence of other specified parts of digestive tract; Z98.51 Tubal ligation status; Z85.118 Personal history of other malignant neoplasm of bronchus and lung; Z96.652 Presence of left artificial knee joint; Z79.899 Other long term (current) drug therapy; Z87.891 Personal history of nicotine dependence